=== PATIENT | female | born 1995 | race Caucasian/White ===

== ENCOUNTER 2019-07-16 22:27 | Outpatient (REF) | payer SELFPAY ==
[2019-07-16 22:28] VITALS: BP 121/73; PULSE 68; RESP 18; TEMP 36.8; O2SAT 98; BMI 24.2
--- NOTE | 2019-07-16 22:38 | ED.DCSUM_ITS ---
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 Patient was emptying out a urine sample from a patient that had urinated in a hat. As she was pouring the urine out into the toilet it splashed up and she believes hit her in the left eye. Patient does wear contacts. Patient states this occurred about half an hour ago. Patient did take out her contact and irrigated her eye at the eye station. Patient washed her contact out. Patient is immunized. Patient otherwise has no medical history.] Physical Examination: [HEENT-PERRLA, EOMI. Cranial nerves II through XII grossly intact. TMs clear. Mucous membranes moist. No adenopathy. Cardiovascular-regular rate and rhythm without murmur or ectopy Lungs-clear to auscultation, chest wall stable without crepitus or subcu emphysema Abdomen-normoactive bowel sounds, soft, nontender, no rebound or rigidity, no peritoneal signs. 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 It may contain incorrect words, spelling, and punctuation that were not noted in review of the chart prior to signing ED Disposition - Plan for ED Patient: Referrals: Lorenzo Del Toro DO [Primary Care Provider] -
--- NOTE | 2019-07-16 22:41 | DCINST.ED_ITS ---
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
--- NOTE | 2019-07-16 22:41 | ED.DEP ---
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
[2019-07-17 01:32] LABS: Hepatitis B Surface Antibody Reactive; Hepatitis B Surface Antigen Non-Reactive (Nonreactive); Hepatitis C Antibody Non-Reactive (Nonreactive)
--- NOTE | 2019-07-17 01:42 | ED.RN ---
PT PRELIM HIV REACTIVE REPORTED TO DR. JIMENES. STATES UNDERSTANDING AND VERBALIZES TO CONTINUE PROCESS TO SEND LAB OUT AND FOLLOW UP.
[2019-07-17 01:59] LABS: HIV - WCH Preliminary Reactive (Nonreactive)
== END 2019-07-16 22:52 | disposition home or self-care (01) ==
LOC: ED 22:27
PROVIDERS: PCP Student in an Organized Health Care Education/Training Program; Visit Provider Emergency Medicine
DX: Z77.21 Contact with and (suspected) exposure to potentially hazardous body fluids (principal); Z57.8 Occupational exposure to other risk factors
CPT/HCPCS: 86703; 86706; 86803; 87340

== ENCOUNTER → 2021-01-11 06:09 | Outpatient (CLI) | payer BC, SELFPAY ==
[2021-01-11 07:03] LABS: Absolute Lymphocyte Count 2.34 X10^3/uL (0.83-4.51); Absolute Neutrophil Count 4.1 X10^3/uL (2.0-7.7); Basophil# 0.03 X10^3/uL; Basophil% 0.4 % (0-1); Eosinophil# 0.06 X10^3/uL; Eosinophils% 0.8 % (0-5); Hematocrit 42.2 % (37-47); Hemoglobin 13.7 g/dL (12.0-15.0); Lymphocyte # 2.34 X10^3/ul (0.83-4.51); Lymphocyte % 32.6 % (19-41); Mean Corp Hgb Conc 32.5 g/dL (32-36); Mean Corpuscular Hgb 28.6 pg (27.0-32.0); Mean Corpuscular Volume 88.1 fL (81-99); Mean Platelet Vol. 9.6 fl (6.2-12.0); Monocyte# 0.58 X10^3/uL; Monocyte% 8.1 % (0-10); NRBC Flagged by Analyzer 0 % (0-5); Neutrophil # 4.14 X10^3/uL (2.7-7.7); Neutrophil % 57.8 % (47-70); Platelet Count 305 K/mm3 (150-450); RBC Distribution Width CV 12.4 % (11.6-14.6); RBC Distribution Width SD 40.6 fl (35.1-43.9); Red Blood Count 4.79 M/mm3 (4.2-5.4); White Blood Count 7.2 K/mm3 (4.4-11.0)
[2021-01-11 07:53] LABS: ALB/GLOB Ratio 1.1 RATIO (0.9-2.4); AST(SGOT) 14 U/L (15-37); Alanine Aminotransfer ALT/SGPT 21 U/L (13-56); Albumin, Serum 4.2 g/dL (3.2-5.0); Alkaline Phosphatase 58 U/L (45-117); Anion Gap 9 (5-15); BUN 15 mg/dL (7-18); BUN/Creat Ratio 19.1 RATIO (10-20); Calcium,Total 9.3 mg/dL (8.5-10.1); Chloride 103 mmol/L (98-107); Cholesterol 173 mg/dL (200); Creatinine, Serum 0.78 mg/dL (0.55-1.02); EST Glomerular Filtration Rate 94 mL/min (>60); Est Glom Filt Rate - Afr Amer 114 mL/min (>60); Globulin 3.7 g/dL (2.2-4.2); Glucose 85 mg/dL (74-106); High Density Lipoprotein 76 mg/dL; Potassium 3.5 mmol/L (3.5-5.1); Protein, Total 7.9 g/dL (6.4-8.2); Sodium Level 137 mmol/L (136-145); Thyroid Stim Hormone (TSH) 2.79 uIU/mL (0.358-3.74); Triglycerides 72 mg/dL; Very Low Density Lipoprotein 14 mg/dL (5-40)
[2021-01-11 08:42] LABS: Hemoglobin A1c 5.2 % (3.8-5.6)
[2021-01-11 09:45] LABS: Vitamin D,25 Hydroxy 59.5 ng/mL
== END ==
PROVIDERS: PCP Student in an Organized Health Care Education/Training Program; Referring Provider Student in an Organized Health Care Education/Training Program; Visit Provider Student in an Organized Health Care Education/Training Program
DX: Z00.00 Encounter for general adult medical examination without abnormal findings (principal)
CPT/HCPCS: 36415; 80053; 80061; 82306; 83036; 84443; 85025

== ENCOUNTER 2021-06-22 17:13 | Emergency (ER) | payer OTHER, SELFPAY ==
[2021-06-22 17:14] VITALS: BP 118/82; PULSE 110; RESP 15; TEMP 35.8; O2SAT 98; BMI 24.1
--- NOTE | 2021-06-22 17:28 | EX.ED.DYSGE1 ---
HPI History of Present Illness Chief Complaint: Nausea/Vomiting/Diarrhea Detail of Chief Complaint: Vomiting and diarrhea that started 4 days ago Informant: patient Narrative Narrative: Patient presents to the emergency department complaint not feeling well for the last 4 days. Patient states that she has been having watery stool about every hour. Patient denies any fevers. Patient has not had any sick contacts. She denies eating under cooked foods or suspicious foods. She did have some milk the day before that did not taste quite right she states. Patient describes some mild epigastric pain. Patient also denies dysuria. She denies fever. She denies recent antibiotic usage. Prior similar symptoms: No PFSH PFSH Medical History no medical history Home Medications dicyclomine 20 mg PO TIDAC #20 capsule 06/22/21 [Rx Last Taken Unknown] ondansetron 4 mg PO Q8H PRN PRN #10 tab 06/22/21 [Rx Last Taken Unknown] Allergy/AdvReac Type Severity Reaction Status Date / Time No Known Allergies Allergy Verified 07/16/19 22:30 Social History Smoking Status: Never smoker ROS ROS ED Constitutional Constitutional ED: Reports systems reviewed and no addt'l complaints, except as documented; Denies body ache(s), change in weight or chills Eyes Eyes: Denies acute decrease in peripheral vision, change in vision, double vision or loss of vision ENT ENT ED: Reports none; Denies ear pain, lip swelling, loss taste/smell, neck pain, otalgia or sore throat Cardiovascular Cardiovascular: Reports none; Denies abdominal pain, chest pain with activity, leg edema, lightheadedness, palpitations, rapid heart rate or syncope Respiratory/Chest Respiratory/Chest: Reports none; Denies change in mental status, dry cough, dyspnea, hemoptysis, shortness of breath at rest or shortness of breath with exertion Gastrointestinal Gastrointestinal: Reports none, abdominal pain, diarrhea, nausea and vomiting; Denies change in stool character, hematemesis, hematochezia, melena or rectal bleeding Genitourinary Genitourinary ED: Reports none; Denies abdominal discomfort, anuria, dysuria, genital pain or polyuria Musculoskeletal Musculoskeletal: Reports none; Denies arthralgias, back pain, difficulty walking, extremity pain, muscle weakness or myalgias Integumentary Reports none; Denies abscess or rash Neurologic Neurologic: Reports none; Denies abnormal gait, confusion, focal weakness, frequent falls, headache(s), loss of vision, numbness, paresthesias, radicular pain, vertigo or weakness Psychiatric Psychiatric: Reports systems reviewed and no addt'l complaints, except as documented and none; Denies behavioral changes, confusion, difficulty concentrating, hallucinations, suicidal ideation, tactile hallucinations or visual hallucinations Endocrine Endocrinology: Denies none, cold intolerance, excessive sweating, fatigue or heat intolerance Hematologic/Lymphatic Hematologic/Lymphatic: Reports none; Denies anemia, easy bleeding or easy bruising Allergic/Immunologic Allergic/Immunologic ED: Denies as per HPI, none, lip swelling, mouth swelling, throat swelling, tongue swelling or hives EXAM Physical Exam Const Vital Signs: 06/22/21 17:14 Temperature 96.4 F L Temperature Source Temporal Pulse Rate 110 H Respiratory Rate 15 Blood Pressure 118/82 H Blood Pressure Mean 94 Pulse Ox 98 Oxygen Delivery Method Room Air Positive well nourished and well developed General Appearance ED: well developed and NAD HEENT Reports TM's clear and moist mucous membranes normocephalic and atraumatic; Negative for trauma or tenderness Tympanic Membrane ED: Yes TM's clear Eyes PERRL and EOMs intact bilaterally General Eye ED: Negative for pale conjunctiva or scleral icterus Neck no lymphadenopathy, supple and no JVD General: Negative for tenderness Chest Wall inspection of chest normal and palpation of chest normal Chest: Negative for tenderness Resp normal respiratory effort and clear to auscultation bilaterally Effort and Inspection: Negative for respiratory distress or pain with movement Auscultation: Negative for rhonchi, wheezes or diminished lung sounds Cardio regular rate, regular rhythm, S1 normal heart sound, S2 normal heart sound and no murmurs Peripheral Pulses: pulses 2+ throughout GI normal to inspection, nondistended, normoactive bowel sounds, soft to palpation, non-tender, non-distended and no masses GI Narrative: Patient with some tenderness over the epigastric region. There is no rebound, rigidity, or peritoneal signs. Back/Spine no CVA tenderness and no thoracic nor lumbar tenderness Extremity normal to inspection General Extremety ED: Negative for edema General Extremity: Negative for edema Neuro oriented x3, CN's II-XII intact bilaterally, no sensory deficits noted and gait normal Sensorium / Orientation: awake, alert, oriented to person, oriented to place and oriented to time Motor Exam: strength 5/5 throughout and strength abnormal Psych mental status grossly normal Skin no rashes or lesions noted and no wounds MDM MDM MDM Narrative Medical decision making narrative: IV line established on arrival. Patient was given a liter normal same fluid bolus as well as Zofran and dicyclomine. Patient did feel improved. Lab work-up unremarkable and consistent with a viral gastroenteritis. Patient will be given a prescription for Zofran and Bentyl and advised to follow-up with primary care physician with the next 3 to 5 days. Patient advised to return if persistent vomiting, diarrhea, dehydration, fever, worsening abdominal pain, or condition worsen anyway. Lab Data Attestation: I reviewed the patient's lab results. Labs: Laboratory Results - last 24 hr 06/22/21 06/22/21 06/22/21 17:35 17:35 17:35 WBC 4.0 L RBC 5.28 Hgb 15.1 H Hct 43.8 MCV 83.0 MCH 28.6 MCHC 34.5 RDW Std Deviation 37.3 RDW Coeff of Jennifer 12.2 Plt Count 283 MPV 9.3 Immature Gran % (Auto) 0.200 Neut % (Auto) 71.4 H Lymph % (Auto) 18.2 L [place] % (Auto) 9.2 Eos % (Auto) 0.5 Baso % (Auto) 0.5 Absolute Neuts (auto) 2.9 Absolute Lymphs (auto) 0.73 L Nucleated RBC % 0 Sodium 136 Potassium 3.8 Chloride 109 H Carbon Dioxide 22.0 Anion Gap 5 BUN 14 Creatinine 0.88 Estim Creat Clear Calc 94.21 Est GFR (MDRD) Af Amer 99 Est GFR (MDRD) Non-Af 82 BUN/Creatinine Ratio 15.9 Glucose 96 Calcium 9.4 Total Bilirubin 0.30 AST 15 ALT 20 Alkaline Phosphatase 65 Total Protein 8.1 Albumin 4.2 Globulin 3.9 Albumin/Globulin Ratio 1.1 Lipase 91 Serum , Qual NEGATIVE Urine Color Urine Clarity Urine pH Ur Specific [place] Urine Protein Urine Glucose (UA) Urine Ketones Urine Occult Blood Urine Nitrite Urine Bilirubin Urine Urobilinogen Ur Leukocyte Esterase Urine RBC Urine WBC Ur Squamous Epith Cells Calcium Oxalate Crystal Urine Bacteria Urine Mucus 06/22/21 17:49 WBC RBC Hgb Hct MCV MCH MCHC RDW Std Deviation RDW Coeff of Jennifer Plt Count MPV Immature Gran % (Auto) Neut % (Auto) Lymph % (Auto) [place] % (Auto) Eos % (Auto) Baso % (Auto) Absolute Neuts (auto) Absolute Lymphs (auto) Nucleated RBC % Sodium Potassium Chloride Carbon Dioxide Anion Gap BUN Creatinine Estim Creat Clear Calc Est GFR (MDRD) Af Amer Est GFR (MDRD) Non-Af BUN/Creatinine Ratio Glucose Calcium Total Bilirubin AST ALT Alkaline Phosphatase Total Protein Albumin Globulin Albumin/Globulin Ratio Lipase Serum , Qual Urine Color Cailin Urine Clarity Sl. Cloudy Urine pH 5.0 Ur Specific [place] 1.030 Urine Protein 30 H Urine Glucose (UA) Normal Urine Ketones 50 H Urine Occult Blood 10 H Urine Nitrite Negative Urine Bilirubin 1 H Urine Urobilinogen Normal Ur Leukocyte Esterase Negative Urine RBC 0-5 SEEN Urine WBC 0-5 SEEN Ur Squamous Epith Cells 5-10 SEEN Calcium Oxalate Crystal 1+ Urine Bacteria 2+ Urine Mucus 0 SEEN Discharge Plan Triage Chief Complaint: Nausea/Vomiting/Diarrhea ED Provider: Frida Glass Dx/Rx/DC Orders Clinical Impression: Viral gastroenteritis Instructions: ED Gastroenteritis, Viral (Adult) Prescriptions: New ondansetron [ondansetron] 4 MG tablet 4 mg PO Q8H PRN PRN (Reason: Nausea) Qty: 10 RF: 0 dicyclomine 10 MG capsule 20 mg PO TIDAC Qty: 20 RF: 0 Primary Care Provider: Lorenzo Del Toro Referrals: Lorenzo Del Toro DO [Primary Care Provider] - 3-5 Days Disposition Disposition: Home, Self Care
[2021-06-22] MEDS: Ondansetron 4 MG/2 ML Vial IV (17:44)
[2021-06-22] MEDS: Dicyclomine 20 MG/2 ML Vial IM (17:44)
[2021-06-22] MEDS: 0.9% Normal Saline 1,000 ML 1000 ML IV (17:44)
[2021-06-22 17:53] LABS: Mucous, Urine 0 SEEN /hpf (<or=2+)
[2021-06-22 17:56] LABS: Absolute Lymphocyte Count 0.73 X10^3/uL (0.83-4.51); Absolute Neutrophil Count 2.9 X10^3/uL (2.0-7.7); Basophil# 0.02 X10^3/uL; Basophil% 0.5 % (0-1); Eosinophil# 0.02 X10^3/uL; Eosinophils% 0.5 % (0-5); Hematocrit 43.8 % (37-47); Hemoglobin 15.1 g/dL (12.0-15.0); Lymphocyte # 0.73 X10^3/ul (0.83-4.51); Lymphocyte % 18.2 % (19-41); Mean Corp Hgb Conc 34.5 g/dL (32-36); Mean Corpuscular Hgb 28.6 pg (27.0-32.0); Mean Platelet Vol. 9.3 fl (6.2-12.0); Monocyte# 0.37 X10^3/uL; Monocyte% 9.2 % (0-10); NRBC Flagged by Analyzer 0 % (0-5); Neutrophil # 2.87 X10^3/uL (2.7-7.7); Neutrophil % 71.4 % (47-70); Platelet Count 283 K/mm3 (150-450); RBC Distribution Width CV 12.2 % (11.6-14.6); RBC Distribution Width SD 37.3 fl (35.1-43.9); Red Blood Count 5.28 M/mm3 (4.2-5.4)
[2021-06-22 17:58] LABS: Color, Urine Amber (Yellow); Glucose, Dipstick Normal (Normal); Ketone-Dipstick 50 mg/dl (Negative); Leukocyte Esterase-Dipstick Negative /ul (Negative); Nitrite-Dipstick Negative (Negative); Occult Blood-Urine 10 /ul (Negative); Protein-Dipstick 30 mg/dl (Negative); Urine Clarity Sl. Cloudy (Clear); Urine Urobilinogen Normal (Normal)
[2021-06-22 18:09] LABS: Urine Bilirubin Dipstick 1 mg/dL (Negative)
[2021-06-22 18:10] LABS: Squamous Epithelial Cells - UA 5-10 SEEN /hpf (5-10)
[2021-06-22 18:11] LABS: Bacteria 2+ /hpf (None Seen); Calcium Oxalate Crystals Ur 1+ /hpf (<or=2+); Red Blood Cells-Urine 0-5 SEEN /hpf (0-5); White Blood Cells 0-5 SEEN /hpf (0-5)
[2021-06-22 18:17] LABS: ALB/GLOB Ratio 1.1 RATIO (0.9-2.4); AST(SGOT) 15 U/L (15-37); Alanine Aminotransfer ALT/SGPT 20 U/L (13-56); Albumin, Serum 4.2 g/dL (3.2-5.0); Alkaline Phosphatase 65 U/L (45-117); Anion Gap 5 (5-15); BUN 14 mg/dL (7-18); BUN/Creat Ratio 15.9 RATIO (10-20); Calcium,Total 9.4 mg/dL (8.5-10.1); Chloride 109 mmol/L (98-107); Creatinine, Serum 0.88 mg/dL (0.55-1.02); EST Glomerular Filtration Rate 82 mL/min (>60); Est Glom Filt Rate - Afr Amer 99 mL/min (>60); Estimated Creatinine Clearance 94.21 ml/min; Globulin 3.9 g/dL (2.2-4.2); Glucose 96 mg/dL (74-106); Lipase 91 U/L (73-393); Potassium 3.8 mmol/L (3.5-5.1); Protein, Total 8.1 g/dL (6.4-8.2); Sodium Level 136 mmol/L (136-145)
[2021-06-22 18:25] LABS: Internal QC Validated? YES +Cl - CLEAR BKGD; Pregnancy, Serum, hCG Quali. NEGATIVE Negative
[2021-06-22 18:46] VITALS: BP 130/67; PULSE 80; RESP 16
== END 2021-06-22 18:47 | disposition home or self-care (01) ==
PROVIDERS: Emergency Provider Emergency Medicine; PCP Student in an Organized Health Care Education/Training Program; Visit Provider Emergency Medicine
DX: A08.4 Viral intestinal infection, unspecified (principal)
CPT/HCPCS: 80053; 81001; 83690; 84703; 85025; 96361; 96372; 96374; 99283; J7030; J2405

== ENCOUNTER → 2022-01-11 | Outpatient (CLI) | payer OTHER, SELFPAY ==
[2022-01-11 08:28] LABS: Free T3 2.8 pg/mL (2.18-3.98); T4 Free Direct 1.68 ng/dL (0.76-1.46); Thyroid Stim Hormone (TSH) 2.39 uIU/mL (0.358-3.74)
[2022-01-12 12:33] LABS: Thyroid Peroxidase AB 11 IU/mL (0-34)
== END | disposition home or self-care (01) ==
LOC: LAB 06:26
PROVIDERS: PCP Student in an Organized Health Care Education/Training Program; Referring Provider Student in an Organized Health Care Education/Training Program; Visit Provider Student in an Organized Health Care Education/Training Program
DX: E01.0 Iodine-deficiency related diffuse (endemic) goiter (principal)
CPT/HCPCS: 36415; 84439; 84443; 84481; 86376

== ENCOUNTER → 2024-02-11 | Outpatient (CLI) | payer OTHER, SELFPAY ==
[2024-02-11 14:40] LABS: Hematocrit 39.7 % (37-47); Hemoglobin 13.4 g/dL (12.0-15.0); Mean Corp Hgb Conc 33.8 g/dL (32-36); Mean Corpuscular Hgb 28.4 pg (27.0-32.0); Mean Corpuscular Volume 84.1 fL (81-99); Mean Platelet Vol. 9.6 fl (6.2-12.0); Platelet Count 290 K/mm3 (150-450); RBC Distribution Width CV 12.9 % (11.6-14.6); RBC Distribution Width SD 39.5 fl (35.1-43.9); Red Blood Count 4.72 M/mm3 (4.2-5.4); White Blood Count 6.3 K/mm3 (4.4-11.0)
[2024-02-11 15:10] LABS: Free T3 2.3 pg/mL (2.18-3.98); T4 Free Direct 2.29 ng/dL (0.76-1.46)
[2024-02-11 15:19] LABS: Hemoglobin A1c 5.3 % (3.8-5.6)
[2024-02-11 19:12] LABS: HIV - WCH Preliminary Reactive (Nonreactive); Hepatitis B Surface Antigen Non-Reactive (Nonreactive); Hepatitis C Antibody Non-Reactive (Nonreactive); Rubella IgG Reactive (Nonreactive); Syphilis Antibodies Non-reactive; Vitamin D,25 Hydroxy 38.5 ng/mL
== END | disposition home or self-care (01) ==
PROVIDERS: PCP Student in an Organized Health Care Education/Training Program; Referring Provider Student in an Organized Health Care Education/Training Program; Visit Provider Student in an Organized Health Care Education/Training Program
DX: Z34.91 Encounter for supervision of normal pregnancy, unspecified, first trimester (principal); Z3A.00 Weeks of gestation of pregnancy not specified
CPT/HCPCS: 36415; 82306; 83036; 84439; 84443; 84481; 85027; 86703; 86762; 86780; 86803; 86850; 86900; 86901; 87340

== ENCOUNTER 2024-08-20 11:10 | Inpatient (IN) | payer OTHER, SELFPAY ==
[2024-08-20] VITALS (56 sets, daily range): BP systolic 88–133; BP diastolic 46–89; PULSE 69–196; RESP 14–18; TEMP 36.1–37.4; O2SAT 91–100; BMI 29.1
--- OUTSIDE RECORDS SUMMARY | 2024-08-20 07:28 | XMS RPT_ITS | CCD ---
Author Organization [facility] Care Team Providers Care [employer] T[employer] Worker Name Role Phone JEANCARLOS GOLDSTEIN GENE Unavailable Unavailable JEANCARLOS GOLDSTEIN GENE Unavailable Unavailable TristonAbelJeancarlos G Unavailable Unavailable HUNTER FLOREZ Unavailable Unavailable Jeancarlos Goldstein G Unavailable Unavailable LORENZO DEL TORO Unavailable Unavailable Dr. Lorenzo Del Toro Primary Care Provider Dr. Lorenzo Del Toro Referring Provider Dr. Stephon Vela Attending Provider Lorenzo Del Toro DO Primary Care Provider Lorenzo Del Toro DO Primary Care Provider Lorenzo Dle Toro DO Primary Care Provider Kwong BILLING ANALYST.Kaitlynn MARTINEZ Unavailable Fanny BILLING ANALYST.Jocelyne MARTINEZ Unavailable Lorenzo Del Toro Referring Unavailable Lorenzo Del Toro Attending Unavailable Lorenzo Del Toro Primary Care Unavailable Kwong BILLING ANALYST.Kaitlynn MARTINEZ Unavailable LORENZO DEL TORO Primary Care Unavailable LORENZO DEL TORO Attending Unavailable LORENZO DEL TORO Primary Care Unavailable APRIL DA SILVA Attending Unavail able LORENZO DEL TORO Primary Care Unavailable BEATA DAHL Attending Unavailable LORENZO DEL TORO Primary Care Unavailable BEATA DAHL Attending Unavailable LORENZO DEL TORO Primary Care Unavailable BEATA DAHL Attending Unavailable LORENZO DEL TORO Primary Care Unavailable MALIA ROMERO Attending Unavailable LORENZO DEL TORO Primary Care Unavailable TAYLOR KING Attending Unavailable LORENZO DEL TORO Primary Care Unavailable LORENZO DEL TORO Primary Care Unavailable MALIA ROMERO Attending Unavailable LORENZO DEL TORO Primary Care Unavailable APRIL DA SILVA Attending Unavail able LORENZO DEL TORO Primary Care Unavailable MARY SHIN Attending Unavailable LORENZO DEL TORO Primary Care Unavailable APRIL DA SILVA Attending Unavail able LORENZO DEL TORO Primary Care Unavailable MARY SHIN Attending Unavailable LORENZO DEL TORO Primary Care Unavailable BEATA DAHL Attending Unavailable LORENZO DEL TORO Primary Care Unavailable KEVIN BRADFORD Attending Unavailable BEATA DAHL Referring Unavailable LORENZO DEL TORO Primary Care Unavailable BEATA DAHL Referring Unavailable LORENZO DEL TORO Primary Care Unavailable BEATA DAHL Attending Unavailable LORENZO DEL TORO Primary Care Unavailable Medications Current Medications Medication Drug Class(es) Dates Sig (Normalized) Sig (Original) aspirin 81 mg delayed release oral tablet (20 sources) Platelet Aggregation Inhibitor, Nonsteroidal Anti-inflammatory Drug Start: 01-07-2024 End: 04-03-2024 take 1 tablet by mouth once daily aspirin, enteric coated (ECOTRIN LOW STRENGTH) 81 mg EC tablet Indications: Supervision of other normal , antepartum (HCC) , with uncertain dates in first trimester (HCC) Take 1 tablet by mouth once daily. 90 tablet 3 04/03/2024 Active Calcium Carbonate (11 sources) calcium carbonat e (TUMS 500 ORAL) Active cholecalciferol 0.025 mg oral tablet (20 sources) Vitamin D Start: 07-02-2017 take 1 tablet by mouth once daily cholecalciferol (VITAMIN D3) 1,000 unit tab tablet Take 1 tablet by mouth once daily. 90 tablet 1 07/02/2017 Active Comment on above: Take 1 tablet by erick th once daily. dicyclomine hydrochloride 10 mg oral capsule (1 source) Anticholinergic Start: 06-22-2021 take 20 mg by mouth three times daily before mealtime Dicyclomine Active 20 MG PO THREE TIMES DAILY BEFORE MEALS June 22, 2021 6:31pm docusate sodium 100 mg oral tablet (11 sources) Start: 03-21-2024 Docusate Sodium 100 mg tab 03/21/2024 Active famotidine 20 mg oral tablet (4 sources) Histamine-2 Receptor Antagonist Start: 06-11-2024 take 1 tablet by mouth twice daily famotidine (PEPCID) 20 mg tablet Take 20 mg by mouth two times a day. 06/11/2024 Active ondansetron 4 mg oral tablet (4 sources) Serotonin-3 Receptor Antagonist Start: 03-13-2024 End: 04-12-2024 take 1 tablet by mouth every eight hours as needed ondansetron (ZOFRAN) 4 mg tablet Take 1 tablet by mouth every 8 hours as needed for nausea/vomiting. 40 tablet 1 03/13/2024 04/12/2024 Active Start: 06-22-2021 take 4 mg by mouth e very eight hours as needed Ondansetron Active 4 MG PO EVERY 8 HOURS NEEDED June 22, 2021 6:31pm 25/iron fum/folic/d villar (-1 ORAL) (20 sources) take 1 tablet by erick th once daily 25/iron fum/folic/dha (-1 ORAL) Take 1 tablet by mouth once daily. Active take 1 tablet by mouth once mike y 25/iron fum/folic/dha (-1 ORAL) Take 1 tablet by mouth once daily. 0 Active Comment on above: Take 1 tablet by erick th once daily. Completed/Discontinued Medications Medication Drug Class(es) Dates Sig (Normalized) Sig (Original) MULTIVITAMIN ORAL (2 sources) End: 12-31-2022 MULTIVITAMIN ORAL Take by mouth. 0 12/31/2022 Discontinued (Course of therapy completed) MULTIVITAMIN ORA L Take by mouth. 0 Active Comment on above: Take by mouth. vitamin b6 100 mg oral tablet (7 sources) End: 07-06-2024 pyridoxine, vitamin B6, (VITAMIN B-6) 100 mg tablet 07/06/2024 Discontinued (Course of therapy completed) Problems Active Problems Problem Classification Problem Date Documented Da te Episodic/Chronic Intestinal infection (1 source) Viral gastroenteritis; Translations: [Viral intestinal infection, unspecified] Episodic Other complications of (1 source) Vomiting of , unspecified; Translations: [Unspecified vomiting of , unspecified as to episode of care or not applicable] 03-13-2024 Episodic Other complications of (3 sources) RhD negative; Translations: [Other specified related conditions, unspecified trimester] 05-27-2024 Episodic Other complications of (1 source) Other specified related conditions, unspecified trimester; Translations: [Rh negative state in antepartum period (HCC)] Onset: 07-28-2024 Episodic Other and delivery including normal (20 sources) with uncertain dates; Translations: [Encounter for supervision of normal , unspecified, first trimester] Onset: 01-07-2024 01-07-2024 Episodic Other screening for suspected conditions (not mental disorders or infectious disease) (7 sources) Patient encounter status; Translations: [Encounter for other specified screening] Onset: 04-03-2024 02-14-2024 Episodic Residual codes; unclassified (1 source) Gestation period, 9 weeks; Translations: [9 weeks gestation of ] 01-21-2024 Episodic Residual codes; unclassified (3 sources) Gestation period, 13 weeks; Translations: [13 weeks gestation of ] 02-14-2024 Episodic Residual codes; unclassified (1 source) Gestation period, 16 weeks; Translations: [16 weeks gestation of ] 03-10-2024 Episodic Residual codes; unclassified (2 sources) Gestation period, 20 weeks; Translations: [20 weeks gestation of ] 04-03-2024 Episodic Residual codes; unclassified (1 source) Gestation period, 24 weeks; Translations: [24 weeks gestation of ] 05-01-2024 Episodic Residual codes; unclassified (1 source) Gestation period, 27 weeks; Translations: [27 weeks gestation of ] 05-27-2024 Episodic Residual codes; unclassified (1 source) Gestation period, 29 weeks; Translations: [29 weeks gestation of ] 06-09-2024 Episodic Residual codes; unclassified (1 source) Gestation period, 31 weeks; Translations: [31 weeks gestation of ] 06-22-2024 Episodic Residual codes; unclassified (1 source) Gestation period, 33 weeks; Translations: [33 weeks gestation of ] 07-06-2024 Episodic Residual codes; unclassified (1 source) Gestation period, 35 weeks; Translations: [35 weeks gestation of ] 07-20-2024 Episodic Residual codes; unclassified (1 source) Gestation period, 36 weeks; Translations: [36 weeks gestation of ] 07-28-2024 Episodic Residual codes; unclassified (1 source) Gestation period, 38 weeks; Translations: [38 weeks gestation of ] 08-11-2024 Episodic Residual codes; unclassified (1 source) 39 weeks gestation of ; Translations: [39 weeks gestation of (HCC)] Onset: 08-19-2024 Episodic Residual codes; unclassified (1 source) 38 weeks gestation of ; Translations: [38 weeks gestation of (HCC)] Onset: 08-11-2024 Episodic Residual codes; unclassified (1 source) 37 weeks gestation of ; Translations: [37 weeks gestation of (HCC)] Onset: 08-04-2024 Episodic Residual codes; unclassified (1 source) 36 weeks gestation of ; Translations: [36 weeks gestation of ([facility])] Onset: 07-28-2024 Episodic Residual codes; unclassified (1 source) Unspecified blood type, Rh negative; Translations: [Rh negative state in antepartum period ([facility])] Onset: 07-28-2024 Episodic Residual codes; unclassified (1 source) 35 weeks gestation of ; Translations: [35 weeks gestation of ([facility])] Onset: 07-20-2024 Episodic Residual codes; unclassified (1 source) 33 weeks gestation of ; Translations: [33 weeks gestation of ([facility])] Onset: 07-06-2024 Episodic Residual codes; unclassified (1 source) 24 weeks gestation of ; Translations: [24 weeks gestation of ] Onset: 05-27-2024 Episodic Thyroid disorders (1 source) Goiter; 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 Unclassified (2 sources) Unknown / UNK(Unknown) Onset: 10-29-2017 Unclassified (20 sources) [facility] Education - COMMON Onset: 01-07-2024 01-07-2024 Unclassified (20 sources) Education - [place] Onset: 01-07-2024 01-07-2024 Past or Other Problems Problem Classification Problem Date Documented Da te Episodic/Chronic Abdominal pain (20 sources) Right upper quadrant pain; Translations: [Right upper quadrant pain] Onset: 06-27-2015 Resolved: 04-03-2024 06-27-2015 Episodic Nutritional deficiencies (20 sources) Vitamin D deficiency; Translations: [Vitamin D deficiency, unspecified] Onset: 12-16-2017 Resolved: 04-03-2024 12-16-2017 Chronic Other connective tissue disease (20 sources) Disorder of Achilles tendon; Translations: [Achilles tendinitis, unspecified leg] Onset: 06-16-2008 Resolved: 04-03-2024 06-16-2008 Episodic Residual codes; unclassified (16 sources) Finding of HIV status; Translations: [Other specified health status] Onset: 02-17-2024 02-17-2024 Episodic Residual codes; unclassified (1 source) 9 weeks gestation of ; Translations: [9 weeks gestation of ] Onset: 01-21-2024 Episodic Unclassified (1 source) employee health Onset: 10-29-2017 Results Test Name Value Interpretation Reference Range Facil ity URINE OB DIP B/Oon 5 Glucose Ql (U) Negative Neg mg/dL [facility] [place] Protein.monoclonal (U) [Mass/Vol] Negative Neg mg/dL [facility] ROUTINE, GROUP B ST REPTOCOCCUS BY PCRon 07-28-2024 ROUTINE, GROUP B STREPTOCOCCUS BY PCR Not detected Normal [facility] Comment on above: Performed By: #### G BPCR ####[facility] LABCLIA [id number] [place] [address] [place] URINE OB DIP B/Oon 5 Glucose Ql (U) Negative Neg mg/dL [facility] Interpretation and review of laboratory results Normal [facility] Protein.monoclonal (U) [Mass/Vol] Negative Neg mg/dL [facility] CBC W Auto Differential pane l (Bld)on 05-27-2024 Basophils (Bld) [#/Vol] 0.03 10*3/uL Normal <0.11 [facility] Comment on above: Order Comment: Becca saenz Type: BLOOD SPECIMENOrdering Facility: [facility] Address: [address] [place] [address] Performed By: #### 5 7021-8 ####[facility] [id number] [place] [address] [place] Basophils/100 WBC (Bld) 0.3 % Normal [facility] Comment on above: Order Comment: Speci men Type: BLOOD SPECIMENOrdering Facility: [facility] Address: [address] [place] [address] Performed By: #### 5 7021-8 ####[facility] LUI [id number] [place] [address] [place] Differential cell count method Nom (Bld) Auto Normal [facility] Comment on above: Order Comment: Speci men Type: BLOOD SPECIMENOrdering Facility: [facility] Address: [address] [place] [address] Performed By: #### 5 7021-8 ####[facility]NCJUVENCIO [id number] [place] [address] [place] Eosinophils (Bld) [#/Vol] 0.19 10*3/uL Normal <0.46 [facility] Comment on above: Order Comment: Speci men Type: BLOOD SPECIMENOrdering Facility: [facility] Address: [address] [place] [address] Performed By: #### 5 7021-8 ####[facility]ITALNCJOSELINEA [id number] [place] [address] [place] Eosinophils/100 WBC (Bld) 2.0 % Normal [facility] Comment on above: Order Comment: Speci men Type: BLOOD SPECIMENOrdering Facility: [facility] Address: [address] [place] [address] Performed By: #### 5 7021-8 ####[facility]ITALNCLIA [id number] [place] [address] [place] Erythrocyte distribution width (RBC) [Ratio] 13.0 % Normal 11.5-15.0 [facility] Comment on above: Order Comment: Speci men Type: BLOOD SPECIMENOrdering Facility: [facility] Address: [address] [place] [address] Performed By: #### 5 7021-8 ####[facility]ITALMENDYLIA [id number] [place] [address] [place] Hematocrit (Bld) [Volume fraction] 34.9 % Low 36.0-46.0 [facility] Comment on above: Order Comment: Speci men Type: BLOOD SPECIMENOrdering Facility: [facility] Address: [address] [place] [address] Performed By: #### 5 7021-8 ####[facility]ITALOZZIE [id number] [place] [address] [place] Hemoglobin (Bld) [Mass/Vol] 11.8 g/dL Normal 11.5-15.5 [facility] Comment on above: Order Comment: Speci men Type: BLOOD SPECIMENOrdering Facility: [facility] Address: [address] [place] [address] Performed By: #### 5 7021-8 ####[facility] [id number] [place] [address] [place] Immature granulocytes (Bld) [#/Vol] 0.05 10*3/uL Normal <0.10 [facility] Comment on above: Order Comment: Speci men Type: BLOOD SPECIMENOrdering Facility: [facility] Address: [address] [place] [address] Performed By: #### 5 7021-8 ####[facility]ITAL[facility] [id number] [place] [address] [place] Immature granulocytes/100 WBC (Bld) 0.5 % Normal [facility] Comment on above: Order Comment: Speci men Type: BLOOD SPECIMENOrdering Facility: [facility] Address: [address] [place] [address] Performed By: #### 5 7021-8 ####[facility]ITALNCLIA [id number] [place] [address] [place] Lymphocytes (Bld) [#/Vol] 1.26 10*3/uL Normal 1.00-4.00 [facility] Comment on above: Order Comment: Speci men Type: BLOOD SPECIMENOrdering Facility: [facility] Address: [address] [place] [address] Performed By: #### 5 7021-8 ####[facility] [id number] [place] [address] [place] Lymphocytes/100 WBC (Bld) 13.4 % Normal [facility] Comment on above: Order Comment: Speci men Type: BLOOD SPECIMENOrdering Facility: [facility] Address: [address] [place] [address] Performed By: #### 5 7021-8 ####[facility] [id number] [place] [address] [place] MCH (RBC) [Entitic mass] 29.4 pg Normal 26.0-34.0 [facility] Comment on above: Order Comment: Speci men Type: BLOOD SPECIMENOrdering Facility: [facility] Address: [address] [place] [address] Performed By: #### 5 7021-8 ####[facility] [id number] [place] [address] [place] MCHC (RBC) [Mass/Vol] 33.8 g/dL Normal 30.5-36.0 [facility] Comment on above: Order Comment: Speci men Type: BLOOD SPECIMENOrdering Facility: [facility] Address: [address] [place] [address] Performed By: #### 5 7021-8 ####[facility] [id number] [place] [address] [place] MCV (RBC) [Entitic vol] 86.8 fL Normal 80.0-100.0 [facility] Comment on above: Order Comment: Speci men Type: BLOOD SPECIMENOrdering Facility: [facility] Address: [address] [place] [address] Performed By: #### 5 7021-8 ####[facility] RANDALLIA [id number] [place] [address] [place] Monocytes (Bld) [#/Vol] 0.60 10*3/uL Normal <0.87 [facility] Comment on above: Order Comment: Speci men Type: BLOOD SPECIMENOrdering Facility: [facility] Address: [address] [place] [address] Performed By: #### 5 7021-8 ####[facility]OSPITALWMENDYLIA [id number] [place] [address] [place] Monocytes/100 WBC (Bld) 6.4 % Normal [facility] Comment on above: Order Comment: Speci men Type: BLOOD SPECIMENOrdering Facility: [facility] Address: [address] [place] [address] Performed By: #### 5 7021-8 ####[facility]ITALMENDYLIA [id number] [place] [address] [place] Neutrophils (Bld) [#/Vol] 7.24 10*3/uL Normal 1.45-7.50 [facility] Comment on above: Order Comment: Speci men Type: BLOOD SPECIMENOrdering Facility: [facility] Address: [address] [place] [address] Performed By: #### 5 7021-8 ####[facility] HOSPITALWNCLIA [id number] [place] [address] [place] Neutrophils/100 WBC (Bld) 77.4 % Normal [facility] Comment on above: Order Comment: Speci men Type: BLOOD SPECIMENOrdering Facility: [facility] Address: [address] [place] [address] Performed By: #### 5 7021-8 ####[facility] HOSPITALLIA [id number] [place] [address] [place] Nucleated RBC (Bld) [#/Vol] 10*3/uL Normal <0.01 [facility] Comment on above: Order Comment: Speci men Type: BLOOD SPECIMENOrdering Facility: [facility] Address: [address] [place] [address] Performed By: #### 5 7021-8 ####[facility] [id number] [place] [address] [place] Nucleated RBC/100 WBC (Bld) [Ratio] 0.0 /100 WBC Normal [facility] Comment on above: Order Comment: Speci men Type: BLOOD SPECIMENOrdering Facility: [facility] Address: [address] [place] [address] Performed By: #### 5 7021-8 ####[facility] [id number] [place] [address] [place] Platelet mean volume (Bld) [Entitic vol] 9.1 fL Normal 9.0-12.7 [facility] Comment on above: Order Comment: Speci men Type: BLOOD SPECIMENOrdering Facility: [facility] Address: [address] [place] [address] Performed By: #### 5 7021-8 ####[facility] [id number] [place] [address] [place] Platelets (Bld) [#/Vol] 313 10*3/uL Normal 150-400 [facility] Comment on above: Order Comment: Speci men Type: BLOOD SPECIMENOrdering Facility: [facility] Address: [address] [place] [address] Performed By: #### 5 7021-8 ####[facility] HOSPITALLI [id number] [place] [address] [place] RBC (Bld) [#/Vol] 4.02 10*6/uL Normal 3.90-5.20 [place] Comment on above: Order Comment: Speci men Type: BLOOD SPECIMENOrdering Facility: [facility] Address: [address] [place] [address] Performed By: #### 5 7021-8 ####[facility]ITALNCSANPET[facility] [id number] [place] [address] [place] WBC (Bld) [#/Vol] 9.37 10*3/uL Normal 3.70-11.00 [place] Comment on above: Order Comment: Speci men Type: BLOOD SPECIMENOrdering Facility: [facility] Address: [address] [place] [address] Performed By: #### 5 7021-8 ####[facility] [id number] [place] [address] [place] GESTATIONAL GLUCOSE SCREEN, 1-HOUR, 50 GRAM, NON-FASTINGon 05-27-2024 Glucose [Mass/Vol] 119 mg/dL Normal 74-134 [facility] Comment on above: Order Comment: Speci men Type: BLOOD SPECIMENOrdering Facility: [facility] Address: [address] [place] [address] Result Comment: [facility] Congress of Obstetricians and Gynecologists (Andersen/Yajaira) guidelines state a gestational diabetes mellitus positive screen is made, in women not previously diagnosed with overt diabetes, when the 1 hr plasma glucose level is equal to or above 140 mg/dL. [facility] [place] Marketing Automation Specialist and [facility] [place] recommends a 135 mg/dL cutoff. Performed By: #### G LTGST ####[facility] [id number] [place] [address] [place] Reagin and Treponema pallidu m IgG and IgM [Interp]on 05-27-2024 T. pallidum IgG+IgM IA Ql (S) Non-Reactive Normal Nonreactive [facility] Comment on above: Order Comment: Speci men Type: BLOOD SPECIMENOrdering Facility: [facility] Address: [address] [place] [address] Performed By: #### 7 3752-8 ####[facility] LABCLIA [id number] [place] [address] [place] Reagin+T pallidum IgG+IgM Se rPl-Impon 05-27-2024 Reagin and Treponema pallidum IgG and IgM [Interp] Cannot exclude recent Treponemal infection if specimen collected within 7-10 days after appearance of suspect lesions or 2-3 weeks after an exposure. Clinical correlation is required. Normal [facility] Comment on above: Order Comment: Speci men Type: BLOOD SPECIMENOrdering Facility: [facility] Address: [address] [place] [address] Performed By: #### 7 3752-8 ####[facility] LABCLIA [id number] [place] [address] [place] TYPE + SCREEN PRENATALon ABO A Normal [facility] Comment on above: Order Comment: Speci men Type: BLOOD SPECIMEN Ordering Facility: [facility] Address: [address] [place] [address] Performed By: #### T SPN #### [facility] CLIA [id number] [address] [place] [address] [place] Rh Nom (Bld) Negative Normal [facility] Comment on above: Order Comment: Speci men Type: BLOOD SPECIMEN Ordering Facility: [facility] Address: [address] [place] [address] Performed By: #### T SPN #### [facility] CLIA [id number] [address] [place] [address] [place] TYPE AND SCREEN EXPIRATION 05/30/2024 23:59 Normal [facility] Comment on above: Order Comment: Speci men Type: BLOOD SPECIMEN [facility]ing Facility: [facility] Address: [address] [place] [address] Performed By: #### T KYARAN #### [facility] [id number] [address] [place], [place] [address] [facility] Examination level ultrasound on 04-03-2024 Indication Standard anatomic survey Impression REMOTE READ The patient is referred for a standard anatomic survey. - Single, live, intrauterine . - biometry is consistent with the established gestational age. - No malformations were visualized on a complete standard anatomic survey. - The amniotic fluid volume is normal amount. - The placenta is anterior, fundal. - The Transabdominal cervical length measures 36.4 mm with no evidence of funneling or other dynamic changes. - Not all structural malformations can be detected by ultrasound examination. Recommendations Additional follow-up as clinically indicated. Maternal Assessment Height 170 cm Height (ft) 5 ft Height (in) 7 in Physical Exam Initial weight (lb) 147 lb Initial BMI 23.02 kg/m Maternal assessment other: 1 Para 0 Method Transabdominal ultrasound examination. View: Suboptimal view: limited by position Torres . Number of fetuses: 1 Dating LMP on: 11/15/2023 GA by LMP 20 w + 0 d KILEY by LMP: 08/21/2024 GA by prior assessment 20 w + 0 d KILEY by prior assessment: 08/21/2024 Ultrasound examination on: 04/03/2024 GA by U/S based upon: AC, BPD, Femur, HC GA by U/S 20 w + 5 d KILEY by U/S: 08/16/2024 Assigned: based on stated KILEY, selected on 04/03/2024 Assigned GA 20 w + 0 d Assigned KILEY: 08/21/2024 General Evaluation Cardiac activity present. FHR 141 bpm. movements: present. Presentation: breech Placenta: Placental site: anterior, fundal Umbilical cord: Cord vessels: 3 vessel cord Amniotic fluid: Amount of AF: normal amount. MVP 5.4 cm Growth Overview Exam date GA BPD (mm) HC (mm) AC (mm) FL (mm) HL (mm) EFW (g) 04/03/2024 20w 0d 51.5 96% 190.5 86% 153.6 63% 30.4 42% 31.1 67% 339 57% Biometry Standard BPD 51.5 mm 21w 4d 96% Hadlock OFD 67.4 mm 21w 1d 99% Nicolaides HC 190.5 mm 21w 2d 86% Jenna Cerebellum tr 21.5 mm 20w 2d 84% Hill Nuchal fold 4.7 mm AC 153.6 mm 20w 4d 63% Hadlock Femur 30.4 mm 19w 4d 42% Jenna Humerus 31.1 mm 20w 2d 67% Jenna EFW 339 g 20w 1d 57% Hadlock EFW (lb) 0 lb EFW (oz) 12 oz EFW by: Hadlock (HC-AC-FL) Extended Chief Knowledge Officer 7.3 mm CM 2.6 mm 1% Nicolaides Extremities / Bony Struc FL / HC 0.16 <1% Hadlock Other Structures FHR 141 bpm Anatomy Cranium: normal Lateral ventricles: normal Choroid plexus: normal Midline falx: normal Cavum septi pellucidi: normal Cerebellum: normal Cisterna magna: normal Head / Neck Vermis: Normal but not required for a standard anatomy exam Neck: Normal but not required for a standard anatomy exam Nuchal fold: Normal but not required for a standard anatomy exam Lips: normal Profile: Normal but not required for a standard anatomy exam Nose: Normal but not required for a standard anatomy exam Face Maxilla: Normal but not required for a standard anatomy exam Mandible: Normal but not required for a standard anatomy exam Orbits: Normal but not required for a standard anatomy exam Lens: Normal but not required for a standard anatomy exam 4-chamber view: normal RVOT view: normal LVOT view: normal 3-vessel view: normal 6-fhcduc-kcibpum view: normal Heart / Thorax Situs: situs solitus (normal) Aortic arch view: Normal but not required for a standard anatomy exam SVC: Normal but not required for a standard anatomy exam IVC: Normal but not required for a standard anatomy exam Cardiac axis: normal Rt lung: Normal but not required for a standard anatomy exam Lt lung: Normal but not required for a standard anatomy exam Diaphragm: Normal but not required for a standard anatomy exam Cord insertion: normal Stomach: normal Kidneys: normal Bladder: normal Genitals: normal Abdomen Abdom. wall: normal Cervical spine: normal Thoracic spine: normal Lumbar spine: normal Sacral spine: normal Arms: normal Legs: normal Rt upper arm: normal Rt forearm: normal Rt hand: normal Rt fingers: normal Lt upper arm: normal Lt forearm: normal Lt hand: normal Lt fingers: normal Rt upper leg: normal Rt lower leg: normal Rt foot: normal Lt upper leg: normal Lt lower leg: normal Lt foot: normal Gender: Unspecified Wants to know sex: no Maternal Structures Uterus / Cervix Uterus: Visualized Cervix: Visualized Approach: Transabdominal Cervical length 36.4 mm Other: Patient declined transvaginal ultrasound for cervical length. Ovaries / Tubes / Adnexa Rt ovary: Not visualized Lt ovary: Visualized Performed By: Lisa Vallecillo RDMS, RVT Read By: Jenifer Pickard M.D. MATERNAL MEDICINE [facility] Radiology Study observation (narrative) [facility] 03-13-2024 CNPN Telephone (OBGYWM) LYNETTE BARRIENTOS ([id number]) 1995 F Date Time Provider Department 03/13/24 BEATA DAHL During your visit today, we recorded the following information about you: Beata Dahl MD 03/13/2024 11:38 AM Signed Nausea associated with .Requesting Zofran Allergies As of Date: 03/13/2024 (No Known Allergies) Date Reviewed: 03/10/2024 Reviewed by: Ramona Musa MA - Fully Assessed Primary Visit Diagnosis:Nausea and vomiting in [O21.9] Order(s):ondansetron (ZOFRAN) 4 mg tabletTake 1 tablet by mouth every 8 hours as needed for nausea/vomiting.Disp: 40 tabletRfl: 1 Prescriptions as of 03/13/2024 - ondansetron (ZOFRAN) 4 mg tablet Take 1 tablet by mouth every 8 hours as needed for nausea/vomiting. - aspirin, enteric coated (ECOTRIN LOW STRENGTH) 81 mg EC tablet Take 1 tablet by mouth once daily. - 25/iron fum/folic/dha (-1 ORAL) Take 1 tablet by mouth once daily. - cholecalciferol (VITAMIN D3) 1,000 unit tab tablet Take 1 tablet by mouth once daily. 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 Encounter Status:Closed by BEATA DAHL on 03/13/24 [facility] LAB TEST Normal [facility] Comment on above: Order Comment: LAV W [id number] HEMOGLOBIN CASCADE WB/RF Result Comment: TEST RESULTS LIMITS Hgb Fractionation [place] Hgb Fractionation by CE: Hgb F 0.0 % 0.0-2.0 Hgb A 97.0 % 96.4-98.8 Hgb A2 3.0 % 1.8-3.2 Hgb S 0.0 % 0.0 Interpretation: Normal hemoglobin present; no hemoglobin variant or beta thalassemia identified. Note: Alpha thalassemia may not be detected by the Hgb Fractionation [place] panel. If alpha thalassemia is suspected, [facility] offers Alpha-Thalassemia DNA Analysis (#[id number]). TESTING PERFORMED AT [facility]. ORIGINAL REPORT ON FILE IN LAB CONTAINS ADDITIONAL TEST SITE INFORMATION. Performed By: #### L 506.0400, L801.1543, L501.88982, L501.9985, L3890.6005, L509.4005, L801.1541, L509.8000, L3890.6300, L501.9520, L100.0500, BTS, L506.1000, L3890.6100 #### [facility] [address] [place], [place], [address] [facility] 02-14-2024 [facility] Telephone (OBGYWM) LYNETTE BARRIENTOS ([id number]) 1995 F Date Time Provider Department 02/14/24 MALIA ROMERO During your visit today, we recorded the following information about you: Adelina Freeman RN 02/14/2024 8:42 AM Signed Please file NT u/s order for today's appt. Adelina Freeman RN Allergies As of Date: 02/14/2024 (No Known Allergies) Date Reviewed: 01/21/2024 Reviewed by: Grecia Gaspar LPN - Fully Assessed Reason for Visit: Orders [681] Primary Visit Diagnosis:Supervision of other normal , antepartum [Z34.80] Other Visit Diagnosis:13 weeks gestation of [Z3A.13] Order(s):NUCHAL TRANSLUCENCY WHI [[id number]] Order #: [id number]: 1 FUTURE Prescriptions as of 02/14/2024 - aspirin, enteric coated (ECOTRIN LOW STRENGTH) 81 mg EC tablet Take 1 tablet by mouth once daily. - 25/iron fum/folic/dha (-1 ORAL) Take 1 tablet by mouth once daily. - cholecalciferol (VITAMIN D3) 1,000 unit tab tablet Take 1 tablet by mouth once daily. Meds Comments as of 01/14/2023: No other supplements Problem List As Of Date 02/14/2024 Noted Resolved ACHILLES TENDINITIS [M76.60] 06/16/2008 RUQ pain [R10.11] 06/27/2015 Epigastric pain [R10.13] 06/27/2015 Vitamin D deficiency [E55.9] 12/16/2017 Well adult exam [Z00.00] 12/16/2017 01/07/2024 Encounter for supervision of normal first pregn*01/07/2024 Encounter Status:Closed by BEATA DAHL on 02/14/24 Normal [facility] nuchal translucency me asured by Nahomy 02-14-2024 Indication First trimester anatomic survey Impression 29 yo at 13w0d presenting for 1st trimester anatomy scan. Deferred aneuploidy screening. - Single, live, intrauterine . - Mabscott rump length measurement is consistent with the established gestational age. - No malformations visualized on a complete first trimester anatomic assessment. - The nuchal translucency measurement is 1.7 mm. - Not all structural malformations can be detected by ultrasound examination. Recommendations - An anatomic survey at 18-20 weeks given no identified risk factors. - Additional follow up as clinically indicated. Maternal Assessment Height 170 cm Height (ft) 5 ft Height (in) 7 in Physical Exam Initial weight (lb) 147 lb Initial BMI 23.02 kg/m Maternal assessment other: 1 Para Method Transabdominal ultrasound examination Torres . Number of fetuses: 1 Dating LMP on: 11/15/2023 GA by LMP 13 w + 0 d KILEY by LMP: 08/21/2024 GA by prior assessment 13 w + 0 d KILEY by prior assessment: 08/21/2024 Ultrasound examination on: 02/14/2024 GA by U/S based upon: CRL GA by U/S 13 w + 4 d KILEY by U/S: 08/17/2024 Assigned: based on stated KILEY, selected on 02/14/2024 Assigned GA 13 w + 0 d Assigned KILEY: 08/21/2024 General Evaluation Cardiac activity present Placenta: anterior Cord vessels: 3 vessel cord Amniotic fluid: normal amount Biometry Standard FHR 147 bpm CRL 74.4 mm 13w 4d 81% Hadlock NT 1.70 mm First Trimester Anatomy Calvarium: normal Falx cerebri: normal Choroid plexus: normal Profile: normal Nasal bone: normal Retronasal triangle: normal Maxilla: normal Mandible: normal Nuchal translucency: Unremarkable Situs: normal Cardiac position: normal Cardiac axis: normal 4-chamber view: normal 4-chamber view with color: normal 5-fwvpep-olcfvtr view: normal Abdominal cord insertion: normal Stomach: normal Kidneys: normal Bladder: normal Color doppler of perivesical umbilical arteries: normal Vertebral alignment: normal Arms: normal Hands: normal Legs: normal Feet: normal Maternal Structures Uterus / Cervix Uterus: Visualized Uterus length 117 mm Uterus width 99 mm Uterus height 94 mm Uterus Vol 571.5 cm Ovaries / Tubes / Adnexa Rt ovary: Not visualized Lt ovary: Visualized Lt ovary D1 37 mm Lt ovary D2 23 mm Lt ovary D3 14 mm Lt ovary Vol 6.1 cm Performed By: Lisa Vallecillo RDMS, RVT Read By: Xiomara Jackman MD. MATERNAL MEDICINE [facility] Radiology Study observation (narrative) [facility] Miscellaneous Lab Procedure 2on 02-14-2024 [facility] LAB TEST 2 Normal [facility] Comment on above: Order Comment: [id number] P24 AG/AB REFLEX Result Comment: TEST RESULTS LIMITS HIV Ab/p24 Ag with Reflex HIV Ab/p24 Ag Screen Non Reactive Non Reactive HIV-1/HIV-2 antibodies and HIV-1 p24 antigen were NOT detected. There is no laboratory evidence of HIV infection. HIV Negative TESTING PERFORMED AT [facility]. ORIGINAL REPORT ON FILE IN LAB CONTAINS ADDITIONAL TEST SITE INFORMATION. Performed By: #### L 506.0400, L801.1543, L501.52230, L501.9985, L3890.6005, L509.4005, L801.1541, L509.8000, L3890.6300, L501.9520, L100.0500, BTS, L506.1000, L3890.6100 #### [facility] [address] [place], [place], [id number] (873) CBC-Complete Blood Cnt No Di ffon 02-11-2024 Erythrocyte distribution width (RBC) [Ratio] 12.9 % Normal 11.6-14.6 [facility] Comment on above: Performed By: #### L 506.0400, L801.1543, L501.27586, L501.9985, L3890.6005, L509.4005, L801.1541, L509.8000, L3890.6300, L501.9520, L100.0500, BTS, L506.1000, L3890.6100 #### [facility] [address] [place], [address] Hematocrit (Bld) [Volume fraction] 39.7 % Normal 37-47 [facility] Comment on above: Performed By: #### L 506.0400, L801.1543, L501.74469, L501.9985, L3890.6005, L509.4005, L801.1541, L509.8000, L3890.6300, L501.9520, L100.0500, BTS, L506.1000, L3890.6100 #### [facility] [address] [place], [place], [id number] (962) Hemoglobin (Bld) [Mass/Vol] 13.4 g/dL Normal 12.0-15.0 [facility] Comment on above: Performed By: #### L 506.0400, L801.1543, L501.96575, L501.9985, L3890.6005, L509.4005, L801.1541, L509.8000, L3890.6300, L501.9520, L100.0500, BTS, L506.1000, L3890.6100 #### [facility] [address] [facility] [place], [address] MCH (RBC) [Entitic mass] 28.4 pg Normal 27.0-32.0 [facility] Comment on above: Performed By: #### L 506.0400, L801.1543, L501.18837, L501.9985, L3890.6005, L509.4005, L801.1541, L509.8000, L3890.6300, L501.9520, L100.0500, BTS, L506.1000, L3890.6100 #### [facility] [address] [facility] [place], [address] MCHC (RBC) [Mass/Vol] 33.8 g/dL Normal 32-36 [facility] Comment on above: Performed By: #### L 506.0400, L801.1543, L501.61246, L501.9985, L3890.6005, L509.4005, L801.1541, L509.8000, L3890.6300, L501.9520, L100.0500, BTS, L506.1000, L3890.6100 #### [facility] [address] [facility], [address] MCV (RBC) [Entitic vol] 84.1 fL Normal 81-99 [facility] Comment on above: Performed By: #### L 506.0400, L801.1543, L501.32412, L501.9985, L3890.6005, L509.4005, L801.1541, L509.8000, L3890.6300, L501.9520, L100.0500, BTS, L506.1000, L3890.6100 #### [facility] [address] [place], [address] Platelet mean volume (Bld) [Entitic vol] 9.6 fL Normal 6.2-12.0 [facility] Comment on above: Performed By: #### L 506.0400, L801.1543, L501.82164, L501.9985, L3890.6005, L509.4005, L801.1541, L509.8000, L3890.6300, L501.9520, L100.0500, BTS, L506.1000, L3890.6100 #### [facility] [address] [place], [address] Platelets (Bld) [#/Vol] 290 10*3/uL Normal 150-450 [facility] Comment on above: Performed By: #### L 506.0400, L801.1543, L501.48984, L501.9985, L3890.6005, L509.4005, L801.1541, L509.8000, L3890.6300, L501.9520, L100.0500, BTS, L506.1000, L3890.6100 #### [facility] [address] [place], [address] RBC (Bld) [#/Vol] 4.72 10*6/uL Normal 4.2-5.4 [facility] Comment on above: Performed By: #### L 506.0400, L801.1543, L501.04464, L501.9985, L3890.6005, L509.4005, L801.1541, L509.8000, L3890.6300, L501.9520, L100.0500, BTS, L506.1000, L3890.6100 #### [facility] [address] [place], [address] RDW SD 39.5 fl Normal 35.1-43.9 [facility] Comment on above: Performed By: #### L 506.0400, L801.1543, L501.31564, L501.9985, L3890.6005, L509.4005, L801.1541, L509.8000, L3890.6300, L501.9520, L100.0500, BTS, L506.1000, L3890.6100 #### [facility] [address] [place], [place], [address] WBC (Bld) [#/Vol] 6.3 10*3/uL Normal 4.4-11.0 [facility] Comment on above: Performed By: #### L 506.0400, L801.1543, L501.15063, L501.9985, L3890.6005, L509.4005, L801.1541, L509.8000, L3890.6300, L501.9520, L100.0500, BTS, L506.1000, L3890.6100 #### [facility] [address] [place], [place], [id number] [facility] Telephone (INTMWS) LYNETTE BARRIENTOS ([id number]) 1995 F Date Time Provider Department 02/11/24 JESSA MACKENZIE INTMWS During your visit today, we recorded the following information about you: Jessa Mackenzie MD 02/11/2024 7:12 PM Signed Paged to [facility] about critical value. Preliminary HIV + and will be getting conformation Forwarding to PCP to address Lorenzo Del Toro DO 02/12/2024 6:43 AM Signed Please obtain these lab results and forward to OBGYN DO [place] Tay Sue E, LPN 02/12/2024 8:55 AM Signed Results scanned to patient chart. Will forward message to cloth brushing and sueding supervisor provider, per PCP request. ASH Shaw Jessica, APRN.CNM 02/12/2024 9:06 AM Signed Can you please get confirmation screen from lab or see when will be expected. Thank you, BALDO Castillo Jennifer, RN 02/12/2024 9:48 AM Signed Spoke with [facility] lab. This will take several days with the holiday. It should be sent out to [facility] today. PETEY Alvarado Jennifer, RN 02/17/2024 2:18 PM Signed View External Labs - Chemistry [ID [id number]] Malia Romero APRN.CNM 02/17/2024 3:45 PM Signed HIV negative. Please update record. BALDO Castillo Tara, RN 02/17/2024 3:56 PM Signed Copy of episode sent to [facility][NOTE 3] including external lab results attached below. 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 - 25/iron fum/folic/dha (-1 ORAL) Take 1 tablet by mouth once daily. - cholecalciferol (VITAMIN D3) 1,000 unit tab tablet Take 1 tablet by mouth once daily. Meds Comments as of 01/14/2023: No other supplements Problem List As Of Date 02/11/2024 Noted Resolved ACHILLES TENDINITIS [M76.60] 06/16/2008 RUQ pain [R10.11] 06/27/2015 Epigastric pain [R10.13] 06/27/2015 Vitamin D deficiency [E55.9] 12/16/2017 Well adult exam [Z00.00] 12/16/2017 01/07/2024 Encounter for supervision of normal first pregn*01/07/2024 Encounter Status:Closed by YANDEL SANTIAGO on 02/17/24 [facility] 02-11-2024 Free T3 [Mass/Vol] 2.3 pg/mL Normal 2.18-3.98 [facility] Comment on above: Performed By: #### L 506.0400, L801.1543, L501.19363, L501.9985, L3890.6005, L509.4005, L801.1541, L509.8000, L3890.6300, L501.9520, L100.0500, BTS, L506.1000, L3890.6100 #### [facility] [address] [place], [place], [id number] HIV - WCHon 02-11-2024 HIV Preliminary Reactive Abnormal Nonreactive [facility] Comment on above: Result Comment: Crit ical Result(s) Called at: 18:58:45 02/11/2024 by: Shefali Bull to Dr Mackenzie. Results read back by same. SEND OUT PRESUMPTIVE REACTIVE SPECIMENS TO [facility] TEST NUMBER [id number] FOR CONFIRMATION. Performed By: #### L 506.0400, L801.1543, L501.49553, L501.9985, L3890.6005, L509.4005, L801.1541, L509.8000, L3890.6300, L501.9520, L100.0500, BTS, L506.1000, L3890.6100 #### [facility] [address] [place], [place], [id number] Hemoglobin A1con 02-11-2024 HbA1c (Bld) [Mass fraction] 5.3 % Normal 3.8-5.6 [facility] Comment on above: Result Comment: Norm al < 5.7 % Prediabetic 5.7 - 6.4 % Diabetic >or= 6.5 % Please note range changes. Performed By: #### L 506.0400, L801.1543, L501.79040, L501.9985, L3890.6005, L509.4005, L801.1541, L509.8000, L3890.6300, L501.9520, L100.0500, BTS, L506.1000, L3890.6100 #### [facility] [address] [place], [place], [id number] Hepatitis B Surface Antigeno n 02-11-2024 HEP B Surf Ag Non-Reactive Normal Nonreactive [facility] Comment on above: Performed By: #### L 506.0400, L801.1543, L501.03316, L501.9985, L3890.6005, L509.4005, L801.1541, L509.8000, L3890.6300, L501.9520, L100.0500, BTS, L506.1000, L3890.6100 #### [facility] [address] [facility], [address] Hepatitis C Antibodyon 02-10 Hepatitis C AB Non-Reactive Normal Nonreactive [facility] Comment on above: Result Comment: Non Reactive: < 0.8 Equivocal: >/= 0.8 to < 1.0 Reactive: >/= 1.0 The CDC requires that a reactive/equivocal HCV antibody result be sent out for confirmation. HCV Quant by PCR testing. Performed By: #### L 506.0400, L801.1543, L501.42909, L501.9985, L3890.6005, L509.4005, L801.1541, L509.8000, L3890.6300, L501.9520, L100.0500, BTS, L506.1000, L3890.6100 #### [facility] [address] [place], [address] L509.8000on 02-11-2024 Syphilis Abs Non-Reactive Normal [facility] Comment on above: Performed By: #### L 506.0400, L801.1543, L501.78769, L501.9985, L3890.6005, L509.4005, L801.1541, L509.8000, L3890.6300, L501.9520, L100.0500, BTS, L506.1000, L3890.6100 #### [facility] [address] [place], [address] Rubella IgGon 02-11-2024 Rubella IgG Reactive Normal Nonreactive [facility] Comment on above: Result Comment: Anti body Results Interpretation of Immune Status Non Reactive Presumed Non-Immune Equivocal Equivocal Reactive Presumed Immune Performed By: #### L 506.0400, L801.1543, L501.52130, L501.9985, L3890.6005, L509.4005, L801.1541, L509.8000, L3890.6300, L501.9520, L100.0500, BTS, L506.1000, L3890.6100 #### [facility] [address] [place], [address] T4 Free Directon 02-11-2024 T4 FREE DIRECT 2.29 ng/dL High 0.76-1.46 [facility] Comment on above: Performed By: #### L 506.0400, L801.1543, L501.73549, L501.9985, L3890.6005, L509.4005, L801.1541, L509.8000, L3890.6300, L501.9520, L100.0500, BTS, L506.1000, L3890.6100 #### [facility] [address] [place], [address] Thyroid Stim Hormone (TSH)on 02-11-2024 TSH 2.290 uIU/mL Normal 0.358-3.740 [facility] Comment on above: Performed By: #### L 506.0400, L801.1543, L501.24014, L501.9985, L3890.6005, L509.4005, L801.1541, L509.8000, L3890.6300, L501.9520, L100.0500, BTS, L506.1000, L3890.6100 #### [facility] [address] [place], [place], [id number] Type AND Screenon 02-11-2024 ABO and Rh group Nom (Bld) Blood group A Rh(D) negative Normal [facility] Comment on above: Order Comment: PN Performed By: #### L 506.0400, L801.1543, L501.69441, L501.9985, L3890.6005, L509.4005, L801.1541, L509.8000, L3890.6300, L501.9520, L100.0500, BTS, L506.1000, L3890.6100 #### [facility] [address] [place], [place], [id number] Vitamin D,25 Hydroxyon 02-10 Vitamin D 25-OH 38.5 ng/mL Normal [facility] Comment on above: Result Comment: Jeanne min D 25(OH) Status Range Deficiency <20 ng/mL (50nmol/L) Insufficiency 20 - 30 ng/mL (50 - 75 nmol/L) Sufficiency 30 - 100 ng/mL (75 - 250 nmol/L) Toxicity >100 ng/mL (>250 nmol/L) Performed By: #### L 506.0400, L801.1543, L501.19156, L501.9985, L3890.6005, L509.4005, L801.1541, L509.8000, L3890.6300, L501.9520, L100.0500, BTS, L506.1000, L3890.6100 #### [facility] [address] [place], [address] OVon 01-21-2024 [facility] Office Visit (FAMPWS ) LYNETTE BARRIENTOS ([id number]) 1995 F Date Time Provider Department 01/21/24 1:00 PM [facility] During your visit today, we recorded the following information about you: Temperature Pulse Respiration Blood pressure 97.4 degrees 88/minute 12/minute 110/70 Weight Height 66 kg 1.69 m Lorenzo Del Toro DO 01/21/2024 1:58 PM Signed CC: Lynette Barrientos is a 29 year old female who presents to the office for physical HPI: She is overall doing well She was engaged and in the last year. She is 9 weeks 4 days at this time with her first child. She is very excited to be a mother and denies any new concerns. She is taking vitamins. No recent issues. PAST MEDICAL HISTORY Diagnosis Date PMH - PAST MEDICAL HISTORY OF 10/20/2001 normal color vision 10/2001 PAST SURGICAL HISTORY Procedure Laterality Date EXTRACTION, ERUPTED TOOTH OR EXPOSED ROOT (ELEVATION AND/OR FORCEPS REMOVAL) 2013 PAST SURGICAL HISTORY OF wisdom teeth Social History: Social History Tobacco Use Smoking status: Never Smokeless tobacco: Never Vaping Use Vaping status: Never Used Substance Use Topics Alcohol use: Yes Comment: socially/rare Drug use: No FAMILY HISTORY Problem Relation Age of Onset Hypertension Father other (Other) Father retinopathy Hyperlipidemia Father Asthma Sister No Known Problems Brother Cancer Maternal Grandfather hodgkins and prostate other (Pulmonary Fibrosis) Paternal Grandmother Diabetes Paternal Grandfather Heart Paternal Grandfather Asthma Maternal Uncle Current Outpatient prescriptions: aspirin, enteric coated (ECOTRIN LOW STRENGTH) 81 mg EC tablet Take 1 tablet by mouth once daily. 25/iron fum/folic/dha (-1 ORAL) Take 1 tablet by mouth once daily. cholecalciferol (VITAMIN D3) 1,000 unit tab tablet Take 1 tablet by mouth once daily. Allergies: ALLERGIES No Known Allergies ROS: See HIP PE: 01/21/24 1309 BP: 110/70 Pulse: 88 Resp: 12 Temp: 36.3 ?C (97.4 ?F) TempSrc: Temporal Weight: 66 kg (145 lb 8.1 oz) Height: 169 cm (5' 6.54) Gen: AANDO, NAD, non-toxic appearing, Pleasant, cooperative HEENT: NT/AC, PERRLA, EOMs intact b/l, nares clear and patent b/l, pharynx without erythema, exudate or lesions. MMM, Uvula midline. EACs without erythema or debris. TMs pearly floyd with intact landmarks b/l. Neck: supple, No cervical LAD, no thyromegaly, no carotid bruits CV: RRR, normal S1 and S2, no murmurs, no gallops, no rubs, Pulses 2+ and symmetric in UE and LE b/l Lungs: normal respiratory effort, CTA b/l, no wheezing or rhonchi or rales Abd: soft, NT, ND, +BS, no hepatosplenomegaly MS: FROM all 4 extremities Neuro: CN II-XII intact b/l, strength 5/5 b/l UE and LE, DTRs 2/4 UE and LE, sensation intact. Skin: warm, dry, intact, No rashes or lesions on exposed skin. No edema, normal pulses ASSESSMENT/PLAN: 1. Well adult exam - ICD9: V70.0, ICD10: Z00.00 (primary diagnosis) - Counseled on healthy diet and regular exercise - VITAMIN D 25 HYDROXY - THYROID STIMULATING HORMONE - T4 FREE/FREE THYROXINE - T3, FREE 2. 9 weeks gestation of - ICD9: V22.2, ICD10: Z3A.09 Continue follow up with OBGYN Lorenzo Del Toro DO To ER if develops chest pain, shortness of breath, or severe worsening of symptoms. Discussed risks, benefits, alternatives, and potential side effects of medications. Patient expressed understanding and agreed with the plan. Lorenzo Del Toro DO [address] [place] [address] Allergies As of Date: 01/21/2024 (No Known Allergies) Date Reviewed: 01/21/2024 Reviewed by: Grecia Gaspar LPN - Fully Assessed Reason for Visit: Yearly Exam [187] Primary Visit Diagnosis:Well adult exam [Z00.00] Other Visit Diagnosis:9 weeks gestation of [Z3A.09] Order(s):VITAMIN D 25 HYDROXY [SQVITD] Order #: [id number] FUTURE THYROID STIMULATING HORMONE [SQTSH] Order #: [id number] FUTURE T4 FREE/FREE THYROXINE [SQFT4] Order #: [id number] FUTURE T3, FREE [SQFREET3] Order #: [id number] FUTURE Prescriptions as of 01/21/2024 - aspirin, enteric coated (ECOTRIN LOW STRENGTH) 81 mg EC tablet Take 1 tablet by mouth once daily. - 25/iron fum/folic/dha (-1 ORAL) Take 1 tablet by mouth once daily. - cholecalciferol (VITAMIN D3) 1,000 unit tab tablet Take 1 tablet by mouth once daily. Meds Comments as of 01/14/2023: No other supplements Problem List As Of Date 01/21/2024 Noted Resolved ACHILLES TENDINITIS [M76.60] 06/16/2008 RUQ pain [R10.11] 06/27/2015 Epigastric pain [R10.13] 06/27/2015 Vitamin D deficiency [E55.9] 12/16/2017 Well adult exam [Z00.00] 12/16/2017 01/07/2024 Encounter for supervision of normal first pregn*01/07/2024 Encounte (more content not included)... Normal [facility] Bacteria Ur Culton Bacteria identified Cx Nom (U) ORGANISM ID: 1 <10,000 CFU/ml Mixed microbiota No further workup Normal [facility] Comment on above: Performed By: #### 6 30-4 ####[facility] LABCLIA [id number] [place] [address] [place] C. trachomatis+N. gonorrhoea e DNA SRINIVAS+probe Ql (Unsp spec)on 01-07-2024 C. trachomatis rRNA SRINIVAS+probe Ql (Unsp spec) Negative Normal Negative for Chlamydia trachomatis by amplificaton [facility] Comment on above: Order Comment: Speci men Type: SWABOrdering Facility: [facility] Address: [address] [place] [address] Performed By: #### 3 6902-5 ####[facility] LABCLIA [id number] [address] [place] N. 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 Confirmation of intrauterine Impression Single intrauterine gestational sac, cardiac activity is visualized, FHR 161 bpm CRL is appropriate for clinical dates, corresponding to KILEY 08/21/24 Recommendations Follow up for NT scan if desired Method Transabdominal and transvaginal ultrasound examination Torres . Number of embryos: 1 Dating LMP on: 11/15/2023 GA by LMP 7 w + 4 d KILEY by LMP: 08/21/2024 Ultrasound examination on: 01/07/2024 GA by U/S based upon: CRL GA by U/S 7 w + 4 d KILEY by U/S: 08/21/2024 Assigned: based on the LMP, selected on 01/07/2024 Assigned GA 7 w + 4 d Assigned KILEY: 08/21/2024 Biometry Standard FHR 161 bpm CRL 13.4 mm 7w 4d 93% [facility]lock Assessment Gestational sac: visualized Location: intrauterine Yolk sac: visualized Embryo: visualized CRL 13.4 mm 7w 4d 93% [place] Cardiac activity: present FHR 161 bpm General Evaluation Cardiac activity present. FHR 161 bpm Performed By: Malia Romero CNM Read By: Malia Romero CNM MATERNAL MEDICINE [facility] Radiology Study observation (narrative) [facility] Absolute lymphocyte counton 06-22-2021 Lymphocytes Auto (Unsp spec) [#/Vol] 0.73 10*3/uL 0.83-4.51 [facility] Work Phone: Basophil percentageon 2021 Basophil percentage 0-5 SEEN /hpf [facility] Work Phone: Basophils/100 WBC (Bld) 0.5 % 0-1 [facility] Work Phone: Bilirubin [Mass/Vol] 0.30 mg/dL 0.20-1.00 [facility] Work Phone: Comment on above: For patients on eltr ombopag therapy, use of Dimension [place] TBIL is not recommended. Chloride [Moles/Vol] 109 mmol/L 98-107 [facility] Work Phone: Eosinophils/100 WBC (Bld) 0.5 % 0-5 [facility] Work Phone: Glucose [Mass/Vol] 96 mg/dL 74-106 [facility] Work Phone: Neutrophils (Bld) [#/Vol] 2.9 10*3/uL 2.0-7.7 [facility] Work Phone: Neutrophils/100 WBC (Bld) 71.4 % 47-70 [facility] Work Phone: Potassium [Moles/Vol] 3.8 mmol/L 3.5-5.1 [facility] Work Phone: Protein [Mass/Vol] 8.1 g/dL 6.4-8.2 [facility] Work Phone: Sodium [Moles/Vol] 136 mmol/L 136-145 [facility] Work Phone: WBC (Bld) [#/Vol] 4.0 10*3/uL 4.4-11.0 [facility] Work Phone: Beta hCG serum qualon 2021 Beta HCG ( test) Ql Negative [facility] Work Phone: Bilirubin Test strip Ql (U)o n 06-22-2021 Bilirubin Ql (U) 1 mg/dL Negative [facility] Work Phone: [phone] Comment on above: COLOR OF URINE MAY A FFECT DIPSTICK RESULTS. Blood erythrocytes count (nu mber/volume)on 06-22-2021 RBC (Bld) [#/Vol] 5.28 10*6/uL 4.2-5.4 [facility] Work Phone: Blood hemoglobin measurement (mass/volume)on 06-22-2021 Hemoglobin (Bld) [Mass/Vol] 15.1 g/dL 12.0-15.0 [facility] Work Phone: Blood lymphocytes/100 leukoc yteson 06-22-2021 Lymphocytes/100 WBC (Bld) 18.2 % 19-41 [facility] Work Phone: Blood monocytes/100 leukocyt eson 06-22-2021 Monocytes/100 WBC (Bld) 9.2 % 0-10 [facility] Work Phone: Blood platelet mean volumeon 06-22-2021 Platelet mean volume (Bld) [Entitic vol] 9.3 fL 6.2-12.0 [facility] Work Phone: [phone] Calcium oxalate crystals det ection in urine sediment by light microscopyon 06-22-2021 Calcium oxalate crystals LM Ql (Urine sed) 1+ /hpf [facility] Work Phone: [phone] Determination of erythrocyte mean corpuscular volume (MCV)on 06-22-2021 MCV (RBC) [Entitic vol] 83.0 fL 81-99 [facility] Work Phone: [phone] Hematocrit Auto (Bld) [Volum e fraction]on 06-22-2021 Hematocrit (Bld) [Volume fraction] 43.8 % 37-47 [facility] Work Phone: [phone] Ketones Test strip Ql (U)on 06-22-2021 Ketones Ql (U) 50 mg/dl Negative [facility] Work Phone: Laboratory - Chemistry and C hemistry - challengeon 06-22-2021 ALP [Catalytic activity/Vol] 65 U/L 45-117 [facility] Work Phone: [phone] ALT [Catalytic activity/Vol] 20 U/L 13-56 [facility] Work Phone: [phone] CO2 [Moles/Vol] 22.0 mmol/L 21.0-32.0 [facility] Work Phone: [phone] Globulin (S) [Mass/Vol] 3.9 g/dL 2.2-4.2 [facility] Work Phone: [phone] Lipase [Catalytic activity/Vol] 91 U/L 73-393 [facility] Work Phone: [phone] Urea nitrogen/Creatinine [Mass ratio] 15.9 mg/mg 10-20 [facility] Work Phone: [phone] Laboratory - Hematology and Cell countson 06-22-2021 Erythrocyte distribution width (RBC) [Entitic vol] 37.3 fL 35.1-43.9 [facility] Work Phone: [phone] Erythrocyte distribution width (RBC) [Ratio] 12.2 % 11.6-14.6 [facility] Work Phone: [phone] Immature granulocytes/100 WBC (Bld) 0.200 % 0.0-0.9 [facility] Work Phone: [phone] Comment on above: IG% - Immature Granu locytes (promyelocytes, myelocytes and metamyelocytes) > 1% indicates that a LEFT SHIFT is Present. MCH (RBC) [Entitic mass] 28.6 pg 27.0-32.0 [facility] Work Phone: [phone] Nucleated RBC/100 WBC (Bld) [Ratio] 0 % 0-5 [facility] Work Phone: [phone] MCHC Auto (RBC) [Mass/Vol]on 06-22-2021 MCHC (RBC) [Mass/Vol] 34.5 g/dL 32-36 [facility] Work Phone: [phone] Mucus LM Ql (Urine sed)on Mucus Ql (Urine sed) 0 SEEN /hpf [facility] Work Phone: Nitrite Test strip Ql (U)on 06-22-2021 Nitrite Ql (U) Negative Negative [facility] Work Phone: No Panel Informationon 06-22 Estimated Creatinine Clearance Calc 94.21 ml/min [facility] Work Phone: Estimated GFR (MDRD) Amer 99 mL/min >60 [facility] Work Phone: Comment on above: GFR Calc Estimated GFR (MDRD) Non-Af Amer 82 mL/min >60 [facility] Work Phone: Comment on above: Non- GFR Calc Platelets bldon 06-22-2021 Platelets (Bld) [#/Vol] 283 10*3/uL 150-450 [facility] Work Phone: [phone] Protein Test strip Ql (U)on 06-22-2021 Protein Ql (U) 30 mg/dl Negative [facility] Work Phone: [phone] Serum or plasma albumin leta urement (mass/volume)on 06-22-2021 Albumin [Mass/Vol] 4.2 g/dL 3.2-5.0 [facility] Work Phone: [phone] Serum or plasma albumin/glob ulin mass ratioon 06-22-2021 Albumin/Globulin [Mass ratio] 1.1 {ratio} 0.9-2.4 [facility] Work Phone: [phone] Serum or plasma calcium leta urement (mass/volume)on 06-22-2021 Calcium [Mass/Vol] 9.4 mg/dL 8.5-10.1 [facility] Work Phone: [phone] Serum or plasma creatinine m easurement (mass/volume)on 06-22-2021 Creatinine [Mass/Vol] 0.88 mg/dL 0.55-1.02 [facility] Work Phone: Comment on above: The validity of the calculated GFR & GFRAA in patients over 70 years has not been determined. Clinical correlation is essential. Serum or plasma urea nitroge n measurement (mass/volume)on 06-22-2021 Urea nitrogen [Mass/Vol] 14 mg/dL 7-18 [facility] Work Phone: Squamous epithelial cells de tection in urine sediment by light microscopyon 06-22-2021 Epithelial cells.squamous LM Ql (Urine sed) 5-10 SEEN /hpf [facility] Work Phone: Thin prep Papanicolaou smear with manual screeningon 06-22-2021 Thin prep Papanicolaou smear with manual screening 15 U/L 15-37 [facility] Work Phone: Thin prep Papanicolaou smear with manual screening 5 5-15 [facility] Work Phone: Urine blood detectionon 04-0 RBC Ql (U) 10 /ul Negative [facility] Work Phone: RBC Ql (U) 0-5 SEEN /hpf [facility] Work Phone: Urine clarityon 06-22-2021 Clarity (U) Sl. Cloudy Clear [facility] Work Phone: Urine color determinationon 06-22-2021 Color (U) Cailin Yellow [facility] Work Phone: Urine glucose detectionon Glucose Ql (U) Normal mg/dl Normal [facility] Work Phone: Urine leukocyte esterase det ection by dipstickon 06-22-2021 Leukocyte esterase Test strip Ql (U) Negative Negative [facility] Work Phone: Urine pHon 06-22-2021 pH (U) 5.0 [pH] [facility] Work Phone: Urine sediment bacteria coun t by microscopy (number/high power field)on 06-22-2021 Bacteria LM.HPF (Urine sed) [#/Area] 2 /[HPF] None Seen [facility] Work Phone: Urine specific gravity measu rementon 06-22-2021 Specific gravity (U) [Rel density] 1.030 [facility] Work Phone: Urobilinogen Auto test strip Ql (U)on 06-22-2021 Urobilinogen Ql (U) Normal mg/dl Normal [facility] Work Phone: Laboratory - Microbiology an d Antimicrobial susceptibilityon 03-14-2021 SARS-CoV-2 (COVID-19) RNA SRINIVAS+probe Ql (Unsp spec) Not detected [facility] Work Phone: Vital Signs Date Time Vital Sign Value Performing Clinician Facility 08-11-2024 08:04-0400 Body mass index (BMI) [Ratio] 28.91 kg/m2 April Yates MD Work Phone: [facility] 08-11-2024 08:04-0400 Body weight 82.56 kg April Yates MD Work Phone: [facility] 08-11-2024 08:04-0400 Diastolic blood pressure 62 mm[Hg] April Yates MD Work Phone: [facility] 08-11-2024 08:04-0400 Systolic blood pressure 110 mm[Hg] April Yates MD Work Phone: [facility] 07-28-2024 15:57-0400 Body mass index (BMI) [Ratio] 27 kg/m2 Beata Dahl MD Work Phone: [facility] 07-28-2024 15:57-0400 Body weight 77.11 kg Beata Dahl MD Work Phone: [facility] 07-28-2024 15:57-0400 Diastolic blood pressure 62 mm[Hg] Beata Dahl MD Work Phone: [facility] 07-28-2024 15:57-0400 Systolic blood pressure 120 mm[Hg] Beata Dahl MD Work Phone: [facility] 07-20-2024 14:36-0400 Body mass index (BMI) [Ratio] 27.32 kg/m2 Malia Romero APRN.CNM Work Phone: [facility] 07-20-2024 14:36-0400 Body weight 78.02 kg Malia Romero BILLING ANALYST.CNM Work Phone: [facility] 07-20-2024 14:36-0400 Diastolic blood pressure 60 mm[Hg] Malia Romero BILLING ANALYST.CNM Work Phone: [facility] 07-20-2024 14:36-0400 Systolic blood pressure 108 mm[Hg] Malia Romero BILLING ANALYST.CNM Work Phone: [facility] 07-06-2024 16:24-0400 Body mass index (BMI) [Ratio] 26.52 kg/m2 Taylor Plotts BILLING ANALYST.CNM Work Phone: [facility] 07-06-2024 16:24-0400 Body weight 75.75 kg Taylor Chiuts BILLING ANALYST.CNM Work Phone: [facility] 07-06-2024 16:24-0400 Diastolic blood pressure 68 mm[Hg] Taylor Plotts BILLING ANALYST.CNM Work Phone: [facility] 07-06-2024 16:24-0400 Systolic blood pressure 114 mm[Hg] Taylor Plotts BILLING ANALYST.CNM Work Phone: [facility] 06-22-2024 15:50-0400 Body mass index (BMI) [Ratio] 26.55 kg/m2 Mary Shin MD Work Phone: [facility] 06-22-2024 15:50-0400 Body weight 75.84 kg Mary Shin MD Work Phone: [facility] 06-22-2024 15:50-0400 Diastolic blood pressure 60 mm[Hg] Mary Shin MD Work Phone: [facility] 06-22-2024 15:50-0400 Systolic blood pressure 108 mm[Hg] Mary Shin MD Work Phone: [facility] 06-09-2024 11:05-0400 Body mass index (BMI) [Ratio] 25.73 kg/m2 Beata Dahl MD Work Phone: [facility] 06-09-2024 11:05-0400 Body weight 73.48 kg Beata Dahl MD Work Phone: [facility] 06-09-2024 11:05-0400 Diastolic blood pressure 60 mm[Hg] Beata Dahl MD Work Phone: [facility] 06-09-2024 11:05-0400 Systolic blood pressure 100 mm[Hg] Beata Dahl MD Work Phone: [facility] 05-27-2024 10:48-0400 Body mass index (BMI) [Ratio] 25.57 kg/m2 Malia Romero BILLING ANALYST.CNM Work Phone: [facility] 05-27-2024 10:48-0400 Body weight 73.03 kg Malia Romero BILLING ANALYST.CNM Work Phone: [facility] 05-27-2024 10:48-0400 Diastolic blood pressure 62 mm[Hg] Malia Romero BILLING ANALYST.CNM Work Phone: [facility] 05-27-2024 10:48-0400 Systolic blood pressure 114 mm[Hg] Malia Romero BILLING ANALYST.CNM Work Phone: [facility] 05-01-2024 15:49-0500 Body mass index (BMI) [Ratio] 25.03 kg/m2 Beata Dahl MD Work Phone: [facility] 05-01-2024 15:49-0500 Body weight 71.49 kg Beata Dahl MD Work Phone: [facility] 05-01-2024 15:49-0500 Diastolic blood pressure 60 mm[Hg] Beata Dahl MD Work Phone: [facility] 05-01-2024 15:49-0500 Systolic blood pressure 120 mm[Hg] Beata Dahl MD Work Phone: [facility] 04-03-2024 09:13-0500 Body mass index (BMI) [Ratio] 24.65 kg/m2 Kevin Bradford MD Work Phone: [facility] 04-03-2024 09:13-0500 Body weight 70.4 kg Kevin Bradford MD Work Phone: [facility] 04-03-2024 09:13-0500 Diastolic blood pressure 70 mm[Hg] Kevin Bradford MD Work Phone: [facility] 04-03-2024 09:13-0500 Systolic blood pressure 116 mm[Hg] Kevin Bradford MD Work Phone: [facility] 03-10-2024 10:50-0500 Body mass index (BMI) [Ratio] 23.66 kg/m2 Mary Shin MD Work Phone: [facility] 03-10-2024 10:50-0500 Body weight 67.59 kg Mary Shin MD Work Phone: [facility] 03-10-2024 10:50-0500 Diastolic blood pressure 64 mm[Hg] Mary Shin MD Work Phone: [facility] 03-10-2024 10:50-0500 Systolic blood pressure 108 mm[Hg] Mary Shin MD Work Phone: [facility] 02-14-2024 09:10-0500 Body mass index (BMI) [Ratio] 23.51 kg/m2 Beata Dahl MD Work Phone: [facility] 02-14-2024 09:10-0500 Body weight 67.13 kg Beata Dahl MD Work Phone: [facility] 02-14-2024 09:10-0500 Diastolic blood pressure 60 mm[Hg] Beata Dahl MD Work Phone: [facility] 02-14-2024 09:10-0500 Systolic blood pressure 114 mm[Hg] Beata Dahl MD Work Phone: [facility] 01-21-2024 13:09-0500 Body height 169 cm Lorenzo Del Toro DO Work Phone: [facility] 01-21-2024 13:09-0500 Body mass index (BMI) [Ratio] 23.11 kg/m2 Lorenzo Del Toro DO Work Phone: [facility] 01-21-2024 13:09-0500 Body temperature 97.39 [degF] Lorenzo Del Toro DO Work Phone: [facility] 01-21-2024 13:09-0500 Body weight 66 kg Lorenzo Del Toro DO Work Phone: [facility] 01-21-2024 13:09-0500 Diastolic blood pressure 70 mm[Hg] Lorenzo Del Toro DO Work Phone: [facility] 01-21-2024 13:09-0500 Heart rate 88 /min Lorenzo Del Toro DO Work Phone: [facility] 01-21-2024 13:09-0500 Respiratory rate 12 /min Lorenzo Del Toro DO Work Phone: [facility] 01-21-2024 13:09-0500 Systolic blood pressure 110 mm[Hg] Lorenzo Del Toro DO Work Phone: [facility] 01-07-2024 08:37-0400 Body height 168.9 cm Malia Romero APRN.CNM Work Phone: [facility] 01-07-2024 08:37-0400 Body mass index (BMI) [Ratio] 23.47 kg/m2 Malia Romero APRN.CNM Work Phone: [facility] 01-07-2024 08:37-0400 Body weight 66.95 kg Malia Romero APRN.CNM Work Phone: [facility] 01-07-2024 08:37-0400 Diastolic blood pressure 60 mm[Hg] Malia Romero APRN.CNM Work Phone: [facility] 01-07-2024 08:37-0400 Systolic blood pressure 120 mm[Hg] Malia Romero APRN.CNM Work Phone: [facility] 01-14-2023 08:43-0400 Body height 168 cm Lorenzo Del Toro DO Work Phone: [facility] 01-14-2023 08:43-0400 Body temperature 97 [degF] Lorenzo Del Toro DO Work Phone: [facility] 01-14-2023 08:43-0400 Body weight 67.59 kg Lorenzo Del Toro DO Work Phone: [facility] 01-14-2023 08:43-0400 Diastolic blood pressure 68 mm[Hg] Lorenzo Del Toro DO Work Phone: [facility] 01-14-2023 08:43-0400 Heart rate 80 /min Lorenzo Del Toro DO Work Phone: [facility] 01-14-2023 08:43-0400 Respiratory rate 12 /min Lorenzo Del Toro DO Work Phone: [facility] 01-14-2023 08:43-0400 Systolic blood pressure 112 mm[Hg] Lorenzo Del Toro DO Work Phone: [facility] 12-31-2022 08:22-0400 Body height 169.5 cm Taylor Plotts BILLING ANALYST.CNM Work Phone: [facility] 12-31-2022 08:22-0400 Body weight 67.13 kg Taylor Plotts BILLING ANALYST.CNM Work Phone: [facility] 12-31-2022 08:22-0400 Diastolic blood pressure 74 mm[Hg] Taylor Plotts BILLING ANALYST.CNM Work Phone: [facility] 12-31-2022 08:22-0400 Systolic blood pressure 104 mm[Hg] Taylor Plotts BILLING ANALYST.CNM Work Phone: [facility] 01-09-2022 14:25-0400 Body height 169.5 cm Lorenzo Del Toro DO Work Phone: [facility] 01-09-2022 14:25-0400 Body temperature 96.4 [degF] Lorenzo Del Toro DO Work Phone: [facility] 01-09-2022 14:25-0400 Body weight 68.49 kg Lorenzo Del Toro DO Work Phone: [facility] 01-09-2022 14:25-0400 Diastolic blood pressure 60 mm[Hg] Lorenzo Del Toro DO Work Phone: [facility] 01-09-2022 14:25-0400 Heart rate 80 /min Lorenzo Valleon DO Work Phone: [facility] 01-09-2022 14:25-0400 Respiratory rate 16 /min Lorenzo Del Toro DO Work Phone: [facility] 01-09-2022 14:25-0400 Systolic blood pressure 90 mm[Hg] Lorenzo Del Toro DO Work Phone: [facility] 06-22-2021 18:46-0400 Diastolic blood pressure 67 mm[Hg] Dr. Lorenzo Del Toro Work Phone: [facility] Work Phone: 06-22-2021 18:46-0400 Heart rate 80 /min Dr. Lorenzo Del Toro Work Phone: [facility] [facility] Work Phone: 06-22-2021 18:46-0400 Respiratory rate 16 /min Dr. oLrenzo Del Toro Work Phone: [facility] Work Phone: 06-22-2021 18:46-0400 Systolic blood pressure 130 mm[Hg] Dr. Lorenzo Del Toro Work Phone: [facility] Work Phone: 06-22-2021 17:14-0400 Body height 170.[address] Lorenzo Del Toro Work Phone: [facility] Work Phone: 06-22-2021 17:14-0400 Body mass index (BMI) [Ratio] 24.1 kg/m2 Dr. Lorenzo Del Toro Work Phone: [facility] Work Phone: 06-22-2021 17:14-0400 Body temperature 96.4 [degF] Dr. Lorenzo Del Toro Work Phone: [facility] Work Phone: 06-22-2021 [id number] Body weight 69.[address] Lorenzo Del Toro Work Phone: [facility] Work Phone: 06-22-2021 17:14040 SaO2% (BldA) [Mass fraction] 98 % Dr. Lorenzo Del Toro Work Phone: [facility] Work Phone: Encounters Encounter Date Encounter Type Care Provider Facility Start: 08-19-2024 End: 08-19-2024 ambulatory APRIL YATES Facility:[facility] Start: 08-11-2024 End: 08-11-2024 Patient encounter procedure April Yates MD Work Phone: OB/Gynecology Comment on above: Encounter for superv ision of normal first in third trimester (HCC) (Primary Dx); 38 weeks gestation of ([facility]) Start: 08-11-2024 End: 08-11-2024 ambulatory APRIL YATES Facility:[facility] Start: 08-04-2024 End: 08-04-2024 ambulatory APRIL YATES Facility:[facility] Start: 07-28-2024 End: 07-28-2024 Patient encounter procedure Beata Dahl MD Work Phone: OB/Gynecology Comment on above: 36 weeks gestation o f (HCC) (Primary Dx); Encounter for supervision of normal first in third trimester ([facility]); Rh negative state in antepartum period ([facility]) Start: 07-28-2024 End: 07-28-2024 ambulatory BEATA DAHL Facility:[facility] Start: 07-20-2024 End: 07-20-2024 Patient encounter procedure Malia Romero APRN.CNM Work Phone: OB/Gynecology Comment on above: 35 weeks gestation o f (HCC) (Primary Dx); Encounter for supervision of normal first in third trimester (HCC) Start: 07-20-2024 End: 07-20-2024 ambulatory BEATA DAHL Facility:[facility] Start: 07-06-2024 End: 07-06-2024 Patient encounter procedure Taylor King APRN.CNM Work Phone: OB/Gynecology Comment on above: Encounter for superv ision of normal first in third trimester (HCC) (Primary Dx); 33 weeks gestation of (HCC) Start: 07-06-2024 End: 07-06-2024 ambulatory TAYLOR KING Facility:[facility] Start: 06-22-2024 End: 06-22-2024 ambulatory MARY SHIN Facility:[facility] Start: 06-22-2024 End: 06-22-2024 Patient encounter procedure Mary Shin MD Work Phone: OB/Gynecology Comment on above: Encounter for superv ision of normal first in second trimester (HCC) (Primary Dx); 31 weeks gestation of (HCC) Start: 06-09-2024 End: 06-09-2024 ambulatory BEATA DAHL Facility:[facility] Start: 06-09-2024 End: 06-09-2024 Patient encounter procedure Beata Dahl MD Work Phone: OB/Gynecology Comment on above: Encounter for superv ision of normal first in second trimester (Primary Dx); Rh negative state in antepartum period; 29 weeks gestation of Start: 06-01-2024 End: 08-01-2024 Follow-up encounter Aydee Luna MD Work Phone: OB/Gynecology Start: 05-27-2024 End: 05-27-2024 Patient encounter procedure Malia Romero APRN.CNM Work Phone: OB/Gynecology Comment on above: Encounter for superv ision of normal first in second trimester (Primary Dx); 27 weeks gestation of ; Rh negative state in antepartum period Start: 05-27-2024 End: 05-27-2024 ambulatory LORENZO DEL TORO Facility:[facility] Start: 05-01-2024 End: 05-01-2024 ambulatory BEATA DAHL Facility:[facility] Start: 05-01-2024 End: 05-01-2024 Patient encounter procedure Beata Dahl MD Work Phone: OB/Gynecology Comment on above: 24 weeks gestation o f (Primary Dx); Screening for diabetes mellitus; Supervision of other normal , antepartum Start: 04-03-2024 End: 04-03-2024 ambulatory KEVIN SANCHEZ Facility:[facility] Start: 04-03-2024 End: 04-03-2024 Patient encounter procedure [employer] [facility] Speech Therapist [facility] Comment on above: Encounter for anatomic survey (Primary Dx); 20 weeks gestation of 20 weeks gestation o f (Primary Dx); Supervision of other normal , antepartum; with uncertain dates in first trimester Start: 03-13-2024 End: 03-13-2024 Telephone encounter Beata Dahl MD Work Phone: OB/Gynecology Start: 03-10-2024 End: 03-12-2024 ambulatory Mary Shin MD Work Phone: OB/Gynecology Comment on above: Anatomy scan Start: 03-10-2024 End: 03-10-2024 Patient encounter procedure Mary Shin MD Work Phone: OB/Gynecology Comment on above: 16 weeks gestation o f (Primary Dx); Supervision of other normal , antepartum Start: 02-14-2024 End: 02-14-2024 Telephone encounter Malia Romero APRN.CNM Work Phone: OB/Gynecology Comment on above: Orders Start: 02-14-2024 End: 02-14-2024 ambulatory BEATA DAHL Facility:[facility] Start: 02-14-2024 End: 02-14-2024 Patient encounter procedure Beata Dahl MD Work Phone: OB/Gynecology Comment on above: 13 weeks gestation o f (Primary Dx); Encounter for supervision of normal first in second trimester; Encounter for anatomic survey screening for malformation using ultrasonics (Primary Dx); 13 weeks gestation of ; Nuchal translucency of fetus on ultrasound Start: 02-11-2024 End: 02-17-2024 Telephone encounter Jessa Mackenzie MD Work Phone: [facility] [place] Comment on above: Results Start: 02-11-2024 End: 02-11-2024 ambulatory Lorenzo Del Toro Facility:[facility] Start: 01-21-2024 End: 01-21-2024 Patient encounter procedure Lorenzo Del Toro DO Work Phone: Family [facility] [place] Comment on above: Well adult exam (Sowmya chas Dx); 9 weeks gestation of Start: 01-21-2024 End: 01-21-2024 Patient encounter status Lorenzo Del Toro DO Work Phone: [facility] Work Phone: Start: 01-21-2024 End: 01-21-2024 ambulatory LORENZO Nelson DEL TORO Facility:[facility] Start: 01-21-2024 Encounter for genera l adult medical examination without abnormal findings LORENZO Nelson DEL TORO [facility] Start: 01-07-2024 End: 01-07-2024 ambulatory MALIA ROMERO Facility:[facility] Start: 01-07-2024 End: 01-07-2024 Patient encounter procedure Malia [place] APRN.CNM Work Phone: OB/Gynecology Comment on above: with uncer tain dates in first trimester (Primary Dx); Supervision of other normal , antepartum; Encounter for supervision of normal first in first trimester Start: 01-14-2023 End: 01-14-2023 Patient encounter procedure Lorenzo Del Toro DO Work Phone: [facility] [place] Comment on above: Well adult exam (Sowmya chas Dx) Start: 01-14-2023 End: 01-14-2023 Patient encounter status Lorenzo Del Toro DO Work Phone: [facility] Work Phone: Start: 12-31-2022 End: 12-31-2022 Patient encounter procedure Taylor King BILLING ANALYST.CNM Work Phone: OB/Gynecology Comment on above: Encounter for gyneco logical examination (general) (routine) without abnormal findings (Primary Dx) Start: 12-31-2022 End: 12-31-2022 Patient encounter status Taylor King BILLING ANALYST.CNM Work Phone: [facility] Work Phone: Start: 01-09-2022 End: 01-09-2022 Patient encounter procedure Lorenzo Del Toro DO Work Phone: [facility] Comment on above: Well adult exam (Sowmya chas Dx); Thyromegaly Start: 01-09-2022 End: 01-09-2022 Patient encounter status Lorenzo Del Toro DO Work Phone: [facility] Start: 06-22-2021 End: 06-22-2021 Emergency department patient [facility] Dr. [facility] Start: 03-14-2021 End: 03-14-[address] [facility] Start: 12-25-2017 End: 12-26-2017 Patient encounter JEANCARLOS WALDRON TRISTON [facility] Start: 12-16-2017 End: 01-07-2024 Patient encounter status Lorenzo Del Toro DO Work Phone: [facility] Work Phone: Start: 10-29-2017 End: 10-30-2017 Patient encounter JEANCARLOS GOLDSTEIN [facility] Procedures Date Procedure Procedure Detail Performing Clinician Start: 08-11-2024 Urnls dip stick/tabl et rgnt non-auto w/o micrscp April Yates MD Work Phone: Start: 07-28-2024 Urnls dip stick/tabl et rgnt non-auto w/o micrscp Beata Dahl MD Work Phone: Start: 05-27-2024 Antibody screen LORENZO DEL TORO Comment on above: Order Comment: Speci men Type: BLOOD SPECIMEN Ordering Facility: [facility] Address: [address] [place], [place] [id number] Performed By: #### T SPN #### [facility] CLIA [id number] [address] [place], [place] [address] [address] [place] Start: 04-03-2024 Us preg uterus after 1st trimest 1/ gestation Beata Dahl MD Work Phone: Start: 02-14-2024 Us nuchal translucency 1st gestation Beata Dahl MD Work Phone: Start: 01-07-2024 Us uterus l imited fetuses Malia Romero BILLING ANALYST.CNM Work Phone: Plan of Treatment Date Care Activity Detail Author Start: 08-18-2033 Urine microalbumin profile DTaP,Tdap,Td Vaccine (9 - Td or Tdap) [facility] Start: 08-09-2026 Urine microalbumin profile [facility] Start: 01-20-2025 Covid-19 Vaccine () Covid-19 Vaccine () [facility] Comment on above: Postponed from 11/16 (Declined at this time) Start: 12-29-2024 PAP TESTING PAP TESTING [facility] Start: 12-29-2024 Screening for malign ant neoplasm of cervix Cervical Cancer Screening [facility] Start: 08-19-2024 End: 08-19-2024 Patient encounter procedure 08/19/2024 8:10 AM EDT Routine Office Visit OB/Gynecology [address] [place] [id number] April Da Silva MD [address] [place] [id number] Ob OB/Gynecology Comment on above: Ob Start: 08-11-2024 End: 08-11-2024 Patient encounter procedure 08/11/2024 10:20 AM EDT Routine Office Visit OB/Gynecology [address] [place] [phone] Kevin Bradford MD [address] [place] [address] OB OB/Gynecology Comment on above: OB Start: 08-04-2024 End: 08-04-2024 Patient encounter procedure 08/04/2024 9:10 AM EDT Routine Office Visit OB/Gynecology [address] [place] [address] April Da Silva MD [address] [place] [address] Ob OB/Gynecology Comment on above: Ob Start: 07-28-2024 End: 07-28-2024 Patient encounter procedure 07/28/2024 4:00 PM EDT Routine Office Visit OB/Gynecology [address] [place] [address] Beata Dahl MD [address] [place] [address] (Fax) OB Routine OB/Gynecology Comment on above: OB Routine Start: 07-20-2024 End: 07-20-2024 Patient encounter procedure 07/20/2024 2:30 PM EDT Routine Office Visit OB/Gynecology [address] [place] [address] Beata Dahl MD [address] [place] [address] (Fax) OB Routine OB/Gynecology Comment on above: OB Routine Start: 07-06-2024 End: 07-06-2024 Patient encounter procedure 07/06/2024 4:30 PM EDT Routine Office Visit OB/Gynecology [address] [place] [address] Taylor King APRN.[facility] [address] [place] [address] OB Routine OB/Gynecology Comment on above: OB Routine Start: 06-22-2024 End: 06-22-2024 Patient encounter procedure 06/22/2024 3:50 PM EDT Routine Office Visit OB/Gynecology [address] [place] [address] Mary Shin MD [address] [place] [address] OB Routine OB/Gynecology Comment on above: OB Routine Start: 06-09-2024 End: 06-09-2024 Patient encounter procedure 06/09/2024 11:10 AM EDT Routine Office Visit OB/Gynecology [address] [place] [address] Beata Dahl MD [address] [place] [address] OB Routine OB/Gynecology Comment on above: OB Routine Start: 05-29-2024 End: 08-28-2024 ANEMIA REFLEX PANEL ANEMIA REFLEX PANEL Lab Routine 24 weeks gestation of Expected: 05/29/2024 (Approximate), Expires: 08/28/2024 [facility] Comment on above: Expected: 05/29/2024 (Approximate), Expires: 08/28/2024 Start: 05-29-2024 End: 05-01-2025 GESTATIONAL GLUCOSE SCREEN, 1-HOUR, 50 GRAM, NON-FASTING GESTATIONAL GLUCOSE SCREEN, 1-HOUR, 50 GRAM, NON-FASTING Lab Routine Screening for diabetes mellitus Expected: 05/29/2024 (Approximate), Expires: 05/01/2025 [facility] Work Phone: Comment on above: Expected: 05/29/2024 (Approximate), Expires: 05/01/2025 Start: 05-29-2024 End: 05-01-2025 SYPHILIS TREPONEMAL W/REFLEX SYPHILIS TREPONEMAL W/REFLEX Lab Routine 24 weeks gestation of Expected: 05/29/2024 (Approximate), Expires: 05/01/2025 [facility] Comment on above: Expected: 05/29/2024 (Approximate), Expires: 05/01/2025 Start: 05-29-2024 End: 08-28-2024 TYPE + SCREEN TYPE + SCREEN Blood Bank Routine Supervision of other normal , antepartum Expected: 05/29/2024 (Approximate), Expires: 08/28/2024 [facility] Comment on above: Expected: 05/29/2024 (Approximate), Expires: 08/28/2024 Start: 05-27-2024 End: 05-27-2024 Patient encounter procedure 05/27/2024 10:30 AM EDT Routine Office Visit OB/Gynecology [address] [place] [address] Malia [place] APRN.CN [address] [place] [address] OB OB/Gynecology Comment on above: OB Start: 05-27-2024 End: 05-27-2024 ambulatory 05/27/2024 10:15 AM EDT Results Only [place] [facility] [address] [place] [address] LAB [facility] Comment on above: LAB Start: 05-01-2024 End: 05-01-2024 Patient encounter procedure 05/01/2024 3:40 PM EST Routine Office Visit OB/Gynecology [address] [address] Beata Dahl MD [address] [place] [address] OB OB/Gynecology Comment on above: OB Start: 04-03-2024 End: 04-03-2024 Patient encounter procedure 04/03/2024 2:40 PM EST Routine Office Visit OB/Gynecology [address] [place] [address] Kevin Bradford MD [address] [place] [address] OB Routine OB/Gynecology Comment on above: OB Routine Start: 04-03-2024 End: 04-03-2024 Patient encounter procedure 04/03/2024 1:30 PM EST Routine Office Visit OB/Gynecology [address] [place] [address] Remote, Home Health Speech Therapist [facility] [employer] [facility] [address] [place] [address] Anatomy Scan OB/Gynecology Comment on above: Anatomy Scan Start: 03-10-2024 End: 03-10-2024 Patient encounter procedure 03/10/2024 10:50 AM EST Routine Office Visit OB/Gynecology [address] [place] [address] Mary Shin MD [address] [place] [address] OB OB/Gynecology Comment on above: OB Start: 02-14-2024 End: 02-13-2025 NUCHAL TRANSLUCENCY WHI NUCHAL TRANSLUCENCY WHI Anc Imaging Routine Supervision of other normal , antepartum 13 weeks gestation of Expected: 02/14/2024, Expires: 02/13/2025 [facility] Work Phone: Comment on above: Expected: 02/14/2024 , Expires: 02/13/2025 Start: 02-14-2024 End: 02-13-2025 OBSTETRIC ULTRASOUND WHI OBSTETRIC ULTRASOUND WHI Anc Imaging Routine Encounter for anatomic survey Expected: 02/14/2024, Expires: 02/13/2025 [facility] Work Phone: Comment on above: Expected: 02/14/2024 , Expires: 02/13/2025 Start: 02-14-2024 End: 02-14-2024 Patient encounter procedure Maternal Medicine Comment on above: Nuchal US OB routine Start: 01-21-2024 End: 04-21-2024 25-hydroxyvitamin D3 [Mass/volume] in Serum or Plasma VITAMIN D 25 HYDROXY Lab Routine Well adult exam Expected: 01/21/2024, Expires: 04/21/2024 [facility] Work Phone: Comment on above: Expected: 01/21/2024 , Expires: 04/21/2024 Start: 01-21-2024 End: 04-21-2024 Thyrotropin [Units/volume] in Serum or Plasma THYROID STIMULATING HORMONE Lab Routine Well adult exam Expected: 01/21/2024, Expires: 04/21/2024 [facility] Comment on above: Expected: 01/21/2024 , Expires: 04/21/2024 Start: 01-21-2024 End: 04-21-2024 Thyroxine (T4) free [Mass/volume] in Serum or Plasma T4 FREE/FREE THYROXINE Lab Routine Well adult exam Expected: 01/21/2024, Expires: 04/21/2024 [facility] Comment on above: Expected: 01/21/2024 , Expires: 04/21/2024 Start: 01-21-2024 End: 04-21-2024 Triiodothyronine (T3) Free [Mass/volume] in Serum or Plasma T3, FREE Lab Routine Well adult exam Expected: 01/21/2024, Expires: 04/21/2024 [facility] Comment on above: Expected: 01/21/2024 , Expires: 04/21/2024 Start: 01-21-2024 End: 01-21-2024 Patient encounter procedure 01/21/2024 1:00 PM EST Office Visit [facility] [place] [address] [place] [address] Lorenzo Del Toro DO [address] [place] [address] Annual physical [facility] [place] Comment on above: Annual physical Start: 01-15-2024 Covid-19 Vaccine ( season) Covid-19 Vaccine () [facility] Comment on above: Postponed from 11/16 (Declined at this time) Start: 01-07-2024 End: 04-07-2024 CBC panel - Blood by Automated count COMPLETE BLOOD COUNT Lab Routine with uncertain dates in first trimester Supervision of other normal , antepartum Expected: 01/07/2024, Expires: 04/07/2024 [facility] Work Phone: Comment on above: Expected: 01/07/2024 , Expires: 04/07/2024 Start: 01-07-2024 End: 04-07-2024 Hemoglobin A1c in Blood HEMOGLOBIN A1C Lab Routine with uncertain dates in first trimester Supervision of other normal , antepartum Expected: 01/07/2024, Expires: 04/07/2024 [facility] Comment on above: Expected: 01/07/2024 , Expires: 04/07/2024 Start: 01-07-2024 End: 04-07-2024 HEMOGLOBIN EVALUATION CASCADE HEMOGLOBIN EVALUATION CASCADE Lab Routine with uncertain dates in first trimester Supervision of other normal , antepartum Expected: 01/07/2024, Expires: 04/07/2024 [facility] Comment on above: Expected: 01/07/2024 , Expires: 04/07/2024 Start: 01-07-2024 End: 04-07-2024 Hepatitis B virus surface Ag [Presence] in Serum HEPATITIS B SURFACE ANTIGEN Lab Routine with uncertain dates in first trimester Supervision of other normal , antepartum Expected: 01/07/2024, Expires: 04/07/2024 [facility] Comment on above: Expected: 01/07/2024 , Expires: 04/07/2024 Start: 01-07-2024 End: 04-07-2024 Hepatitis C virus Ab [Presence] in Serum HEPATITIS C ANTIBODY IA WITH CONFIRMATION Lab Routine with uncertain dates in first trimester Supervision of other normal , antepartum Expected: 01/07/2024, Expires: 04/07/2024 [facility] Comment on above: Expected: 01/07/2024 , Expires: 04/07/2024 Start: 01-07-2024 End: 04-07-2024 HIV 1+2 Ab [Presence] in Serum or Plasma by Immunoassay HIV 1/2 COMBO WITH REFLEX TO DIFFERENTIATION Lab Routine with uncertain dates in first trimester Supervision of other normal , antepartum Expected: 01/07/2024, Expires: 04/07/2024 [facility] Comment on above: Expected: 01/07/2024 , Expires: 04/07/2024 Start: 01-07-2024 End: 04-07-2024 RUBELLA IGG ANTIBODY RUBELLA IGG ANTIBODY Lab Routine with uncertain dates in first trimester Supervision of other normal , antepartum Expected: 01/07/2024, Expires: 04/07/2024 [facility] Comment on above: Expected: 01/07/2024 , Expires: 04/07/2024 Start: 01-07-2024 End: 04-07-2024 SYPHILIS TREPONEMAL W/REFLEX SYPHILIS TREPONEMAL W/REFLEX Lab Routine with uncertain dates in first trimester Supervision of other normal , antepartum Expected: 01/07/2024, Expires: 04/07/2024 [facility] Comment on above: Expected: 01/07/2024 , Expires: 04/07/2024 Start: 01-07-2024 End: 04-07-2024 TYPE + SCREEN TYPE + SCREEN Blood Bank Routine with uncertain dates in first trimester Supervision of other normal , antepartum Expected: 01/07/2024, Expires: 04/07/2024 [facility] Comment on above: Expected: 01/07/2024 , Expires: 04/07/2024 Start: 11-17-2023 Covid-19 Vaccine () Covid-19 Vaccine () [facility] Start: 12-31-2022 End: 03-02-2023 Hepatitis B virus surface Ag [Presence] in Serum [facility] Work Phone: Comment on above: Expected: 12/31/2022 , Expires: 03/02/2023 Start: 12-31-2022 End: 03-02-2023 Hepatitis C virus Ab [Presence] in Serum [facility] Work Phone: Comment on above: Expected: 12/31/2022 , Expires: 03/02/2023 Start: 12-31-2022 End: 03-02-2023 HIV 1+2 Ab [Presence] in Serum or Plasma by Immunoassay [facility] Work Phone: Comment on above: Expected: 12/31/2022 , Expires: 03/02/2023 Start: 12-31-2022 End: 03-02-2023 SYPHILIS TOTAL W/REFLEX [facility] Work Phone: Comment on above: Expected: 12/31/2022 , Expires: 03/02/2023 Start: 11-16-2022 Covid-19 Vaccine () Covid-19 Vaccine () [facility] Start: 03-18-2022 Depression Assessment Depression Ass essment [facility] Start: 01-09-2022 End: 03-11-2022 THYROID PEROXIDASE ANTIBODY BLOOD THYROID PEROXIDASE ANTIBODY BLOOD Lab Routine Thyromegaly Expected: 01/09/2022, Expires: 03/11/2022 [facility] Work Phone: Comment on above: Expected: 01/09/2022 , Expires: 03/11/2022 Start: 01-09-2022 End: 03-11-2022 Thyrotropin [Units/volume] in Serum or Plasma TSH BLD Lab Routine Thyromegaly Expected: 01/09/2022, Expires: 03/11/2022 [facility] Work Phone: Comment on above: Expected: 01/09/2022 , Expires: 03/11/2022 Start: 01-09-2022 End: 03-11-2022 Thyroxine (T4) free [Mass/volume] in Serum or Plasma T4 FREE/FREE THYROX Lab Routine Thyromegaly Expected: 01/09/2022, Expires: 03/11/2022 [facility] Work Phone: Comment on above: Expected: 01/09/2022 , Expires: 03/11/2022 Start: 01-09-2022 End: 03-11-2022 Triiodothyronine (T3) Free [Mass/volume] in Serum or Plasma T3 FREE BLD Lab Routine Thyromegaly Expected: 01/09/2022, Expires: 03/11/2022 [facility] Work Phone: Comment on above: Expected: 01/09/2022 , Expires: 03/11/2022 Start: 09-01-2021 COVID-19 VACCINE (4 - Booster for Moderna series) COVID-19 VACCINE (4 - Booster for Moderna series) [facility] Start: 2013 Anxiety Screening Anxiety Screening [facility] Start: 2013 Depression Screening Depression Scre ening [facility] Start: 2013 HEPATITIS C SCREENING HEPATITIS C ROXANNE VENKATA [facility] Start: 2013 HIV SCREENING HIV SCREENING [facility] Bacteria identified in Urine by Culture URINE CULTURE Microbiology Routine with uncertain dates in first trimester Supervision of other normal , antepartum 01/07/2024 9:46 AM EDT [facility] Chlamydia trachomatis+Neisseria gonorrhoeae DNA [Presence] in Unspecified specimen by SRINIVAS with probe detection GONORRHEA/CHLAMYDIA NAAT Lab Routine with uncertain dates in first trimester Supervision of other normal , antepartum 01/07/2024 9:46 AM EDT [facility] Patient Education ED Gastroenter itis, Viral (Adult) [facility] Work Phone: Patient referral [facility] Work Phone: ROUTINE, GR OUP B STREPTOCOCCUS BY PCR ROUTINE, GROUP B STREPTOCOCCUS BY PCR Microbiology Routine 36 weeks gestation of (HCC) Encounter for supervision of normal first in third trimester ([facility]) 07/28/2024 4:19 PM EDT [facility] Work Phone: URINE OB DIP B/O URINE OB DIP B/ O Lab Routine 35 weeks gestation of ([facility]) Encounter for supervision of normal first in third trimester ([facility]) Ordered: 07/20/2024 [facility] Work Phone: Comment on above: Ordered: 07/20/2024 [facility] Immunizations Immunization Date Immunization Notes Care Provider Lucia pérez 05-27-2024 RHO(D) immune globul in- IV or IM Malia Romero APRN.CNM Work Phone: [facility] 12-13-2020 influenza, seasonal, injectable Dr. Lorenzo Del Toro Work Phone: [facility] Work Phone: 12-13-2020 influenza, seasonal, injectable, preservative free Lorenzo Del Toro DO Work Phone: [facility] 05-03-2020 Covid (Moderna) Dr. Lorenzo gibson Work Phone: [facility] Work Phone: 04-05-2020 Covid (Moderna) Dr. Lorenzo gibson Work Phone: [facility] Work Phone: 12-15-2019 influenza, seasonal, injectable Dr. Lorenzo Del Toro Work Phone: [facility] Work Phone: 12-17-2017 influenza virus vaccine, unspecified formulation Lorenzo Del Toro DO Work Phone: [facility] 11-17-2016 influenza, injectabl e, quadrivalent, contains preservative Lorenzo Del Toro DO Work Phone: [facility] 08-09-2016 tetanus toxoid, redu delmy diphtheria toxoid, and acellular pertussis vaccine, adsorbed Lorenzo Del Toro DO Work Phone: [facility] 2016 influenza, injectabl e, quadrivalent, contains preservative Lorenzo Del Toro DO Work Phone: [facility] Work Phone: 07-26-2015 tuberculin skin test ; purified protein derivative solution, intradermal Malia Romero APRN.CNM Work Phone: [facility] 12-25-2014 influenza, injectabl e, quadrivalent, contains preservative Lorenzo Del Toro DO Work Phone: [facility] Work Phone: 12-25-2013 influenza, injectabl e, quadrivalent, preservative free Lorenzo Del Toro DO Work Phone: [facility] 01-07-2013 influenza virus vaccine, live, attenuated, for intranasal use Lorenzo Del Toro DO Work Phone: [facility] Work Phone: 01-07-2013 Meningococcal, MCV4, unspecified conjugate formulation(groups A, C, Y and W-135) Lorenzo Del Toro DO Work Phone: [facility] Work Phone: 03-14-2012 influenza virus vaccine, live, attenuated, for intranasal use Lorenzo Del Toro DO Work Phone: [facility] Work Phone: 01-10-2010 influenza virus vaccine, live, attenuated, for intranasal use Lorenzo Del Toro DO Work Phone: [facility] Work Phone: 12-29-2008 influenza virus vaccine, live, attenuated, for intranasal use Lorenzo Del Toro DO Work Phone: [facility] Work Phone: 01-14-2008 human papilloma viru s vaccine, quadrivalent Lorenzo Del Toro DO Work Phone: [facility] Work Phone: 01-14-2008 influenza virus vaccine, live, attenuated, for intranasal use Lorenzo Del Toro DO Work Phone: [facility] Work Phone: 03-15-2007 human papilloma viru s vaccine, quadrivalent Lorenzo Del Toro DO Work Phone: [facility] Work Phone: 02-10-2007 influenza virus vaccine, unspecified formulation Lorenzo Del Toro DO Work Phone: [facility] Work Phone: 02-10-2007 tetanus toxoid, redu delmy diphtheria toxoid, and acellular pertussis vaccine, adsorbed Lorenzo Del Toro DO Work Phone: [facility] Work Phone: 01-28-2007 human papilloma viru s vaccine, quadrivalent Lorenzo Del Toro DO Work Phone: [facility] 01-11-2006 influenza virus vaccine, live, attenuated, for intranasal use Lorenzo Del Toro DO Work Phone: [facility] Work Phone: 01-11-2006 Meningococcal, MCV4, unspecified conjugate formulation(groups A, C, Y and W-135) Lorenzo Del Toro DO Work Phone: [facility] Work Phone: 04-19-2000 diphtheria, tetanus toxoids and acellular pertussis vaccine Lorenzo Del Toro DO Work Phone: [facility] Work Phone: 04-19-2000 measles, mumps and rubella virus vaccine Lorenzo Del Toro DO Work Phone: [facility] Work Phone: 04-19-2000 poliovirus vaccine, inactivated Lorenzo Del Toro DO Work Phone: [facility] Work Phone: 07-13-1996 haemophilus influenz ae type b vaccine, HbOC conjugate Lorenzo Del Toro DO Work Phone: [facility] Work Phone: 05-15-1996 diphtheria, tetanus toxoids and acellular pertussis vaccine Lorenzo Del Toro DO Work Phone: [facility] Work Phone: 01-14-1996 measles, mumps and rubella virus vaccine Lorenzo Del Toro DO Work Phone: [facility] Work Phone: 1995 diphtheria, tetanus toxoids and pertussis vaccine Lorenzo Del Toro DO Work Phone: [facility] Work Phone: 1995 haemophilus influenz ae type b vaccine, HbOC conjugate Lorenzo Del Toro DO Work Phone: [facility] Work Phone: 1995 hepatitis B vaccine, pediatric or pediatric/adolescent dosage Lorenzo Del Toro DO Work Phone: [facility] Work Phone: 1995 trivalent poliovirus vaccine, live, oral Lorenzo Del Toro DO Work Phone: [facility] Work Phone: 1995 diphtheria, tetanus toxoids and pertussis vaccine Lorenzo Del Toro DO Work Phone: [facility] Work Phone: 1995 haemophilus influenz ae type b vaccine, HbOC conjugate Lorenzo Del Toro DO Work Phone: [facility] Work Phone: 1995 trivalent poliovirus vaccine, live, oral Lorenzo Del Toro DO Work Phone: [facility] Work Phone: 1995 diphtheria, tetanus toxoids and pertussis vaccine Lorenzo Del Toro DO Work Phone: [facility] Work Phone: 1995 haemophilus influenz ae type b vaccine, HbOC conjugate Lorenzo Del Toro DO Work Phone: [facility] Work Phone: 1995 hepatitis B vaccine, pediatric or pediatric/adolescent dosage Lorenzo Del Toro DO Work Phone: [facility] Work Phone: 1995 trivalent poliovirus vaccine, live, oral Lorenzo Del Toro DO Work Phone: [facility] Work Phone: 1995 hepatitis B vaccine, pediatric or pediatric/adolescent dosage Lorenzo Edl Toro DO Work Phone: [facility] Work Phone: Payers Date Payer Category Payer Self-pay [id number] 2022 Private Health Insurance [id number] 2022 Unknown [id number] 2021 Unknown MMO MMO TPA [id number] 2021-Present [address] [place] [address] PPO [id number] Unknown [facility] [id number] Unknown [facility] [id number] Unknown [id number] Social History Date Type Detail Facility [facility] Work Phone: Start: 06-22-2021 Tobacco smoking status NHIS Unknown if ever smoked [facility] Work Phone: Start: 1995 Sex Assigned At Female [facility] Start: 12-29-2021 Tobacco smoking status NHIS Never smoked tobacco [facility] Start: 12-29-2021 Tobacco use and exposure Smokeless tobacco non-user [facility] Start: 01-09-2022 End: 07-28-2024 Alcohol intake Current drinker of alcohol (finding) [facility] Start: 01-09-2022 History SDOH Alcohol Frequency 2 [facility] Start: 01-09-2022 History SDOH Alcohol Std Drinks 1 [facility] Start: 01-09-2022 History SDOH Social Connections Phone 5 [facility] Start: 01-09-2022 History SDOH Social Connections Rastafari 3 [facility] Start: 01-09-2022 History SDOH Social Connections Living 7 [facility] Start: 01-09-2022 History SDOH Physical Activity DPW 0 [facility] Start: 12-19-2020 Education 17 [facility] Start: 12-19-2020 Alcohol Comment socially/rare [facility] Start: 12-30-2021 End: 01-09-2022 Exposure to SARS-CoV-2 (event) Not sure [facility] Work Phone: Start: 01-08-2022 End: 01-07-2024 History of Social function [facility] Start: 01-08-2022 End: 01-07-2024 Social connection and isolation panel [facility] Do you belong to any clubs or organizations such as advent groups, unions, fraternal or athletic groups, or school groups? No [facility] Are you now , , , , never or living with a partner? Never [facility] How often to you hav e a drink containing alcohol? Monthly or less [facility] How many standard dr inks containing alcohol do you have on a typical day? 1 or 2 [facility] How often do you hav e 6 or more drinks on 1 occasion? Less than monthly [facility] How hard is it for y ou to pay for the very basics like food, housing, medical care, and heating Not hard at all [facility] Do you feel stress - tense, restless, nervous, or anxious, or unable to sleep at night because your mind is troubled all the time - these days [OSQ] Only a little [facility] (I/We) worried wheth er (my/our) food would run out before (I/we) got money to buy more. Never true [facility] Start: 01-28-2019 Gender identity Identifies as female gender (finding) [facility] Start: 01-28-2019 Sexual orientation Heterosexual (finding) [facility] How often do you hav e 6 or more drinks on 1 occasion? Never [facility] Start: 11-29-2023 [facility] Do you belong to any clubs or organizations such as advent groups, [employer], [employer] or athletic groups, or school groups? Yes [facility] Are you now , , , , never or living with a partner? [facility] Do you feel stress - tense, restless, nervous, or anxious, or unable to sleep at night because your mind is troubled all the time - these days [OSQ] Not at all [facility] Goals Date Patient Goal Desired Activity /State Personal health goal Clinical Notes 01-09-2022 to 08-11-2024 Quick Notes - April Da Silva MD - 08/11/2024 8:14 AM EDTPrenatal Quick Notes - April D aSilva MD - 08/11/2024 8:14 AM EDTPatient InstructionsPatient Instructions Note Date & Type Note Facility 08-11-2024 Progress note Formatting of t his note might be different from the original. DM-Pt doing well. Denies vaginal Bleeding, Leaking fluid, or regular Contractions. Pt reports good movement Physical Exam: Gen: female in no apparent distress Abd: soft, Gravid. Non tender to palpation. See flow sheet Participation of a fellow, resident, medical student, or advanced practice provider student in performing the sensitive examination was discussed with the patient or authorized manufacturers representative. The patient or authorized manufacturers representative has agreed to proceed with the sensitive examination. @ 38.4 weeks Assessment & Plan Encounter for supervision of normal first in third trimester (HCC) Orders: URINE OB DIP B/O 38 weeks gestation of (HCC) Kick counts and labor reviewed RTO weekly Orders: URINE OB DIP B/O April Romo MD [facility] Work Phone: 08-11-2024 Miscellaneous Notes DM-Pt doing well. Denies vaginal Bleeding, Leaking fluid, or regular Contractions. Pt reports good movement Physical Exam: Gen: female in no apparent distress Abd: soft, Gravid. Non tender to palpation. See flow sheet Participation of a fellow, resident, medical student, or advanced practice provider student in performing the sensitive examination was discussed with the patient or authorized manufacturers representative. The patient or authorized manufacturers representative has agreed to proceed with the sensitive examination. @ 38.4 weeks Assessment & Plan Encounter for supervision of normal first in third trimester (HCC) Orders: URINE OB DIP B/O 38 weeks gestation of ([facility]) Kick counts and labor reviewed RTO weekly Orders: URINE OB DIP B/O April Romo MD documented in this encounter [facility] 08-11-2024 Instructions Anusha Domínguez MA - 08/11/2024 7:59 AM EDT SEQUENTIAL SCREENINGS The [facility] offers sequential screenings for women who are interested in screenings for chromosomal abnormalities and certain defects during a . The sequential screen combines ultrasound and blood tests to determine the risk of chromosomal abnormalities, including Down's Syndrome (Trisomy 21) and Trisomy 18, as well as open neural tube defects including spina bifida. Ultrasound examination is performed between 11 weeks and 13 weeks gestational age. Blood tests are drawn after the ultrasound and again later in the between 15 and 21 weeks gestational age. Please let your physician know if you are interested in this testing. It will require an appointment with our nail technician. This is not an ultrasound performed by a physician in our office during a routine visit. SIGNS AND SYMPTOMS OF LABOR 1. Contractions every 10 minutes or more often 2. Clear, pink, or brownish fluid (water) leaking from vagina 3. Feeling that baby is pushing down, pressure 4. Low, dull backache 5. Cramps that feel like a period 6. Cramps with or without diarrhea If you notice any of the above symptoms, contact our office at [phone] and ask to speak with a nurse. After hours, you can call doctors registry at [phone] OR call [facility] at [phone] and ask to have the doctor environmental property assessor paged. If you consider this an emergency, dial 5--7 or go to your nearest emergency department. NEED HELP? Are you dealing with a violent or abusive relationship? Are you a victim of rape or sexual assult? Call [facility] ([place]) 24 hour Crisis Hotline: 239.912.1329 or 531-842-7434. MANUAL Your Guide to a Healthy manual is now on-line. Visit [email or web address] ncyGuide to download your free copy documented in this encounter [facility] 08-11-2024 Note HNO ID: [id number] Author: KIM RUIZ, ? Service: ? Author Type: Patient Time Study Observer Type: Progress Notes Filed: 08/11/2024 07:56 Note Text: POPULATION HEALTH NAVIGATION OUTREACH Action/FYI Responded via my chart added agriculture mechanic Reason for Outreach Medicaid OB/Peds Care Gaps due: N/A Patient Contacted: Spoke to patient/parent/or legal guardian Patient identified by name and : Yes Medicaid OB/Peds actions taken: /[employer] Toe Inserter added Navigation Signature: Kim Ruiz Population Health Navigator August 11, 2024 7:56 AM [facility] 08-07-2024 Note HNO ID: [id number] Author: KIM RUIZ, ? Service: ? Author Type: Patient Time Study Observer Type: Progress Notes Filed: 08/07/2024 08:42 Note Text: POPULATION HEALTH NAVIGATION OUTREACH Action/FYI Left message to add agriculture mechanic to OB provider field, verify/est pcp My chart sent Reason for Outreach Medicaid OB/Peds Care Gaps due: N/A Patient Contacted: Unable or unnecessary to reach patient: Unable to reach patient Left message MyChart message sent Navigation Signature: Kim Ruiz Population Health Navigator August 07, 2024 8:41 AM [facility] 08-07-2024 Note Patient Outreach (NE TNAV) LYNETTE BARRIENTOS ([id number]) 1995 F Date Time Provider Department 08/07/24 KIM RUIZ During your visit today, we recorded the following information about you: Kim Ruiz 08/07/2024 8:42 AM Signed POPULATION HEALTH NAVIGATION OUTREACH Action/FYI Left message to add agriculture mechanic to OB provider field, verify/est pcp My chart sent Reason for Outreach Medicaid OB/Peds Care Gaps due: N/A Patient Contacted: Unable or unnecessary to reach patient: Unable to reach patient Left message [employer]iWoundhart message sent Navigation Signature: Kim Ruiz Population Health Navigator August 07, 2024 8:41 AM Kim Ruiz 08/11/2024 7:56 AM Signed POPULATION HEALTH NAVIGATION OUTREACH Action/FYI Responded via my chart added agriculture mechanic Reason for Outreach Medicaid OB/Peds Care Gaps due: N/A Patient Contacted: Spoke to patient/parent/or legal guardian Patient identified by name and : Yes Medicaid OB/Peds actions taken: [place]/Steel Box Toe Inserter added Navigation Signature: Kim Ruiz Population Health Navigator August 11, 2024 7:56 AM Allergies As of Date: 08/07/2024 (No Known Allergies) Date Reviewed: 08/04/2024 Reviewed by: Anusha Domínguez MA - Fully Assessed Reason for Visit: Population Health Navigation Outreach [3910] Cmt: Ob peds Prescriptions as of 08/11/2024 - famotidine (PEPCID) 20 mg tablet Take 20 mg by mouth two times a day. - calcium carbonate (TUMS 500 ORAL) - Docusate Sodium 100 mg tab - aspirin, enteric coated (ECOTRIN LOW STRENGTH) 81 mg EC tablet Take 1 tablet by mouth once daily. - 25/iron fum/folic/dha (-1 ORAL) Take 1 tablet by mouth once daily. - cholecalciferol (VITAMIN D3) 1,000 unit tab tablet Take 1 tablet by mouth once daily. 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 S: Lynette Barrientos is a 29 year old female who presents at 08/21/2024, by Last Menstrual Period for a routine visit. Denies headache, visual changes, chest pain, shortness of breath, vaginal bleeding, leakage of fluid, or dysuria. Feeling well, no complaints. Good movement, No contractions O: See flow sheet Gen: No apparent distress Abd: Gravid, nontender GBS collected today VTX on US ASSESSMENT/PLAN: 1. 36 weeks gestation of (HCC) - ICD9: V22.2, ICD10: Z3A.36 (primary diagnosis) - URINE OB DIP B/O - ROUTINE, GROUP B STREPTOCOCCUS BY PCR 2. Encounter for supervision of normal first in third trimester (HCC) - ICD9: V22.0, ICD10: Z34.03 - URINE OB DIP B/O - ROUTINE, GROUP B STREPTOCOCCUS BY PCR 3. Rh negative state in antepartum period ([facility]) - ICD9: 646.83, ICD10: O26.899, Z67.91 - URINE OB DIP B/O Beata Dahl MD [facility] 07-28-2024 Miscellaneous Notes S: Lynette Barrientos is a 29 year old female who presents at 08/21/2024, by Last Menstrual Period for a routine visit. Denies headache, visual changes, chest pain, shortness of breath, vaginal bleeding, leakage of fluid, or dysuria. Feeling well, no complaints. Good movement, No contractions O: See flow sheet Gen: No apparent distress Abd: Gravid, nontender GBS collected today VTX on US ASSESSMENT/PLAN: 1. 36 weeks gestation of ([facility]) - ICD9: V22.2, ICD10: Z3A.36 (primary diagnosis) - URINE OB DIP B/O - ROUTINE, GROUP B STREPTOCOCCUS BY PCR 2. Encounter for supervision of normal first in third trimester ([facility]) - ICD9: V22.0, ICD10: Z34.03 - URINE OB DIP B/O - ROUTINE, GROUP B STREPTOCOCCUS BY PCR 3. Rh negative state in antepartum period ([facility]) - ICD9: 646.83, ICD10: O26.899, Z67.91 - URINE OB DIP B/O Beata Dahl MD documented in this encounter [facility] 07-28-2024 Instructions Avelina Sauceda MA - 07/28/2024 3:52 PM EDT SEQUENTIAL SCREENINGS The [facility] offers sequential screenings for women who are interested in screenings for chromosomal abnormalities and certain defects during a . The sequential screen combines ultrasound and blood tests to determine the risk of chromosomal abnormalities, including Down's Syndrome (Trisomy 21) and Trisomy 18, as well as open neural tube defects including spina bifida. Ultrasound examination is performed between 11 weeks and 13 weeks gestational age. Blood tests are drawn after the ultrasound and again later in the between 15 and 21 weeks gestational age. Please let your physician know if you are interested in this testing. It will require an appointment with our nail technician. This is not an ultrasound performed by a physician in our office during a routine visit. SIGNS AND SYMPTOMS OF LABOR 1. Contractions every 10 minutes or more often 2. Clear, pink, or brownish fluid (water) leaking from vagina 3. Feeling that baby is pushing down, pressure 4. Low, dull backache 5. Cramps that feel like a period 6. Cramps with or without diarrhea If you notice any of the above symptoms, contact our office at [phone] and ask to speak with a nurse. After hours, you can call doctors registry at [phone] OR call [facility] at [phone] and ask to have the doctor environmental property assessor paged. If you consider this an emergency, dial 9-1-3 or go to your nearest emergency department. NEED HELP? Are you dealing with a violent or abusive relationship? Are you a victim of rape or sexual assult? Call [facility] ([place]) 24 hour Crisis Hotline: 834.610.8825 or 414-209-8110. MANUAL Your Guide to a Healthy manual is now on-line. Visit [email or web address] ncyGuide to download your free copy documented in this encounter [facility] 07-21-2024 Progress note Formatting of t his note might be different from the original. AIDA-S: Lynette Barrientos is a 29 year old female who presents at 08/21/2024, by Last Menstrual Period for a routine visit. Denies headache, visual changes, chest pain, shortness of breath, vaginal bleeding, leakage of fluid, or dysuria. Feeling well, no complaints. O: See flow sheet Gen: No apparent distress Abd: Gravid, nontender ASSESSMENT/PLAN: 1. 35 weeks gestation of -Continue PNV -GBS next visit -Reviewed ways to promote spontaneous labor and perineal massage 2. Encounter for supervision of normal first in third trimester PTL precautions reviewed and when to call RTO in one week Malia Romero APRN.CNM [facility] 07-21-2024 Miscellaneous Notes AIDA-S: Lynette Barrientos is a 29 year old female who presents at 08/21/2024, by Last Menstrual Period for a routine visit. Denies headache, visual changes, chest pain, shortness of breath, vaginal bleeding, leakage of fluid, or dysuria. Feeling well, no complaints. O: See flow sheet Gen: No apparent distress Abd: Gravid, nontender ASSESSMENT/PLAN: 1. 35 weeks gestation of -Continue PNV -GBS next visit -Reviewed ways to promote spontaneous labor and perineal massage 2. Encounter for supervision of normal first in third trimester PTL precautions reviewed and when to call RTO in one week Malia Romero APRN.CNM documented in this encounter [facility] 07-20-2024 Instructions Malia Romero APRN.CNM - 07/20/2024 2:36 PM EDT Images from the original note were not included. What is my perineum? Your perineum is the area between your vaginal opening and your rectum. This area stretches when you give , and sometimes the perineum or vagina will tear as your baby is being born. If your health care provider cuts an episiotomy during your , it is this area that is cut. You may need stitches after your baby is born if you have a tear or have an episiotomy. How often do perineal tears occur? About 4 to 8 out of every 10 women who give vaginally will have some tear in their perineum. About two?thirds of these women will need some stitches. Is an episiotomy necessary? An episiotomy is not necessary for most women. Although they were common before the 1990s, they are rarely done today. However, sometimes your health care provider may recommend an episiotomy just as your baby is being born. For example, an episiotomy can help if your baby needs to be born very quickly. You can ask your health care provider to talk with you about episiotomy during a visit. Can my health care provider do anything to help me avoid a tear? There are many ways that your health care provider can help to reduce your chance of tearing. For example, your provider may: Apply a warm compress to the perineum just before the baby comes out Recommend specific positions for you to be in as you push Provide gentle downward pressure on the baby's head as your baby is coming out Ask that you push your baby out between contractions Avoid the use of forceps or a vacuum to help your baby be born Can I do anything before the to help me avoid a tear? Preventing a perineal tear that occurs during has been the subject of many research studies. Several studies have found that perineal massage during the last weeks of can reduce tearing at for women giving for the first time. This massage--using 2 fingers to stretch your perineal tissues--is performed by you, in your home, once or twice a week, for the last 4 to 6 weeks of your . The next page of this handout tells how to do this massage. For every 15 women who do perineal massage, one woman will avoid an episiotomy and perineal tearing that needs stitches. While you massage, you can practice relaxing the muscles in your perineum. This can help you prepare for the stretching, burning feeling you may have when your baby's head is born. Relaxing this area during can help prevent tearing. Does perineal massage in help all women? Massage seems to work better for some women than others. Women having their first baby, women who are 30 years or older, and women who have had episiotomies before have fewer tears and less severe tears when perineal massage is done during the last weeks of . Can my partner help? Yes! Many women find that it is easier to have their partners do this massage. See the instructions for perineal massage on the next page for more information. Are there any risks to perineal massage during ? Not that we know of. It is free. It doesn't hurt. It is easy to do. And most women don't mind doing it. However, you should not stretch the perineum until it hurts or massage too often, which can hurt the skin in that area. Do not do perineal massage more than once or twice a week. Women who do it more often do not have a lower risk of perineal tearing. Check with your health care provider before beginning perineal massage. And, if you believe your amniotic fluid (bag of harley) is leaking, check with your health care provider before putting anything in your vagina. Instructions for Perineal Massage During Wash your hands well, and make sure your fingernails are short. Relax in a private place where you can rest with your legs open and your knees bent. Some women like to lean on pillows for back support. Lubricate your thumbs and the perineal tissues. Use a lubricant such as vitamin E oil, coconut oil, almond oil, or any vegetable oil used for cooking--like olive oil. You may also try a water?soluble jelly, such as K?Y jelly, or your body's natural vaginal lubricant. Do not use baby oil, mineral oil, or petroleum jelly (Vaseline). Place your thumbs about 1 to 1.5 inches inside your vagina (see Figure 1). Press down (toward the anus) and to the sides until you feel a slight burning, stretching sensation. Hold that stretched position for 1 or 2 minutes. With your thumbs, slowly massage the lower half of the vagina using a U?shaped movement for 2 to 3 minutes at most. Concentrate on relaxing your muscles. This is a good time to practice slow, deep breathing techniques. Partners: If your partner is doing the perineal massage, follow the same basic instructions above. However, your partner should use his or her index fingers to do the massage (instead of thumbs). The same side?to?side, U?shaped, downward pressure method should be used. Good communication is important--be sure to tell your partner if you have too much pain or burning! Figure 1 1 Perineal Massage Flesch?Ridgely Grade Level: 7.2 Approved March 2015. This handout replaces Perineal Massage in published in Volume 50, Issue 1, Mar/Apr 2004 Preparing for labor: Eat dates to promote spontaneous labor! Has an oxytocin-like effect on the body, leading to increased sensitivity of the uterus. Stimulates uterine contractions. Reduces hemorrhage the way oxytocin does. Date fruit contains saturated and unsaturated fatty acids such as oleic, linoleic, and linolenic acids, which are involved in saving and supplying energy and construction of prostaglandins. In addition, serotonin, tannin, and calcium in date fruit contribute to the contraction of smooth muscles of the uterus. Date fruit also has a laxative effect, which stimulates uterine contractions. Six dates per day is the magic number--provided that you re eating smaller deglet noor dates. Deglet noor dates are about 1 inch long. Medjool dates can be up to 2 inches long. If you re eating medjool dates, you only need about 3 dates to reach the 75 grams recommended in the studies. Not sure which type of date you have in your refrigerator? It s probably a deglet noor. How to Eat Dates During Dates are a healthy and delicious snack, so how can you add them to your diet? Add dates during in this awesome oatmeal recipe. Add dates to replace sugar in your favorite recipe or to néstor your homemade almond milk. Use dates and nuts to make an easy pie crust in the dry food products mixer. Add soaked dates to homemade nut butter for a sweet treat. Add dates to néstor homemade salad dressing. Add dates during easily with these yummy (paleo friendly) bars made from dates. What Is Red Raspberry [place] Tea? Red raspberry leaf tea comes from the leaves of the red raspberry plant. This herbal tea has been used for centuries to support respiratory, digestive and uterine health, particularly during and childbearing years. While usually known as a female herb, red raspberry leaf tea can also help support the prostate and various stomach ailments in children. How It Can Help and Red raspberry leaf tea can help to make labor faster and reduce complications and interventions during . One study found that women who consumed RRL tea regularly are less likely to go overdue or give prematurely. These women may also be less likely to receive an artificial rupture of their membranes or require a section, forceps, or vacuum than the women in the control group. Red raspberry leaf has many other benefits to , , and too. How Much Red Raspberry [place] Tea to Drink? With your doctor or senior process engineer s approval, start with 1 cup of red raspberry leaf tea per day starting in the second trimester. Watch for any uterine cramping or other reactions. If you don t experience any, you can talk to your healthcare provider about increasing to 2 cups per day. Again, watch for any uterine cramping. If you notice any, cut back on your dosage for two weeks and try again. Keep in mind, some moms have irritable uteruses and can only drink red raspberry leaf tea once they reach their due date because of uterine cramping. Is Red Raspberry [place] Tea the Same as Raspberry [place] Tea? How About Plain Old Raspberry Tea? Sometimes. You really need to look at the ingredients to be sure. Note that there is no difference between red raspberry leaf and raspberry leaf. [employer] or [employer] Raspberry [place] Tea are two good brands. The red raspberry leaf teas that we recommend are 100% red raspberry leaf. Other teas labeled as raspberry are often a blend of rosehips, hibiscus, raspberry leaves, and raspberry flavor. So they may not be as effective. The teas to avoid are raspberry-flavored herbal teas, which may have ingredients like hibiscus, austin hips, apples, elderberries, natural and artificial raspberry flavors. Teas like this don t contain raspberry leaf at all and thus won t offer any of the potential benefits of RRLT outlined in this article. The [employer] www.[employer] I named this 'circuit' after my friend Prerna Ray, who shared and discussed it with me when I was working with a client whose labor seemed to be stalled out and no longer progressing... This circuit is useful to help get the baby lined up, ideally, in the Left Occiput Anterior (TIA) Position, both before labor begins and when some corrections need to be done during labor. Prenatally, this position set can help to rotate a baby. As a natural method of induction, this can help get things going if baby just needed a gentle nudge of position to set things off. To the best of my knowledge, this group of positions will not hurt a baby that is already lined up correctly. - Kathy Issa Before you Begin..... This circuit takes at least 90 minutes to complete so clear your schedule and make mental preparations so you can relax in your environment. The second step requires a lot of pillows so gather them up before beginning Before starting, you should empty your bladder! Have a nice drink nearby, and make sure it has a straw! If you are having contractions, this circuit should bedone through contractions, try not to change positions between steps Step One: Open-knee Chest Stay in this position for 30 minutes, start in cat/cow, then drop your chest as low as you can to the bed or the floor and your bottom as high as you can. Knees should be fairly wide apart, and the angle between the torso/thighs should be wider than 90 degrees. Wiggle around, prop with lots of pillows and use this time to get totally relaxed. This position allows the baby to scoot out of the pelvis a bit and gives them room to rotate, shift their head position, etc. If the person finds it helpful,careful positioning with a rebozo under the belly, with gentle tension from a support person behindcan help maintain this position for the full 30minutes. Step Two: Exaggerated Left Side Lying Roll to your left side, bringing your top leg as high as possible and keeping your bottom leg straight. Roll forward as much as possible,again using a lot of pillows. Sink into the bed and relax some more. If you fall asleep, that's totally okay and you can stay there! If not, stay here for at least another half an hour. Try and get your top right leg up towards your head and get as rolled over onto your belly as much as possible. If you repeat the circuit during labor, try alternating left and right sides. We know the photo the left is actually right side... just flip the image in your head. Step Three: Moving and Lunges Lunge, walk stairs facing sideways, 2 at a time, (have a plumber assistant downstairs of you!), take a walk outside with one foot on the curb and the other on the street, sit on a ball and hula- anything that's upright and putting your pelvis in open, asymmetrical positions. Spend at least 30 minutes doing this one as well to give your baby a chance to move down. If you are lunging or stair or curb walking, you should lunge/walk/go up stairs in the direction that feels better to you. The cam with the lunge is that the toes of the higher leg and mom's belly button should be at right angles. Do not lunge over your knee, that closes the pelvis. Prerna Ray: Circuit Creator - www.[employer] Wirelesundbirthcollective.Welltheon Kathy Issa CD, BDT (GEOFFREY), LCCE, FACCE: Supporting Content - www.kathyTexas Sustainable Energy Research InstituteemilMagna [employer] Sophie Lam: Photography - www.[email or web address] Yadi Ferrera CD/CDT (LAURENT): Print and Emblem Drawer In - www.[employer] Circuit Masterminds The Seamless Circuit www.CultureIQ SIGNS AND SYMPTOMS OF LABOR 1. Contractions every 10 minutes or more often 2. Clear, pink, or brownish fluid (water) leaking from vagina 3. Feeling that baby is pushing down, pressure 4. Low, dull backache 5. Cramps that feel like a period 6. Cramps with or without diarrhea If you notice any of the above symptoms, contact our office at [phone] and ask to speak with a nurse. After hours, you can call doctors registry at [phone] OR call [facility] at [phone] and ask to have the doctor environmental property assessor paged. If you consider this an emergency, dial 9-1-1 or go to your nearest emergency department. NEED HELP? Are you dealing with a violent or abusive relationship? Are you a victim of rape or sexual assult? Call [facility] ([place]) 24 hour Crisis Hotline: 420.768.1770 or 232-458-3582. MANUAL Your Guide to a Healthy manual is now on-line. Visit [email or web address] ncyGuide to download your free copy documented in this encounter [facility] 07-06-2024 Progress note Formatting of t his note might be different from the original. S: Lynette Barrientos is a 29 year old female who presents at 33 weeks for a routine visit. Positive movements. Denies headache, visual changes, chest pain, shortness of breath, vaginal bleeding, leakage of fluid, or dysuria. Feeling well, no complaints. O: See flow sheet Gen: No apparent distress Abd: Gravid, nontender S=D ASSESSMENT/PLAN: 1. Encounter for supervision of normal first in third trimester 2. 33 weeks gestation of - Continue vitamin/ ASA - PTL precautions and kick counts reviewed - RTO 2 weeks Taylor King APRN.CNM [facility] Work Phone: 07-06-2024 Miscellaneous Notes S: Lynette Barrientos is a 29 year old female who presents at 33 weeks for a routine visit. Positive movements. Denies headache, visual changes, chest pain, shortness of breath, vaginal bleeding, leakage of fluid, or dysuria. Feeling well, no complaints. O: See flow sheet Gen: No apparent distress Abd: Gravid, nontender S=D ASSESSMENT/PLAN: 1. Encounter for supervision of normal first in third trimester 2. 33 weeks gestation of - Continue vitamin/ ASA - PTL precautions and kick counts reviewed - RTO 2 weeks Taylor King APRN.CNM documented in this encounter [facility] 07-06-2024 Ke Fang MA - 07/06/2024 4:26 PM EDT SEQUENTIAL SCREENINGS The [facility] offers sequential screenings for women who are interested in screenings for chromosomal abnormalities and certain defects during a . The sequential screen combines ultrasound and blood tests to determine the risk of chromosomal abnormalities, including Down's Syndrome (Trisomy 21) and Trisomy 18, as well as open neural tube defects including spina bifida. Ultrasound examination is performed between 11 weeks and 13 weeks gestational age. Blood tests are drawn after the ultrasound and again later in the between 15 and 21 weeks gestational age. Please let your physician know if you are interested in this testing. It will require an appointment with our nail technician. This is not an ultrasound performed by a physician in our office during a routine visit. SIGNS AND SYMPTOMS OF LABOR 1. Contractions every 10 minutes or more often 2. Clear, pink, or brownish fluid (water) leaking from vagina 3. Feeling that baby is pushing down, pressure 4. Low, dull backache 5. Cramps that feel like a period 6. Cramps with or without diarrhea If you notice any of the above symptoms, contact our office at [phone] and ask to speak with a nurse. After hours, you can call doctors registry at [phone] OR call [facility] at [phone] and ask to have the doctor environmental property assessor paged. If you consider this an emergency, dial 9-1-6 or go to your nearest emergency department. NEED HELP? Are you dealing with a violent or abusive relationship? Are you a victim of rape or sexual assult? Call [facility] ([place]) 24 hour Crisis Hotline: 878.264.8027 or 608-385-1562. MANUAL Your Guide to a Healthy manual is now on-line. Visit [email or web address] ncyGuide to download your free copy documented in this encounter [facility] 06-22-2024 Progress note Formatting of t his note might be different from the original. SW- No pain, vb, lof. Good FM PE: Gen- NAD, well appearing Abd- Soft, gravid, NT, S=D See flowsheet A/p 31 wk gestation - Reviewed upcoming expectations - RTO 2 wks Mary Shin DO [facility] 06-22-2024 Miscellaneous Notes SW- No pain, vb, lof. Good FM PE: Gen- NAD, well appearing Abd- Soft, gravid, NT, S=D See flowsheet A/p 31 wk gestation - Reviewed upcoming expectations - RTO 2 wks Mary Shin DO documented in this encounter [facility] 06-22-2024 Instructions Lencho, RamonaMARGARET - 06/22/2024 3:48 PM EDT SEQUENTIAL SCREENINGS The [facility] offers sequential screenings for women who are interested in screenings for chromosomal abnormalities and certain defects during a . The sequential screen combines ultrasound and blood tests to determine the risk of chromosomal abnormalities, including Down's Syndrome (Trisomy 21) and Trisomy 18, as well as open neural tube defects including spina bifida. Ultrasound examination is performed between 11 weeks and 13 weeks gestational age. Blood tests are drawn after the ultrasound and again later in the between 15 and 21 weeks gestational age. Please let your physician know if you are interested in this testing. It will require an appointment with our nail technician. This is not an ultrasound performed by a physician in our office during a routine visit. SIGNS AND SYMPTOMS OF LABOR 1. Contractions every 10 minutes or more often 2. Clear, pink, or brownish fluid (water) leaking from vagina 3. Feeling that baby is pushing down, pressure 4. Low, dull backache 5. Cramps that feel like a period 6. Cramps with or without diarrhea If you notice any of the above symptoms, contact our office at [phone] and ask to speak with a nurse. After hours, you can call doctors registry at [phone] OR call [facility] at [phone] and ask to have the doctor environmental property assessor paged. If you consider this an emergency, dial 11-16- or go to your nearest emergency department. NEED HELP? Are you dealing with a violent or abusive relationship? Are you a victim of rape or sexual assult? Call [facility] ([place]) 24 hour Crisis Hotline: 382.904.7285 or 793-169-1094. MANUAL Your Guide to a Healthy manual is now on-line. Visit [email or web address] ncyGuide to download your free copy documented in this encounter [facility] 06-09-2024 Progress note Formatting of t his note might be different from the original. S: Lynette Barrientos is a 29 year old female who presents at 08/21/2024, by Last Menstrual Period for a routine visit. Denies headache, visual changes, chest pain, shortness of breath, vaginal bleeding, leakage of fluid, or dysuria. Feeling well, no complaints. Good movement, No contractions O: See flow sheet Gen: No apparent distress Abd: Gravid, nontender S/p rhogam Normal GCT ASSESSMENT/PLAN: 1. Encounter for supervision of normal first in second trimester - ICD9: V22.0, ICD10: Z34.02 (primary diagnosis) 2. Rh negative state in antepartum period - ICD9: 646.83, ICD10: O26.899, Z67.91 Completed rhogam 3. 29 weeks gestation of - ICD9: V22.2, ICD10: Z3A.29 Beata Dahl MD [facility] 06-09-2024 Miscellaneous Notes S: Lynette Barrientos is a 29 year old female who presents at 08/21/2024, by Last Menstrual Period for a routine visit. Denies headache, visual changes, chest pain, shortness of breath, vaginal bleeding, leakage of fluid, or dysuria. Feeling well, no complaints. Good movement, No contractions O: See flow sheet Gen: No apparent distress Abd: Gravid, nontender S/p rhogam Normal GCT ASSESSMENT/PLAN: 1. Encounter for supervision of normal first in second trimester - ICD9: V22.0, ICD10: Z34.02 (primary diagnosis) 2. Rh negative state in antepartum period - ICD9: 646.83, ICD10: O26.899, Z67.91 Completed rhogam 3. 29 weeks gestation of - ICD9: V22.2, ICD10: Z3A.29 Beata Dahl MD documented in this encounter [facility] 06-09-2024 Instructions Avelina Sauceda MA - 06/09/2024 11:05 AM EDT SEQUENTIAL SCREENINGS The [facility] offers sequential screenings for women who are interested in screenings for chromosomal abnormalities and certain defects during a . The sequential screen combines ultrasound and blood tests to determine the risk of chromosomal abnormalities, including Down's Syndrome (Trisomy 21) and Trisomy 18, as well as open neural tube defects including spina bifida. Ultrasound examination is performed between 11 weeks and 13 weeks gestational age. Blood tests are drawn after the ultrasound and again later in the between 15 and 21 weeks gestational age. Please let your physician know if you are interested in this testing. It will require an appointment with our nail technician. This is not an ultrasound performed by a physician in our office during a routine visit. SIGNS AND SYMPTOMS OF LABOR 1. Contractions every 10 minutes or more often 2. Clear, pink, or brownish fluid (water) leaking from vagina 3. Feeling that baby is pushing down, pressure 4. Low, dull backache 5. Cramps that feel like a period 6. Cramps with or without diarrhea If you notice any of the above symptoms, contact our office at [phone] and ask to speak with a nurse. After hours, you can call doctors registry at [phone] OR call [facility] at [phone] and ask to have the doctor environmental property assessor paged. If you consider this an emergency, dial 9-1-4 or go to your nearest emergency department. NEED HELP? Are you dealing with a violent or abusive relationship? Are you a victim of rape or sexual assult? Call [facility] ([facility] 24 hour Crisis Hotline: 998.952.9581 or 234-627-0729. MANUAL Your Guide to a Healthy manual is now on-line. Visit [email or web address] ncyGuide to download your free copy documented in this encounter [facility] 05-27-2024 Note HNO ID: [id number] Author: BEATA BAGLEY RN Service: ? Author Type: Registered Nurse Type: Progress Notes Filed: 05/27/2024 11:34 Note Text: Lynette Barrientos 29 year old is here for her injection of Rhophylac. Lynette Vergaraach is A Negative Rhophylac was given without incident. See immunizations for details of immunizations administered today. Provider Malia Romero CNM was present in office at time of injection Lynette Barrientos was given her Rhophylac pocket card. Beata Bagley RN [facility] 05-27-2024 History of Present illness Narrative Lynette Barrientos 29 year old is here for her injection of Rhophylac. Lynette Vergaraach is A Negative Rhophylac was given without incident. See immunizations for details of immunizations administered today. Provider Malia Romero CNM was present in office at time of injection Lynette Barrientos was given her Rhophylac pocket card. Beata Bagley RN documented in this encounter [facility] 05-27-2024 Progress note Formatting of t his note might be different from the original. AIDA-S: Lynette Barrientos is a 29 year old female who presents at 27w5d with KILEY:08/21/2024, by Last Menstrual Period for a routine visit. Denies headache, visual changes, chest pain, shortness of breath, vaginal bleeding, leakage of fluid, or dysuria. Feeling well, no complaints. O: See flow sheet Gen: No apparent distress Abd: Gravid, nontender ASSESSMENT/PLAN: 1. Encounter for supervision of normal first in second trimester - 1 hour GCT, CBC, and RPR today - Rh negative- A negative - TDAP today - LARC form reviewed and signed. Patient declines - Depression screen negative - Opioid screen negative - plan form discussed and given to patient. Patient desires unmedicated 2. 27 weeks gestation of PTL precautions reviewed and when to call RTO in 2 weeks Malia Romero APRN.CNM [facility] [place] 05-27-2024 Miscellaneous Notes AIDA-S: Lynette Barrientos is a 29 year old female who presents at 27w5d with KILEY:08/21/2024, by Last Menstrual Period for a routine visit. Denies headache, visual changes, chest pain, shortness of breath, vaginal bleeding, leakage of fluid, or dysuria. Feeling well, no complaints. O: See flow sheet Gen: No apparent distress Abd: Gravid, nontender ASSESSMENT/PLAN: 1. Encounter for supervision of normal first in second trimester - 1 hour GCT, CBC, and RPR today - Rh negative- A negative - TDAP today - LARC form reviewed and signed. Patient declines - Depression screen negative - Opioid screen negative - plan form discussed and given to patient. Patient desires unmedicated 2. 27 weeks gestation of PTL precautions reviewed and when to call RTO in 2 weeks Malia Romero APRN.CNM documented in this encounter [facility] 05-27-2024 Ke Fang MA - 05/27/2024 10:36 AM EDT SEQUENTIAL SCREENINGS The [facility] offers sequential screenings for women who are interested in screenings for chromosomal abnormalities and certain defects during a . The sequential screen combines ultrasound and blood tests to determine the risk of chromosomal abnormalities, including Down's Syndrome (Trisomy 21) and Trisomy 18, as well as open neural tube defects including spina bifida. Ultrasound examination is performed between 11 weeks and 13 weeks gestational age. Blood tests are drawn after the ultrasound and again later in the between 15 and 21 weeks gestational age. Please let your physician know if you are interested in this testing. It will require an appointment with our nail technician. This is not an ultrasound performed by a physician in our office during a routine visit. SIGNS AND SYMPTOMS OF LABOR 1. Contractions every 10 minutes or more often 2. Clear, pink, or brownish fluid (water) leaking from vagina 3. Feeling that baby is pushing down, pressure 4. Low, dull backache 5. Cramps that feel like a period 6. Cramps with or without diarrhea If you notice any of the above symptoms, contact our office at [phone] and ask to speak with a nurse. After hours, you can call doctors registry at [phone] OR call [facility] at [phone] and ask to have the doctor environmental property assessor paged. If you consider this an emergency, dial 9--6 or go to your nearest emergency department. NEED HELP? Are you dealing with a violent or abusive relationship? Are you a victim of rape or sexual assult? Call [facility] ([place]) 24 hour Crisis Hotline: 776.622.3240 or 303-197-8260. MANUAL Your Guide to a Healthy manual is now on-line. Visit [email or web address] to download your free copy documented in this encounter [facility] 05-01-2024 Progress note Formatting of t his note might be different from the original. S: Lynette Barrientos is a 29 year old female who presents at 08/21/2024, by Last Menstrual Period for a routine visit. Denies headache, visual changes, chest pain, shortness of breath, vaginal bleeding, leakage of fluid, or dysuria. Feeling well, no complaints. Good movement, No contractions O: See flow sheet Gen: No apparent distress Abd: Gravid, nontender GCT and Rhogam next visit ASSESSMENT/PLAN: 1. 24 weeks gestation of - ICD9: V22.2, ICD10: Z3A.24 (primary diagnosis) - SYPHILIS TREPONEMAL W/REFLEX - ANEMIA REFLEX PANEL 2. Screening for diabetes mellitus - ICD9: V77.1, ICD10: Z13.1 - GESTATIONAL GLUCOSE SCREEN, 1-HOUR, 50 GRAM, NON-FASTING 3. Supervision of other normal , antepartum - ICD9: V22.1, ICD10: Z34.80 - TYPE + SCREEN Beata Dahl MD [facility] 05-01-2024 Miscellaneous Notes S: Lynette Barrientos is a 29 year old female who presents at 08/21/2024, by Last Menstrual Period for a routine visit. Denies headache, visual changes, chest pain, shortness of breath, vaginal bleeding, leakage of fluid, or dysuria. Feeling well, no complaints. Good movement, No contractions O: See flow sheet Gen: No apparent distress Abd: Gravid, nontender GCT and Rhogam next visit ASSESSMENT/PLAN: 1. 24 weeks gestation of - ICD9: V22.2, ICD10: Z3A.24 (primary diagnosis) - SYPHILIS TREPONEMAL W/REFLEX - ANEMIA REFLEX PANEL 2. Screening for diabetes mellitus - ICD9: V77.1, ICD10: Z13.1 - GESTATIONAL GLUCOSE SCREEN, 1-HOUR, 50 GRAM, NON-FASTING 3. Supervision of other normal , antepartum - ICD9: V22.1, ICD10: Z34.80 - TYPE + SCREEN Beata Dahl MD documented in this encounter [facility] 05-01-2024 Instructions Ramona Musa MA - 05/01/2024 3:47 PM EST SEQUENTIAL SCREENINGS The [facility] offers sequential screenings for women who are interested in screenings for chromosomal abnormalities and certain defects during a . The sequential screen combines ultrasound and blood tests to determine the risk of chromosomal abnormalities, including Down's Syndrome (Trisomy 21) and Trisomy 18, as well as open neural tube defects including spina bifida. Ultrasound examination is performed between 11 weeks and 13 weeks gestational age. Blood tests are drawn after the ultrasound and again later in the between 15 and 21 weeks gestational age. Please let your physician know if you are interested in this testing. It will require an appointment with our nail technician. This is not an ultrasound performed by a physician in our office during a routine visit. SIGNS AND SYMPTOMS OF LABOR 1. Contractions every 10 minutes or more often 2. Clear, pink, or brownish fluid (water) leaking from vagina 3. Feeling that baby is pushing down, pressure 4. Low, dull backache 5. Cramps that feel like a period 6. Cramps with or without diarrhea If you notice any of the above symptoms, contact our office at [phone] and ask to speak with a nurse. After hours, you can call doctors registry at [phone] OR call [facility] at [phone] and ask to have the doctor environmental property assessor paged. If you consider this an emergency, dial 9--5 or go to your nearest emergency department. NEED HELP? Are you dealing with a violent or abusive relationship? Are you a victim of rape or sexual assult? Call [facility] ([place]) 24 hour Crisis Hotline: 862.621.1703 or 678-083-0711. MANUAL Your Guide to a Healthy manual is now on-line. Visit [email or web address] to download your free copy documented in this encounter [facility] 04-03-2024 Progress note Formatting of t his note might be different from the original. KJ - VB No. LOF No. CTXS No. Movement: present. Other c/o: No. Medication list reviewed. Physical Exam See Flow Sheet Gen: no accute distress, well appearing A/P 20w0d Estimated Date of Delivery: 08/21/24 Anatomy US today Kevin Bradford MD [facility] 04-03-2024 Miscellaneous Notes KJ - VB No. LOF No. CTXS No. Movement: present. Other c/o: No. Medication list reviewed. Physical Exam See Flow Sheet Gen: no accute distress, well appearing A/P 20w0d Estimated Date of Delivery: 08/21/24 Anatomy US today Kevin Bradford MD documented in this encounter [facility] 04-03-2024 Instructions Ramona Musa MA - 04/03/2024 8:32 AM EST SEQUENTIAL SCREENINGS The [facility] offers sequential screenings for women who are interested in screenings for chromosomal abnormalities and certain defects during a . The sequential screen combines ultrasound and blood tests to determine the risk of chromosomal abnormalities, including Down's Syndrome (Trisomy 21) and Trisomy 18, as well as open neural tube defects including spina bifida. Ultrasound examination is performed between 11 weeks and 13 weeks gestational age. Blood tests are drawn after the ultrasound and again later in the between 15 and 21 weeks gestational age. Please let your physician know if you are interested in this testing. It will require an appointment with our nail technician. This is not an ultrasound performed by a physician in our office during a routine visit. SIGNS AND SYMPTOMS OF LABOR 1. Contractions every 10 minutes or more often 2. Clear, pink, or brownish fluid (water) leaking from vagina 3. Feeling that baby is pushing down, pressure 4. Low, dull backache 5. Cramps that feel like a period 6. Cramps with or without diarrhea If you notice any of the above symptoms, contact our office at [phone] and ask to speak with a nurse. After hours, you can call doctors registry at [phone] OR call [facility] at [phone] and ask to have the doctor environmental property assessor paged. If you consider this an emergency, dial 9-1-1 or go to your nearest emergency department. NEED HELP? Are you dealing with a violent or abusive relationship? Are you a victim of rape or sexual assult? Call [facility] ([facility] 24 hour Crisis Hotline: 127.444.9671 or 303-772-0915. MANUAL Your Guide to a Healthy manual is now on-line. Visit [email or web address] ncyGuide to download your free copy documented in this encounter [facility] 03-13-2024 Telephone encounter Note Nausea associated with .Requesting Zofran [facility] 03-13-2024 Miscellaneous Notes Nausea associated with .Requesting Zofran documented in this encounter [facility] 03-12-2024 Telephone encounter Note Called Pt and appointments rescheduled. Yandel Santiago RN [facility] 03-12-2024 Miscellaneous Notes Called Pt and appointments rescheduled. Yandel Santiago RN documented in this encounter [facility] 03-10-2024 Progress note Formatting of t his note might be different from the original. SW- Pt doing well. No pain, vb, lof. NOB labs completed. Schedule anatomy US. RTO 4 wks. Mary Shin DO [facility] Work Phone: 03-10-2024 Miscellaneous Notes SW- Pt doing well. No pain, vb, lof. NOB labs completed. Schedule anatomy US. RTO 4 wks. Mary Shin DO documented in this encounter [facility] 03-10-2024 Instructions Ramona Musa MA - 03/10/2024 10:48 AM EST SEQUENTIAL SCREENINGS The [facility] offers sequential screenings for women who are interested in screenings for chromosomal abnormalities and certain defects during a . The sequential screen combines ultrasound and blood tests to determine the risk of chromosomal abnormalities, including Down's Syndrome (Trisomy 21) and Trisomy 18, as well as open neural tube defects including spina bifida. Ultrasound examination is performed between 11 weeks and 13 weeks gestational age. Blood tests are drawn after the ultrasound and again later in the between 15 and 21 weeks gestational age. Please let your physician know if you are interested in this testing. It will require an appointment with our nail technician. This is not an ultrasound performed by a physician in our office during a routine visit. SIGNS AND SYMPTOMS OF LABOR 1. Contractions every 10 minutes or more often 2. Clear, pink, or brownish fluid (water) leaking from vagina 3. Feeling that baby is pushing down, pressure 4. Low, dull backache 5. Cramps that feel like a period 6. Cramps with or without diarrhea If you notice any of the above symptoms, contact our office at [phone] and ask to speak with a nurse. After hours, you can call doctors registry at [phone] OR call [facility] at [phone] and ask to have the doctor environmental property assessor paged. If you consider this an emergency, dial 9--7 or go to your nearest emergency department. NEED HELP? Are you dealing with a violent or abusive relationship? Are you a victim of rape or sexual assult? Call [facility] ([place]) 24 hour Crisis Hotline: 261.338.9545 or 426-024-5759. MANUAL Your Guide to a Healthy manual is now on-line. Visit [email or web address] to download your free copy SEQUENTIAL SCREENINGS The [facility] offers sequential screenings for women who are interested in screenings for chromosomal abnormalities and certain defects during a . The sequential screen combines ultrasound and blood tests to determine the risk of chromosomal abnormalities, including Down's Syndrome (Trisomy 21) and Trisomy 18, as well as open neural tube defects including spina bifida. Ultrasound examination is performed between 11 weeks and 13 weeks gestational age. Blood tests are drawn after the ultrasound and again later in the between 15 and 21 weeks gestational age. Please let your physician know if you are interested in this testing. It will require an appointment with our nail technician. This is not an ultrasound performed by a physician in our office during a routine visit. SIGNS AND SYMPTOMS OF LABOR 1. Contractions every 10 minutes or more often 2. Clear, pink, or brownish fluid (water) leaking from vagina 3. Feeling that baby is pushing down, pressure 4. Low, dull backache 5. Cramps that feel like a period 6. Cramps with or without diarrhea If you notice any of the above symptoms, contact our office at [phone] and ask to speak with a nurse. After hours, you can call doctors registry at [phone] OR call [facility] at [phone] and ask to have the doctor environmental property assessor paged. If you consider this an emergency, dial 9--9 or go to your nearest emergency department. NEED HELP? Are you dealing with a violent or abusive relationship? Are you a victim of rape or sexual assult? Call [facility] ([place]) 24 hour Crisis Hotline: 792.283.4481 or 890-296-7614. MANUAL Your Guide to a Healthy manual is now on-line. Visit [email or web address] to download your free copy documented in this encounter [facility] 02-17-2024 Telephone encounter Note Copy of episode sent to L&D including external lab results attached below. Yandel Santiago RN [facility] 02-17-2024 Miscellaneous Notes Copy of episode sent to L&D including external lab results attached below. Yandel Santiago RN HIV negative. Please update record. Malia Romero APRN.CNM View External Labs - Chemistry [ID [id number]] Spoke with [facility] lab. This will take several days with the holiday. It should be sent out to [facility] today. Beata Bagley RN Can you please get confirmation screen from lab or see when will be expected. Thank you, Malia Romero APRN.CNM Results scanned to patient chart. Will forward message to cloth brushing and sueding supervisor provider, per PCP request. Payton Paris LPN Please obtain these lab results and forward to OBGYN Lorenzo Del Toro DO Paged to [facility] about critical value. Preliminary HIV + and will be getting conformation Forwarding to PCP to address documented in this encounter [facility] 02-17-2024 Telephone encounter Note HIV negative. Please update record. Malia Romero APRN.CNM [facility] 02-17-2024 Telephone encounter Note View External Labs - Chemistry [ID [id number]] [facility] 02-14-2024 Progress note Formatting of t his note might be different from the original. S: Lynette Barrientos is a 29 year old female who presents at 08/21/2024, by Last Menstrual Period for a routine visit. Denies headache, visual changes, chest pain, shortness of breath, vaginal bleeding, leakage of fluid, or dysuria. Feeling well, no complaints. Nausea better O: See flow sheet Gen: No apparent distress Declined NIPT ASSESSMENT/PLAN: 1. 13 weeks gestation of - ICD9: V22.2, ICD10: Z3A.13 (primary diagnosis) 2. Encounter for supervision of normal first in second trimester - ICD9: V22.0, ICD10: Z34.02 Beata Dahl MD [facility] 02-14-2024 Miscellaneous Notes S: Lynette Barrientos is a 29 year old female who presents at 08/21/2024, by Last Menstrual Period for a routine visit. Denies headache, visual changes, chest pain, shortness of breath, vaginal bleeding, leakage of fluid, or dysuria. Feeling well, no complaints. Nausea better O: See flow sheet Gen: No apparent distress Declined NIPT ASSESSMENT/PLAN: 1. 13 weeks gestation of - ICD9: V22.2, ICD10: Z3A.13 (primary diagnosis) 2. Encounter for supervision of normal first in second trimester - ICD9: V22.0, ICD10: Z34.02 Beata Dahl MD documented in this encounter [facility] 02-14-2024 Maki Joyner LPN - 02/14/2024 8:55 AM EST SEQUENTIAL SCREENINGS The [facility] offers sequential screenings for women who are interested in screenings for chromosomal abnormalities and certain defects during a . The sequential screen combines ultrasound and blood tests to determine the risk of chromosomal abnormalities, including Down's Syndrome (Trisomy 21) and Trisomy 18, as well as open neural tube defects including spina bifida. Ultrasound examination is performed between 11 weeks and 13 weeks gestational age. Blood tests are drawn after the ultrasound and again later in the between 15 and 21 weeks gestational age. Please let your physician know if you are interested in this testing. It will require an appointment with our nail technician. This is not an ultrasound performed by a physician in our office during a routine visit. SIGNS AND SYMPTOMS OF LABOR 1. Contractions every 10 minutes or more often 2. Clear, pink, or brownish fluid (water) leaking from vagina 3. Feeling that baby is pushing down, pressure 4. Low, dull backache 5. Cramps that feel like a period 6. Cramps with or without diarrhea If you notice any of the above symptoms, contact our office at [phone] and ask to speak with a nurse. After hours, you can call doctors registry at [phone] OR call [facility] at [phone] and ask to have the doctor environmental property assessor paged. If you consider this an emergency, dial 11-16-4 or go to your nearest emergency department. NEED HELP? Are you dealing with a violent or abusive relationship? Are you a victim of rape or sexual assult? Call [facility] ([place]) 24 hour Crisis Hotline: 479.986.3785 or 929-503-0799. MANUAL Your Guide to a Healthy manual is now on-line. Visit [email or web address] ncyGuide to download your free copy documented in this encounter [facility] 02-14-2024 Telephone encounter Note Please file NT u/s order for today's appt. Adelina Freeman RN [facility] 02-14-2024 Miscellaneous Notes Please file NT u/s order for today's appt. Adelina Freeman RN documented in this encounter [facility] 02-12-2024 Telephone encounter Note Spoke with [facility] lab. This will take several days with the holiday. It should be sent out to [facility] today. Beata Bagley RN [facility] 02-12-2024 Telephone encounter Note Can you please get confirmation screen from lab or see when will be expected. Thank you, Malia Romero APRN.CNM [facility] 02-12-2024 Telephone encounter Note Results scanned to patient chart. Will forward message to cloth brushing and sueding supervisor provider, per PCP request. Payton Paris LPN [facility] 02-12-2024 Telephone encounter Note Please obtain these lab results and forward to OBGYN Lorenzo Del Toro DO [facility] 02-11-2024 Telephone encounter Note Paged to [facility] about critical value. Preliminary HIV + and will be getting conformation Forwarding to PCP to address [facility] Work Phone: 01-21-2024 Note HNO ID: [id number] Author: LORENZO DEL TORO DO Service: ? Author Type: Physician Type: Progress Notes Filed: 01/21/2024 13:58 Note Text: CC: Lynette Barrientos is a 29 year old female who presents to the office for physical HPI: She is overall doing well She was engaged and in the last year. She is 9 weeks 4 days at this time with her first child. She is very excited to be a mother and denies any new concerns. She is taking vitamins. No recent issues. PAST MEDICAL HISTORY Diagnosis Date PMH - PAST MEDICAL HISTORY OF 10/20/2001 normal color vision 10/2001 PAST SURGICAL HISTORY Procedure Laterality Date EXTRACTION, ERUPTED TOOTH OR EXPOSED ROOT (ELEVATION AND/OR FORCEPS REMOVAL) 2013 PAST SURGICAL HISTORY OF wisdom teeth Social History: Social History Tobacco Use Smoking status: Never Smokeless tobacco: Never Vaping Use Vaping status: Never Used Substance Use Topics Alcohol use: Yes Comment: socially/rare Drug use: No FAMILY HISTORY Problem Relation Age of Onset Hypertension Father other (Other) Father retinopathy Hyperlipidemia Father Asthma Sister No Known Problems Brother Cancer Maternal Grandfather hodgkins and prostate other (Pulmonary Fibrosis) Paternal Grandmother Diabetes Paternal Grandfather Heart Paternal Grandfather Asthma Maternal Uncle Current Outpatient prescriptions: aspirin, enteric coated (ECOTRIN LOW STRENGTH) 81 mg EC tablet Take 1 tablet by mouth once daily. 25/iron fum/folic/dha (-1 ORAL) Take 1 tablet by mouth once daily. cholecalciferol (VITAMIN D3) 1,000 unit tab tablet Take 1 tablet by mouth once daily. Allergies: ALLERGIES No Known Allergies ROS: See HIP PE: 01/21/24 1309 BP: 110/70 Pulse: 88 Resp: 12 Temp: 36.3 ?C (97.4 ?F) TempSrc: Temporal Weight: 66 kg (145 lb 8.1 oz) Height: 169 cm (5' 6.54) Gen: AANDO, NAD, non-toxic appearing, Pleasant, cooperative HEENT: NT/AC, PERRLA, EOMs intact b/l, nares clear and patent b/l, pharynx without erythema, exudate or lesions. MMM, Uvula midline. EACs without erythema or debris. TMs pearly floyd with intact landmarks b/l. Neck: supple, No cervical LAD, no thyromegaly, no carotid bruits CV: RRR, normal S1 and S2, no murmurs, no gallops, no rubs, Pulses 2+ and symmetric in UE and LE b/l Lungs: normal respiratory effort, CTA b/l, no wheezing or rhonchi or rales Abd: soft, NT, ND, +BS, no hepatosplenomegaly MS: FROM all 4 extremities Neuro: CN II-XII intact b/l, strength 5/5 b/l UE and LE, DTRs 2/4 UE and LE, sensation intact. Skin: warm, dry, intact, No rashes or lesions on exposed skin. No edema, normal pulses ASSESSMENT/PLAN: 1. Well adult exam - ICD9: V70.0, ICD10: Z00.00 (primary diagnosis) - Counseled on healthy diet and regular exercise - VITAMIN D 25 HYDROXY - THYROID STIMULATING HORMONE - T4 FREE/FREE THYROXINE - T3, FREE 2. 9 weeks gestation of - ICD9: V22.2, ICD10: Z3A.09 Continue follow up with OBGYN Lorenzo Del Toro DO To ER if develops chest pain, shortness of breath, or severe worsening of symptoms. Discussed risks, benefits, alternatives, and potential side effects of medications. Patient expressed understanding and agreed with the plan. Lorenzo Del Toro DO [address] [place] [address] [facility] 01-21-2024 History of Present illness Narrative CC: Lynette Barrientos is a 29 year old female who presents to the office for physical HPI: She is overall doing well She was engaged and in the last year. She is 9 weeks 4 days at this time with her first child. She is very excited to be a mother and denies any new concerns. She is taking vitamins. No recent issues. PAST MEDICAL HISTORY Diagnosis Date PMH - PAST MEDICAL HISTORY OF 10/20/2001 normal color vision 10/2001 PAST SURGICAL HISTORY Procedure Laterality Date EXTRACTION, ERUPTED TOOTH OR EXPOSED ROOT (ELEVATION AND/OR FORCEPS REMOVAL) 2014 PAST SURGICAL HISTORY OF wisdom teeth Social History: Social History Tobacco Use Smoking status: Never Smokeless tobacco: Never Vaping Use Vaping status: Never Used Substance Use Topics Alcohol use: Yes Comment: socially/rare Drug use: No FAMILY HISTORY Problem Relation Age of Onset Hypertension Father other (Other) Father retinopathy Hyperlipidemia Father Asthma Sister No Known Problems Brother Cancer Maternal Grandfather hodgkins and prostate other (Pulmonary Fibrosis) Paternal Grandmother Diabetes Paternal Grandfather Heart Paternal Grandfather Asthma Maternal Uncle Current Outpatient prescriptions: aspirin, enteric coated (ECOTRIN LOW STRENGTH) 81 mg EC tablet Take 1 tablet by mouth once daily. 25/iron fum/folic/dha (-1 ORAL) Take 1 tablet by mouth once daily. cholecalciferol (VITAMIN D3) 1,000 unit tab tablet Take 1 tablet by mouth once daily. Allergies: ALLERGIES No Known Allergies ROS: See HIP PE: 11/05/24 1309 BP: 110/70 Pulse: 88 Resp: 12 Temp: 36.3 C (97.4 F) TempSrc: Temporal Weight: 66 kg (145 lb 8.1 oz) Height: 169 cm (5' 6.54) Gen: A&O, NAD, non-toxic appearing, Pleasant, cooperative HEENT: NT/AC, PERRLA, EOMs intact b/l, nares clear and patent b/l, pharynx without erythema, exudate or lesions. MMM, Uvula midline. EACs without erythema or debris. TMs pearly floyd with intact landmarks b/l. Neck: supple, No cervical LAD, no thyromegaly, no carotid bruits CV: RRR, normal S1 and S2, no murmurs, no gallops, no rubs, Pulses 2+ and symmetric in UE and LE b/l Lungs: normal respiratory effort, CTA b/l, no wheezing or rhonchi or rales Abd: soft, NT, ND, +BS, no hepatosplenomegaly MS: FROM all 4 extremities Neuro: CN II-XII intact b/l, strength 5/5 b/l UE and LE, DTRs 2/4 UE and LE, sensation intact. Skin: warm, dry, intact, No rashes or lesions on exposed skin. No edema, normal pulses ASSESSMENT/PLAN: 1. Well adult exam - ICD9: V70.0, ICD10: Z00.00 (primary diagnosis) - Counseled on healthy diet and regular exercise - VITAMIN D 25 HYDROXY - THYROID STIMULATING HORMONE - T4 FREE/FREE THYROXINE - T3, FREE 2. 9 weeks gestation of - ICD9: V22.2, ICD10: Z3A.09 Continue follow up with OBGYN Lorenzo Del Toro DO To ER if develops chest pain, shortness of breath, or severe worsening of symptoms. Discussed risks, benefits, alternatives, and potential side effects of medications. Patient expressed understanding and agreed with the plan. Lorenzo Del Toro DO [address] [place] [address] documented in this encounter [facility] 01-07-2024 Progress note Formatting of t his note might be different from the original. -NOB visit. See progress note. LMP=US. Uncertain about NIPT and carrier screening. May have labs done at [facility] and will need Johanna order. NT US ordered. ASA at 12 wk. Malia Romero APRN.CNM [facility] 01-07-2024 Miscellaneous Notes -NOB visit. See progress note. LMP=US. Uncertain about NIPT and carrier screening. May have labs done at [facility] and will need Johanna order. NT US ordered. ASA at 12 wk. Malia Romero APRN.CNM documented in this encounter [facility] 01-07-2024 Note HNO ID: [id number] Author: MALIA ROMERO APRN.CNM Service: ? Author Type: Inter Com Servicer Type: Progress Notes Filed: 01/07/2024 10:02 Note Text: INITIAL OB ASSESSMENT Webbing Tacker offered: Patient declines. HPI: Lynette is a 29 year old White Female here to establish Obstetrical Care. Patient's last menstrual period was 11/15/2023. from OB Dating Form. was planned LMP 11/15/23, regular 27-29 days Complaints: No OB History T0 L0 SAB0 IAB0 Ectopic0 Multiple0 Live Births0 Previous history: Prior : never History of 4th degree laceration: Perineal Laceration, 3rd or 4th degree No History of shoulder dystocia: Shoulder Dystocia No History of Hypertensive disorders including pre-eclampsia or gestational hypertension: Gestational Hypertension No Preeclampsia No History of gestational diabetes: Diabetes in No Patient's Risk Screening for delivery: Have you had a prior torres between 20w and 36w6d? No How many pregnancies have you had before? 0 Did you have a previous baby with a GBS Infection? No Please select all that apply for any prior : N/A MEDICAL/PSYCHOSOCIAL HISTORY: Severe bleeding with delivery N/A Thyroid Disease No Gestational Hypertension N/A Preeclampsia N/A Diabetes in N/A BMI 23.47 kg/(m2) Last Pap: 01/04/2022 History of abnormal pap: Abnormal Pap No Prior treatment for cervical dysplasia: N/A. Last HPV: Completed series History of STDs: N/A Partner History of STDs: None Did you have a partner with Herpes? No Tobacco use: No E-Cigarette/Vaping Use: No Caffeine use: No Drug use: No Alcohol use: No Multivitamin with Folic acid: Yes Would refuse blood transfusion if medically necessary: No Social Needs: How often does this describe you? I don't have enough money to pay my bills: Never Within the past 12 months, have you worried that your food would run out before you had money to buy more? Never In the past 12 months, has lack of reliable transportation kept you from going to medical appointments or work, or from getting things needed for daily living? Never In the past 12 months, have you had any concerns about having a place to live, or about the condition or quality of your housing? Never Would you like more information on any of the following (please check all that apply)? Not interested Social History: Do you have any history of depression, anxiety, PTSD, or other mood problems? No Do you have a history of abuse or trauma that may impact your experience? No Are you currently employed? Yes Depression/Anxiety Screening: denies symptoms of depression. OB Depression and Anxiety Screening- This Encounter (since 01/06/2024) Over the past 2 weeks have you felt down, depressed, or hopeless? Negative Over the past two weeks, have you felt little interest or pleasure in doing things?? Negative Feeling nervous, anxious or on edge 0-Not at all Not being able to stop or control worrying 0-Not al all Anxiety Pre-Screening Total (If >/= 3 additional questions will be reviewed) 0 Genetic Screening: Partner present: Yes Patient verbalized knowledge of partner family health history: Yes Do you or your partner have any personal or family history of defects not previously discussed: Yes, Father's family, +Autism (nephew) Do you have history of a complicated by anomaly, genetic condition, or demise: No Low Dose ASA Screening: Screening for low dose aspirin use for the prevention of pre-eclampsia: High risk factors: None Moderate risk ractors: Nulliparity OB Risk Screening: Completed, no positive findings documented. 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 cholecalciferol (VITAMIN D3) 1,000 unit tab tablet Take 1 tablet by mouth once daily. 90 tablet 1 No current facility-administered medications for this visit. Allergies As of Date: 01/07/2024 (No Known Allergies) Fully Assessed 01/07/2024 Does patient have penicillin allergy: No REVIEW OF SYSTEMS: GENERAL: Negative for: Fever or Chills HEENT: Negative for: Headache, Impaired Vision, Ringing in Ears, Nosebleeds NECK: Negative for: Swelling, Pain, Stiffness RESPIRATORY: Negative for: Cough, Shortness of breath, Wheezing GASTROINTESTINAL: Negative for: Heartburn, Constipation, Diarrhea, Blood in stool, Vomiting MUSCULOSK (more content not included)... [facility] 01-07-2024 History of Present illness Narrative INITIAL OB ASSESSMENT Webbing Tacker offered: Patient declines. HPI: Lynette is a 29 year old White Female here to establish Obstetrical Care. Patient's last menstrual period was 11/15/2023. from OB Dating Form. was planned LMP 11/15/23, regular 27-29 days Complaints: No OB History T0 L0 SAB0 IAB0 Ectopic0 Multiple0 Live Births0 Previous history: Prior : never History of 4th degree laceration: Perineal Laceration, 3rd or 4th degree No History of shoulder dystocia: Shoulder Dystocia No History of Hypertensive disorders including pre-eclampsia or gestational hypertension: Gestational Hypertension No Preeclampsia No History of gestational diabetes: Diabetes in No Patient's Risk Screening for delivery: Have you had a prior torres between 20w and 36w6d? No How many pregnancies have you had before? 0 Did you have a previous baby with a GBS Infection? No Please select all that apply for any prior : N/A MEDICAL/PSYCHOSOCIAL HISTORY: Severe bleeding with delivery N/A Thyroid Disease No Gestational Hypertension N/A Preeclampsia N/A Diabetes in N/A BMI 23.47 kg/(m^2) Last Pap: 01/04/2022 History of abnormal pap: Abnormal Pap No Prior treatment for cervical dysplasia: N/A. Last HPV: Completed series History of STDs: N/A Partner History of STDs: None Did you have a partner with Herpes? No Tobacco use: No E-Cigarette/Vaping Use: No Caffeine use: No Drug use: No Alcohol use: No Multivitamin with Folic acid: Yes Would refuse blood transfusion if medically necessary: No Social Needs: How often does this describe you? I don't have enough money to pay my bills: Never Within the past 12 months, have you worried that your food would run out before you had money to buy more? Never In the past 12 months, has lack of reliable transportation kept you from going to medical appointments or work, or from getting things needed for daily living? Never In the past 12 months, have you had any concerns about having a place to live, or about the condition or quality of your housing? Never Would you like more information on any of the following (please check all that apply)? Not interested Social History: Do you have any history of depression, anxiety, PTSD, or other mood problems? No Do you have a history of abuse or trauma that may impact your experience? No Are you currently employed? Yes Depression/Anxiety Screening: denies symptoms of depression. OB Depression and Anxiety Screening- This Encounter (since 01/06/2024) Over the past 2 weeks have you felt down, depressed, or hopeless? Negative Over the past two weeks, have you felt little interest or pleasure in doing things? Negative Feeling nervous, anxious or on edge 0-Not at all Not being able to stop or control worrying 0-Not al all Anxiety Pre-Screening Total (If >/= 3 additional questions will be reviewed) 0 Genetic Screening: Partner present: Yes Patient verbalized knowledge of partner family health history: Yes Do you or your partner have any personal or family history of defects not previously discussed: Yes, Father's family, +Autism (nephew) Do you have history of a complicated by anomaly, genetic condition, or demise: No Low Dose ASA Screening: Screening for low dose aspirin use for the prevention of pre-eclampsia: High risk factors: None Moderate risk ractors: Nulliparity OB Risk Screening: Completed, no positive findings documented. Marital Status: Partner: Name: Jeffrey Age: 26 Occupation: [employer] Gender: Male PAST MEDICAL HISTORY Diagnosis Date PMH - PAST MEDICAL HISTORY OF 10/20/2001 normal color vision 10/2001 PAST SURGICAL HISTORY Procedure Laterality Date EXTRACTION, ERUPTED TOOTH OR EXPOSED ROOT (ELEVATION AND/OR FORCEPS REMOVAL) 2013 PAST SURGICAL HISTORY OF wisdom teeth Current Outpatient Medications Medication Sig Dispense Refill 25/iron fum/folic/dha (-1 ORAL) Take 1 tablet by mouth once daily. cholecalciferol (VITAMIN D3) 1,000 unit tab tablet Take 1 tablet by mouth once daily. 90 tablet 1 No current facility-administered medications for this visit. Allergies As of Date: 01/07/2024 (No Known Allergies) Fully Assessed 01/07/2024 Does patient have penicillin allergy: No REVIEW OF SYSTEMS: GENERAL: Negative for: Fever or Chills HEENT: Negative for: Headache, Impaired Vision, Ringing in Ears, Nosebleeds NECK: Negative for: Swelling, Pain, Stiffness RESPIRATORY: Negative for: Cough, Shortness of breath, Wheezing GASTROINTESTINAL: Negative for: Heartburn, Constipation, Diarrhea, Blood in stool, Vomiting MUSCULOSKELETAL: Negative for: Muscle or joint pain, stiffness, Joint swelling NEUROLOGIC/PSYCHIATRIC: Negative for: Weakness, Paralysis, Numbness, Tingling, Tremor, Anxiety, Depression, Memory loss SKIN: Negative for: Rash, Itching GENITOURINARY: Negative for: vaginal itching, vaginal discharge, hematuria or dysuria SENSITIVE EXAM: The sensitive examination was discussed with the Patient or Patient's Authorized Litigator. As applicable, any other physician, advance practice provider, medical student, or other health professional student that will be observing or involved in the sensitive examination for educational or training purposes was discussed with the Patient or Authorized Litigator. The Patient or Authorized Litigator has agreed to proceed with the sensitive examination. (Sensitive examination includes inspection and/or palpation of the breasts, pelvis, prostate and anorectal regions) PHYSICAL EXAM: BP 120/60 Ht 5' 6.5 (1.69m) Wt 147 lb 9.6 oz (67.0kg) LMP 11/15/2023 BMI 23.47 kg/(m^2). GENERAL: pleasant in no apparent distress DERMATOLOGY: Normal, without lesions, non-icteric, and non-hirsute NECK: Supple, full range of motion, no adenopathy, and thyroid normal CHEST: Normal inspiratory effort BREAST: soft, non-tender, symmetric, no dominant mass, normal nipple-areolar complex, no lymphadenopathy, and no nipple discharge ABDOMEN: soft, non-tender, and no masses NEURO: alert and oriented x3,exam grossly non-focal PELVIS: External genitalia normal without lesions. Perineal body intact. No vaginal or cervical lesions. Cervix closed. Uterus 8 week size. No adnexal masses or tenderness. Clinical Pelvimetry: Pelvimetry clinically assessed as adequate Limited OB ultrasound exam: single intrauterine , positive cardiac activity, crown-rump length 7w4d, FHR 160, and normal bilateral adnexa. LMP=US, 7w4d, KILEY by LMP 08/21/24 ASSESSMENT: 29 year old at Unknown wks gestational age PLAN: 1) Patient oriented to practice. Patient given new OB orientation folder. Discussed nutrition, folic acid supplementation, dietary guidelines, exercise, smoking, alcohol, caffeine, and drug use. Discussed gestational weight gain guidelines. Discussed routine OB labs including STD/HIV. Discussed hemoglobin electrophoresis. Patient: Accepts 2) Screening: Hemoglobin A1C: ordered Baby Aspirin: The patient has been counseled about the potential benefits of low dose aspirin in and our recommendation that this be offered to all patients, regardless of whether they meet the high risk criteria specified above. She Accepts Aneuploidy Screening: Discussed aneuploidy screening, nuchal translucency/first trimester early anatomy ultrasound and NIPT. The risks/benefits and limitations of NIPT/aneuploidy screening were reviewed including the potential for false negative and false positive results. The availability of genetic counseling was reviewed. Information on aneuploidy screening was provided. The patient is uncertain. She will call back if she wants to proceed with screening. Pt aware of timing. Myriad Carrier Screening: Discussed myriad carrier screening. We discussed the availability of professional-society guided carrier screening and reviewed the conditions screened and limitations of screening. The availability of genetic counseling was reviewed. Information on carrier screening was provided. The patient will check with insurance 3) Patient offered option of Virtual Visits. Patient prefers in person visits. Follow up in 4 weeks or sooner prn. Malia Romero APRN.CNM OB point of care ultrasound was performed. See imaging tab for details. Marielos Rico MA documented in this encounter [facility] 01-07-2024 Instructions Malia Romero APRN.CNM - 01/07/2024 8:32 AM EDT Please select the following link to access the [facility] Your Guide to a Healthy . [email or web address] Nausea and Vomitin) Vitamin B6 50 mg by mouth twice daily. Take this daily until approximately 14 weeks for prevention. 2) Unisom 1/2 tablet by mouth at bedtime. May increase to full tablet if needed. If no improvement in nausea may up to a full tablet every 8 hours as needed. LMNT Aspirin 81mg by mouth once daily Low Dose Aspirin This sheet talks about exposure to low dose aspirin in and while . This information should not take the place of medical care and advice from your healthcare provider.\ What is low dose aspirin? Aspirin is also known as acetylsalicylic acid. It is a common prescription and [id number] medication similar to other non-steroidal inflammatory drugs (NSAIDs) like ibuprofen (Motrin ) and naproxen (Aleve ). Aspirin reduces inflammation, fever, and pain. Aspirin can prevent blood clots, which can make it useful in treating or preventing conditions like heart attacks and strokes. Low dose aspirin ranges from 60 to 150 mg daily, but the usual dose taken during to treat or prevent certain conditions is 81 mg daily.Regular strength and high strength aspirin and other NSAIDs are NOT preferred pain relievers during .Sometimes when people find out they are , they think about changing how they take their medication, or stopping their medication altogether. However, it is important to talk with your healthcare providers before making any changes to how you take this medication. Your healthcare providers can talk with you about the benefits of treating your condition and the risks of untreated illness during . I take low dose aspirin. Can it make it harder for me to get ? Low dose aspirin is not expected to make it harder to get . A study that included people who had 1 or 2 documented losses then asked to take daily low dose aspirin found that taking low dose aspirin at least 4 days a week increased the chance of a . Does taking low dose aspirin increase the chance for miscarriage? Miscarriage can occur in any . Taking low doses of aspirin is not thought to increase the chance of miscarriage. Some studies have shown that taking low dose aspirin before may help lower the chance of miscarriage in some people who have had one or more miscarriages before 20 weeks of . These findings are similar to studies that showed improved outcomes in people undergoing assisted reproductive technologies (fertility treatments) and were treated with low dose aspirin prior to implantation of the fertilized egg into the uterus. Does taking low dose aspirin increase the chance of defects? Every starts out with a 3-5% chance of having a defect. This is called the background risk. Studies on the use of low dose aspirin during have not found a higher chance of defects. Does taking low dose aspirin in increase the chance of other related problems? Taking low dose aspirin as directed by a healthcare provider is not expected to cause other problems. Studies have shown that low dose aspirin might improve outcomes in some people by increasing blood flow to and reducing inflammation or swelling in the uterus. Studies have also shown that low dose aspirin might lower the chances for preeclampsia (dangerously high blood pressure and complications) in people who are at high risk for this condition. However, people who are should only take low dose aspirin if their healthcare provider recommends it. Does taking low dose aspirin in affect future behavior or learning for the child? There are not many studies about long-term effects for children exposed to low dose aspirin during . However, studies have not found an increased chance for problems with physical or mental development in infants at 18 months of age. A study that looked at children up to 5 years of age who were born very early (before 33 weeks) and who were exposed to low dose aspirin during did not find an effect on their learning or behavior compared to children who were not exposed to low dose aspirin during . while taking low dose aspirin: The occasional use of low dose aspirin (75 mg daily to below 300 mg daily) is not expected to increase risks to a . Only small amounts of low dose aspirin enter the breast milk and adverse effects have not been reported in breastfed newborns or older infants. Healthcare providers might recommend low dose aspirin in some people during to treat certain medical conditions. However, regular strength aspirin (over 325 mg) is not preferred during . Aspirin eliminates from an infant s body more slowly than from an adult s body, so aspirin levels in the s body could build up over time with long-term use of aspirin. Using high dose aspirin can lower the body s ability to clot blood(could lead to easier bruising or bleeding). This is not likely to happen with low dose aspirin. Talk with your Healthcare provider about your questions. If a male takes low dose aspirin, could it affect fertility (ability to get partner ) or increase the chance of defects? There is very limited information about the effects of low dose aspirin on male reproduction. One study looked at men who attended an infertility clinic and were taking non-prescribed low dose aspirin at different doses and frequencies for at least six months. The study reported a decrease in the amount and quality of sperm, especially in those who used higher amounts of aspirin. Generally, it is not considered necessary for men to stop using low dose aspirin before trying to get their partner . However, men undergoing fertility treatment may want to talk with their healthcare providers about whether or not they need to stop taking aspirin. In general, exposures that fathers or sperm donors have are unlikely to increase the risks to a . For more information, please see the MotherToBaby fact sheet Paternal Exposures at [email or web address] . documented in this encounter [facility] 01-07-2024 Note HNO ID: [id number] Author: MARIELOS RICO MA Service: ? 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 See imaging tab for details. Marielos Rico MA [facility] 01-14-2023 History of Present illness Narrative CC: Lynette Hernandez is a 28 year old female who presents to the office for physical HPI: Overall she is doing well. 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 Still loving her job In a serious relationship with her boyfriend of 5 months PAST MEDICAL HISTORY Diagnosis Date [facility] - PAST MEDICAL HISTORY OF 10/20/2001 normal color vision 10/2001 PAST SURGICAL HISTORY Procedure Laterality Date PAST SURGICAL HISTORY OF wisdom teeth Social History: Social History Tobacco Use Smoking status: Never Smokeless tobacco: Never Vaping Use Vaping Use: Never used Substance Use Topics Alcohol use: Yes Comment: socially/rare Drug use: No FAMILY HISTORY Problem Relation Age of Onset Hypertension Father other (Other) Father retinopathy Lipids Father No Known Problems Sister No Known Problems Brother Cancer Maternal Grandfather hodgkins and prostate Diabetes Paternal Grandfather Heart Paternal Grandfather Asthma Maternal Uncle Current Outpatient prescriptions: 25/iron fum/folic/dha (-1 ORAL) Take 1 tablet by mouth once daily. cholecalciferol (VITAMIN D3) 1,000 unit tab tablet Take 1 tablet by mouth once daily. Allergies: ALLERGIES No Known Allergies ROS: See HPI PE: 01/14/23 0843 BP: 112/68 Pulse: 80 Resp: 12 Temp: 36.1 C (97 F) TempSrc: Right Tympanic Weight: 67.6 kg (149 lb) Height: 168 cm (5' 6.14) Gen: A&O, NAD, non-toxic appearing, Pleasant, cooperative HEENT: NT/AC, PERRLA, EOMs intact b/l, nares clear and patent b/l, pharynx without erythema, exudate or lesions. Uvula midline. EACs without erythema or debris. TMs pearly floyd with intact landmarks b/l. Neck: supple, No cervical LAD, no thyromegaly, no carotid bruits CV: RRR, normal S1 and S2, no murmurs, no gallops, no rubs, Pulses 2+ and symmetric in UE and LE b/l Lungs: normal respiratory effort, CTA b/l, no wheezing or rhonchi or rales Abd: soft, NT, ND, +BS, no hepatosplenomegaly MS: FROM all 4 extremities Neuro: CN II-XII intact b/l, strength 5/5 b/l UE and LE, DTRs 2/4 UE and LE, sensation intact. Skin: warm, dry, intact, No rashes or lesions on exposed skin. ASSESSMENT/PLAN: 1. Well adult exam - ICD9: V70.0, ICD10: Z00.00 - Counseled on healthy diet and regular exercise - Calcium intake with supplements or by diet of 1000 mg/day for under 50, 6245-9449 mg/day for 50+ Lorenzo Del Toro DO To ER if develops chest pain, shortness of breath, or severe worsening of symptoms. Discussed risks, benefits, alternatives, and potential side effects of medications. Patient expressed understanding and agreed with the plan. Lorenzo Del Toro DO [address] [place] [address] documented in this encounter [facility] 12-31-2022 History of Present illness Narrative Lynette is a 27 year old who presents for an annual gynecologic exam without complaints. Has new boyfriend and talking about marriage. Menses: cycles every 28-30 days and 6-8 days of flow. 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 History Comments: Sexual Activity: Never; No partner data on record Contraception: No contraception data on record PAST MEDICAL HISTORY Diagnosis Date PMH - PAST MEDICAL HISTORY OF 10/20/2001 normal color vision 10/2001 PAST SURGICAL HISTORY Procedure Laterality Date PAST SURGICAL HISTORY OF wisdom teeth FAMILY HISTORY Problem Relation Age of Onset Hypertension Father other (Other) Father retinopathy Lipids Father Cancer Maternal Grandfather hodgkins and prostate Diabetes Paternal Grandfather Heart Paternal Grandfather Asthma Maternal Uncle SOCIAL HISTORY Social History Tobacco Use Smoking status: Never Smokeless tobacco: Never Vaping Use Vaping Use: Never used Substance Use Topics Alcohol use: Yes Comment: socially/rare Drug use: No REVIEW OF SYSTEMS Abdomen: No abdominal pain, nausea, vomiting, diarrhea, or constipation. No bloating, early satiety, indigestion, or increased flatulence. Bladder: No dysuria, gross hematuria, urinary frequency, urinary urgency, or incontinence. Breast: No breast lumps, nipple d/c, overlying skin changes, redness or skin retraction. Allergies and current medication updated:Yes EXAM: LMP 12/22/2021 GENERAL: pleasant, female in no apparent distress HEENT: Normocephalic, atraumatic, mucus membranes moist, and no lesions NECK: Supple, full range of motion, no adenopathy, and thyroid normal DERMATOLOGY: Normal, without lesions, non-icteric, and non-hirsute BREAST: soft, non-tender, symmetric, no dominant mass, normal nipple-areolar complex, no lymphadenopathy, no nipple discharge, and fibrocystic changes CHEST: Normal inspiratory effort ABDOMEN: soft, non-tender, and no masses PELVIC: external genitalia normal, normal Bartholin's glands, urethra, Knightdale's glands, no vulvar lesions, no cervical lesions, good vaginal support, physiologic discharge present, normal appearing perineal body and perianal region BIMANUAL: uterus normal size, shape and consistency, no adnexal masses, non-tender, and no cervical motion tenderness RECTOVAGINAL: deferred. NEURO: alert and oriented x3,exam grossly non-focal EXTREMITIES: normal ASSESSMENT/PLAN: 1) Health maintenance: Pap/HPV up to date. HPV vaccine: completed series 2) Contraception: none. Contraceptive options reviewed and information provided. 3) STD screening: Requesting serum testing due to hx of urine in eyes while working 4) Follow up one year or sooner as needed Taylor King APRN.CNM documented in this encounter [facility] 01-09-2022 History of Present illness Narrative CC: Lynette Hernandez is a 27 year old female who presents to the office for physical HPI: Overall doing well. 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 PAST MEDICAL HISTORY Diagnosis Date PM - PAST MEDICAL HISTORY OF 10/20/2001 normal color vision 10/2001 PAST SURGICAL HISTORY Procedure Laterality Date PAST SURGICAL HISTORY OF wisdom teeth Social History: Social History Tobacco Use Smoking status: Never Smokeless tobacco: Never Vaping Use Vaping Use: Never used Substance Use Topics Alcohol use: Yes Comment: socially/rare Drug use: No FAMILY HISTORY Problem Relation Age of Onset Hypertension Father other (Other) Father retinopathy Lipids Father Cancer Maternal Grandfather hodgkins and prostate Diabetes Paternal Grandfather Heart Paternal Grandfather Asthma Maternal Uncle Current Outpatient prescriptions: MULTIVITAMIN ORAL Take by mouth. cholecalciferol (VITAMIN D3) 1,000 unit tab tablet Take 1 tablet by mouth once daily. Allergies: ALLERGIES No Known Allergies ROS: See HPI PE: 01/09/22 1425 BP: 90/60 Pulse: 80 Resp: 16 Temp: (!) 35.8 C (96.4 F) TempSrc: Left Tympanic Weight: 68.5 kg (151 lb) Height: 169.5 cm (5' 6.73) Gen: A&O, NAD, non-toxic appearing, Pleasant, cooperative HEENT: NT/AC, PERRLA, wearing glasses, EOMIs intact b/l, nares clear and patent b/l, pharynx without erythema, exudate or lesions. Uvula midline. EACs without erythema or debris. TMs pearly floyd with intact landmarks b/l. Neck: supple, No cervical LAD, mild symmetric non tender thyromegaly, no carotid bruits CV: RRR, normal S1 and S2, no murmurs, no gallops, no rubs, Pulses 2+ and symmetric in UE and LE b/l Lungs: normal respiratory effort, CTA b/l, no wheezing or rhonchi or rales Abd: soft, NT, ND, +BS, no hepatosplenomegaly MS: FROM all 4 extremities Neuro: CN II-XII intact b/l, strength 5/5 b/l UE and LE, DTRs 2/4 UE and LE, sensation intact. Skin: warm, dry, intact, No rashes or lesions on exposed skin. ASSESSMENT/PLAN: 1. Well adult exam - ICD9: V70.0, ICD10: Z00.00 (primary diagnosis) - Counseled on healthy diet and regular exercise - Calcium intake with supplements or by diet of 1000 mg/day for under 50, 1887-5726 mg/day for 50+ 2. Thyromegaly - ICD9: 240.9, ICD10: E01.0 Labs as ordered - TSH BLD - T4 FREE/FREE THYROX - T3 FREE BLD - THYROID PEROXIDASE ANTIBODY BLOOD Lorenzo Del Toro DO To ER if develops chest pain, shortness of breath, or severe worsening of symptoms. Discussed risks, benefits, alternatives, and potential side effects of medications. Patient expressed understanding and agreed with the plan. Lorenzo Del Toro DO [address] [place] [address] documented in this encounter [facility] Chief complaint+Reason for v isit Narrative [facility] Work Phone: Evaluation noteNo assessment information available [facility] Work Phone: Evaluation note* Diagnosis Well adult exam- Primary Routine general medical examination at a health care facility Thyromegaly Goiter, unspecified [facility] Diagnosis Encounter for gynecological examination (general) (routine) without abnormal findings- Primary [facility] Diagnosis Well adult exam- Primary Routine general medical examination at a health care facility [facility] Diagnosis with uncertain dates in first trimester- Primary Supervision of other normal , antepartum Encounter for supervision of normal first in first trimester Supervision of normal first [facility] Diagnosis Well adult exam- Primary Routine general medical examination at a health care facility 9 weeks gestation of state, incidental [facility]* Diagnosis Supervision of other normal , antepartum- Primary 13 weeks gestation of state, incidental [facility] Diagnosis 13 weeks gestation of - Primary state, incidental Encounter for supervision of normal first in second trimester Supervision of normal first Encounter for anatomic survey [facility]* Diagnosis screening for malformation using ultrasonics- Primary Encounter for routine screening for malformation using ultrasonics 13 weeks gestation of state, incidental Nuchal translucency of fetus on ultrasound Abnormal findings on screening [facility] Diagnosis False positive HIV serology- Primary Other specified conditions influencing health status [facility] Diagnosis Nausea and vomiting in - Primary Unspecified vomiting of , unspecified as to episode of care [facility] Diagnosis 16 weeks gestation of - Primary state, incidental Supervision of other normal , antepartum [facility] Diagnosis Encounter for anatomic survey- Primary 20 weeks gestation of state, incidental [facility] Diagnosis 20 weeks gestation of - Primary state, incidental Supervision of other normal , antepartum with uncertain dates in first trimester [facility] Diagnosis 24 weeks gestation of - Primary state, incidental Screening for diabetes mellitus Supervision of other normal , antepartum [facility] Diagnosis Encounter for supervision of normal first in second trimester- Primary Supervision of normal first 27 weeks gestation of state, incidental Rh negative state in antepartum period Rhesus isoimmunization affecting management of mother, antepartum condition [facility]* Diagnosis Encounter for supervision of normal first in second trimester- Primary Supervision of normal first Rh negative state in antepartum period Rhesus isoimmunization affecting management of mother, antepartum condition 29 weeks gestation of state, incidental [facility]* Diagnosis Encounter for supervision of normal first in second trimester (HCC)- Primary Supervision of normal first 31 weeks gestation of (HCC) state, incidental [facility]* Diagnosis Encounter for supervision of normal first in third trimester (HCC)- Primary Supervision of normal first 33 weeks gestation of (HCC) state, incidental [facility]* Diagnosis 35 weeks gestation of (HCC)- Primary state, incidental Encounter for supervision of normal first in third trimester (HCC) Supervision of normal first [facility]* Diagnosis 36 weeks gestation of (HCC)- Primary state, incidental Encounter for supervision of normal first in third trimester (HCC) Supervision of normal first Rh negative state in antepartum period ([facility]) Rhesus isoimmunization affecting management of mother, antepartum condition [facility]* Diagnosis Encounter for supervision of normal first in third trimester ([facility])- Primary Supervision of normal first 38 weeks gestation of ([facility]) state, incidental documented in this encounter [facility] for referral (narrative)* Diagnostic Procedure Only (Routine) - New Request Specialty Diagnoses / Procedures Referred By Delores navarro Referred To Contact [facility] Diagnoses Supervision of other normal , antepartum 13 weeks gestation of Procedures NUCHAL TRANSLUCENCY WHI US NUCHAL TRANSLUCENCY 1ST GESTATION Beata Dahl MD [address] [place] [address] [facility] [employer] [place] [id number] Referral ID Status Reason Start Date Expiration Date Visits Requested Visits Authorized [id number] New Request Auto-Generat ed Referral 4 02/13/2025 1 1 [facility] for referral (narrative)* Diagnostic Procedure Only (Routine) - New Request Specialty Diagnoses / Procedures Referred By Delores navarro Referred To Contact [facility] Diagnoses Encounter for anatomic survey Procedures OBSTETRIC ULTRASOUND WHI US PREG UTERUS AFTER 1ST TRIMEST 1 GESTATION Beata Dahl MD [address] [place] [address] [facility] [place] [address] Referral ID Status Reason Start Date Expiration Date Visits Requested Visits Authorized [id number] New Request Auto-Generat ed Referral 4 02/13/2025 1 1 [facility] Summary Purpose Family History No Family History Records FoundNo Family History Records FoundNo Family History Records FoundNo Family History Records Found Advance Directives No Advanced Directives Records Found Advance Directive Response Recorded Date/ Time Living Will No June 22, 2021 5:21pm Power of Wildlife Ecologist No June 22 5:21pm Additional Source Comments INFORMATION SOURCE (unrecogn ized section and content) DATE CREATED AUTHOR 01/20/2018 [facility] DATE CREATED AUTHOR AUTHOR'S ORGANIZ ATION 01/22/2018 [facility] DATE CREATED AUTHOR AUTHOR'S ORGANIZ ATION 04/08/2024 [facility] DATE CREATED AUTHOR AUTHOR'S ORGANIZ ATION 08/20/2024 [facility] Goals (unrecognized section and content) Goals may be documented in a n alternate section Source Comments (unrecognize d section and content) In the event this informatio n is protected by the Federal Confidentiality of Alcohol and Drug Abuse Patient Records regulations: The Federal rules restrict any use of the information to criminally investigate or prosecute any alcohol or drug abuse patient.[facility] event this information is protected by the Federal Confidentiality of Alcohol and Drug Abuse Patient Records regulations: The Federal rules restrict any use of the information to criminally investigate or prosecute any alcohol or drug abuse patient.[facility] the event this information is protected by the Federal Confidentiality of Alcohol and Drug Abuse Patient Records regulations: The Federal rules restrict any use of the information to criminally investigate or prosecute any alcohol or drug abuse patient.[facility] the event this information is protected by the Federal Confidentiality of Alcohol and Drug Abuse Patient Records regulations: The Federal rules restrict any use of the information to criminally investigate or prosecute any alcohol or drug abuse patient.[facility] the event this information is protected by the Federal Confidentiality of Alcohol and Drug Abuse Patient Records regulations: The Federal rules restrict any use of the information to criminally investigate or prosecute any alcohol or drug abuse patient.[facility] the event this information is protected by the Federal Confidentiality of Alcohol and Drug Abuse Patient Records regulations: The Federal rules restrict any use of the information to criminally investigate or prosecute any alcohol or drug abuse patient.[facility] the event this information is protected by the Federal Confidentiality of Alcohol and Drug Abuse Patient Records regulations: The Federal rules restrict any use of the information to criminally investigate or prosecute any alcohol or drug abuse patient.[facility] the event this information is protected by the Federal Confidentiality of Alcohol and Drug Abuse Patient Records regulations: The Federal rules restrict any use of the information to criminally investigate or prosecute any alcohol or drug abuse patient.[facility] the event this information is protected by the Federal Confidentiality of Alcohol and Drug Abuse Patient Records regulations: The Federal rules restrict any use of the information to criminally investigate or prosecute any alcohol or drug abuse patient.[facility] the event this information is protected by the Federal Confidentiality of Alcohol and Drug Abuse Patient Records regulations: The Federal rules restrict any use of the information to criminally investigate or prosecute any alcohol or drug abuse patient.[facility] the event this information is protected by the Federal Confidentiality of Alcohol and Drug Abuse Patient Records regulations: The Federal rules restrict any use of the information to criminally investigate or prosecute any alcohol or drug abuse patient.[facility] the event this information is protected by the Federal Confidentiality of Alcohol and Drug Abuse Patient Records regulations: The Federal rules restrict any use of the information to criminally investigate or prosecute any alcohol or drug abuse patient.[facility] the event this information is protected by the Federal Confidentiality of Alcohol and Drug Abuse Patient Records regulations: The Federal rules restrict any use of the information to criminally investigate or prosecute any alcohol or drug abuse patient.[facility] the event this information is protected by the Federal Confidentiality of Alcohol and Drug Abuse Patient Records regulations: The Federal rules restrict any use of the information to criminally investigate or prosecute any alcohol or drug abuse patient.[facility] the event this information is protected by the Federal Confidentiality of Alcohol and Drug Abuse Patient Records regulations: The Federal rules restrict any use of the information to criminally investigate or prosecute any alcohol or drug abuse patient.[facility] the event this information is protected by the Federal Confidentiality of Alcohol and Drug Abuse Patient Records regulations: The Federal rules restrict any use of the information to criminally investigate or prosecute any alcohol or drug abuse patient.[facility] the event this information is protected by the Federal Confidentiality of Alcohol and Drug Abuse Patient Records regulations: The Federal rules restrict any use of the information to criminally investigate or prosecute any alcohol or drug abuse patient.[facility] the event this information is protected by the Federal Confidentiality of Alcohol and Drug Abuse Patient Records regulations: The Federal rules restrict any use of the information to criminally investigate or prosecute any alcohol or drug abuse patient.[facility] the event this information is protected by the Federal Confidentiality of Alcohol and Drug Abuse Patient Records regulations: The Federal rules restrict any use of the information to criminally investigate or prosecute any alcohol or drug abuse patient.[facility] the event this information is protected by the Federal Confidentiality of Alcohol and Drug Abuse Patient Records regulations: The Federal rules restrict any use of the information to criminally investigate or prosecute any alcohol or drug abuse patient.[facility] the event this information is protected by the Federal Confidentiality of Alcohol and Drug Abuse Patient Records regulations: The Federal rules restrict any use of the information to criminally investigate or prosecute any alcohol or drug abuse patient.[facility] the event this information is protected by the Federal Confidentiality of Alcohol and Drug Abuse Patient Records regulations: The Federal rules restrict any use of the information to criminally investigate or prosecute any alcohol or drug abuse patient.[facility] the event this information is protected by the Federal Confidentiality of Alcohol and Drug Abuse Patient Records regulations: The Federal rules restrict any use of the information to criminally investigate or prosecute any alcohol or drug abuse patient.[facility] Reason for Visit (unrecogniz ed section and content) Reason Comments Yearly Exam Specialty Diagnoses / Procedures Referred By Contac t Referred To Contact Family Medicine / FAMILY MEDICINE Diagnoses Yearly physical Procedures OFFICE/OUTPATIENT NEW HIGH MDM 60-74 MINUTES OFFICE/OUTPATIENT ESTABLISHED HIGH MDM 40-54 MIN MYC PHYSICAL Lorenzo Del Toro, DO [address] [place] [address] Lorenzo Del Toro, DO [address] [place] [address] Referral ID Status Reason Start Date Expiration Date V isits Requested Visits Authorized [id number] Closed Patient Cleared - INN Insurance Found 01/14/2023 03/17/2023 1 1 Reason Comments Well Woman Specialty Diagnoses / Procedures Referred By Contac t Referred To Contact SPECIAL PROCEDURES TECH Diagnoses Annual exam and lab work Procedures [facility] ANNUAL PATIENT Lorenzo Del Toro, DO [address] [place] [address] Taylor King APRN.[facility] [address] [place] [address] Referral ID Status Reason Start Date Expiration Date Visits Requested Visits Authorized [id number] Authorized Patient Cleared - INN Insurance Found 12/14/2022 03/14/2023 99 99 Reason Comments Initial OB Visit Reason Comments Orders Reason Onset Date Comments Care 02/14/2024 Reason Comments US Specialty Diagnoses / Procedures Referred By Contac t Referred To Contact [facility] Diagnoses Supervision of other normal , antepartum 13 weeks gestation of Encounter for supervision of normal , unspecified, unspecified trimester Procedures NUCHAL TRANSLUCENCY WHI US NUCHAL TRANSLUCENCY 1ST GESTATION US NUCHAL TRANSLUCENCY EA ADDL GESTATION Beata Dahl MD [address] [place] [address] [facility] [address] [place] [address] Referral ID Status Reason Start Date Expiration Date Visits Requested Visits Authorized [id number] Authorized Auto-Generate d Referral Clearance Not Met -Financial Clearance Bypassed 03/17/2024 99 99 Reason Comments Results Reason Onset Date Comments Care 03/10/2024 Specialty Diagnoses / Procedures Referred By Delores navarro Referred To Contact [facility] Diagnoses Encounter for anatomic survey Procedures OBSTETRIC ULTRASOUND WHI US PREG UTERUS AFTER 1ST TRIMEST GESTATION Beata Dahl MD [address] [place] [address] [address] Referral ID Status Reason Start Date Expiration Date V isits Requested Visits Authorized [id number] Closed Auto-Generate d Referral 02/14/2024 02/13/2025 1 1 Reason Onset Date Comments Care 04/03/2024 Reason Onset Date Comments Care 05/01/2024 Reason Onset Date Comments Care 05/27/2024 Reason Onset Date Comments Care 06/09/2024 Reason Onset Date Comments Care 06/22/2024 Reason Onset Date Comments Care 07/06/2024 Reason Onset Date Comments Care 07/20/2024 Reason Onset Date Comments Care 07/28/2024 Reason Onset Date Comments Care 08/11/2024 Care Teams (unrecognized sec tion and content) [employer] Worker Relationship Specialty Start Date End Date Lorenzo Del Toro DO [address] [place] [address] PCP - General Family Medicine 12/16/17 [employer] Worker Relationship Specialty Start Date End Date Lorenzo Del Toro DO [address] [place] [address] PCP - General Family Medicine 12/16/17 [employer] T[employer] Worker Relationship Specialty Start Date End Date Lorenzo Del Toro DO [address] [facility] [address] PCP - General Family Medicine 12/16/17 [employer]otive T[employer] Worker Relationship Specialty Start Date End Date Lorenzo Del Toro DO [address] [facility] [address] PCP - General Family Medicine 12/16/17 [employer]otive T[employer] Worker Relationship Specialty Start Date End Date Lorenzo Del Toro DO [address] [facility] [address] PCP - General Family Medicine 12/16/17 [employer]otive T[employer] Worker Relationship Specialty Start Date End Date Lorenzo Del Toro DO [address] [facility] [address] PCP - General Family Medicine 12/16/17 [employer] T[employer] Worker Relationship Specialty Start Date End Date Lorenzo Del Toro DO [address] [facility] [address] PCP - General Family Medicine 12/16/17 [employer]otive T[employer] Worker Relationship Specialty Start Date End Date Lorenzo Del Toro DO [address] [facility] [address] PCP - General Family Medicine 12/16/17 [employer]otive T[employer] Worker Relationship Specialty Start Date End Date Lorenzo Del Toro DO [address] [facility] [address] PCP - General Family Medicine 12/16/17 [employer]otive T[employer] Worker Relationship Specialty Start Date End Date Lorenzo Del Toro DO [address] [place] [address] PCP - General Family Medicine 12/16/17 Kaitlynn Kwong, BILLING ANALYST.P[employer]PWOOD BUYER [address] [place] [address] Sail Repairer Family Medicine 02/23/24 Jocelyne Escobedo, BILLING ANALYST.PULPWOOD BUYER [address] [facility] [address] Sail Repairer Family Medicine 02/23/24 [employer]otive T[employer] Worker Relationship Specialty Start Date End Date Lorenzo Del Toro DO [address] [facility] [address] PCP - General Family Medicine 12/16/17 Kaitlynn Kwong, BILLING ANALYST.P[employer]PWOOD BUYER [address] [facility] [address] Sail Repairer Family Medicine 02/23/24 Jocelyne Escobedo, BILLING ANALYST.PULPWOOD BUYER [address] [facility] [address] Sail Repairer Family [facility] 02/23/24 Automotive T[employer] Worker Relationship Specialty Start Date End Date Lorenzo Del Toro DO [address] [facility] [address] PCP - General Family Medicine 12/16/17 Kaitlynn Kwong, BILLING ANALYST.P[employer]PWOOD BUYER [address] [facility] [address] Sail Repairer Family Medicine 02/23/24 Jocelyne Escobedo, BILLING ANALYST.PULPWOOD BUYER [address] [facility] [address] [facility] [employer] T[employer] Worker Relationship Specialty Start Date End Date Lorenzo Del Toro DO [address] [place] [address] PCP - General Family Medicine 12/16/17 Kaitlynn Kwong, BILLING ANALYST.PULPWOOD BUYER [address] [place] [address] [facility] 02/23/24 FannyJocelyne, BILLING ANALYST.PULPWOOD BUYER [address] [place] [address] [facility] 02/23/24 Automotive T[employer] Worker Relationship Specialty Start Date End Date Lorenzo Del Toro DO [address] [place] [address] PCP - General Family Medicine 12/16/17 Kaitlynn Kwong, BILLING ANALYST.P[employer]OD BUYER [address] [place] [address] [facility] 02/23/24 FannyJocelyne, BILLING ANALYST.PULPWOOD BUYER [address] [place] [address] [facility] 02/23/24 Automotive T[employer] Worker Relationship Specialty Start Date End Date Lorenzo Del Toro DO [address] [place] [address] PCP - General Family Medicine 12/16/17 Kaitlynn Kwong, BILLING ANALYST.PULPWOOD BUYER [address] [place] [address] [facility] 02/23/24 [facility], BILLING ANALYST.PULPWOOD BUYER [address] [place] [address] [facility] 02/23/24 [employer] T[employer] Worker Relationship Specialty Start Date End Date Lorenzo Del Toro DO [address] [place] [address] PCP - General Family Medicine 12/16/17 [facility] BILLING ANALYST.PULPWOOD BUYER [address] [place] [address] [facility] 02/23/24 Automotive [employer] Worker Relationship Specialty Start Date End Date Lorenzo Del Toro DO [address] [place] [address] PCP - General Family Medicine 12/16/17 [facility], BILLING ANALYST.P[employer]PWOOD BUYER [address] [place] [address] [facility] 02/23/24 [employer] Worker Relationship Specialty Start Date End Date Lorenzo Del Toro DO [address] [place] [address] PCP - General Family Medicine 12/16/17 [facility], BILLING ANALYST.P[employer]PWOOD BUYER [address] [place] [address] [facility] 02/23/24 [employer]otive T[employer] Worker Relationship Specialty Start Date End Date Lorenzo Del Toro DO [address] [place] [address] PCP - General Family Medicine 12/16/17 Kaitlynn Kwong APRN.[employer]ER [address] [place] [place], [place] [address] [facility] 02/23/24 06/05/24 Jocelyne Escobedo APRN.[employer] BUYER [address] [place] [place], [place] [address] [facility] 02/23/24 [employer] Worker Relationship Specialty Start Date End Date Lorenzo Del Toro DO [address] [place] [place], [place] [address] PCP - [facility] 12/16/17 Jocelyne Escobedo APRN.[employer] BUYER [address] [place], [place] [address] [facility] 02/23/24 FOR RECORDS PERTAINING TO PATIENTS WHO ARE OR HAVE BEEN ENROLLED IN A CHEMICAL DEPENDENCY/SUBSTANCEABUSE PROGRAM, SOME INFORMATION MAY BE OMITTED. This clinical summary was aggregated from multiple sources. Caution should be exercised in using it in the provision of clinical care. This summary normalizes information from multiple sources, and as a consequence, information in this document may materially change the coding, format and clinical context of patient data. In addition, data may be omitted in some cases. CLINICAL DECISIONS SHOULD BE BASED ON THE PRIMARY CLINICAL RECORDS. [facility] [employer] [facility]. provides no warranty or guarantee of the accuracy or completeness of information in this document.
[2024-08-20] MEDS: Lactated Ringers 1,000 ML 50 ML IV (11:25)
[2024-08-20] MEDS: Ondansetron 4 MG/2 ML Vial IV ×2 (11:40→19:07)
[2024-08-20] MEDS: Lactated Ringers 1,000 ML 999 ML IV (11:45)
[2024-08-20 12:01] LABS: Absolute Lymphocyte Count 0.86 X10^3/uL (0.83-4.51); Absolute Neutrophil Count 12.1 X10^3/uL (2.0-7.7); Basophil# 0.05 X10^3/uL; Basophil% 0.4 % (0-1); Eosinophil# 0.07 X10^3/uL; Eosinophils% 0.5 % (0-5); Hematocrit 36.3 % (37-47); Hemoglobin 12.2 g/dL (12.0-15.0); Lymphocyte # 0.86 X10^3/ul (0.83-4.51); Lymphocyte % 6.2 % (19-41); Mean Corp Hgb Conc 33.6 g/dL (32-36); Mean Corpuscular Hgb 28.6 pg (27.0-32.0); Mean Platelet Vol. 11.2 fl (6.2-12.0); Monocyte# 0.53 X10^3/uL; Monocyte% 3.8 % (0-10); NRBC Flagged by Analyzer 0 % (0-5); Neutrophil # 12.05 X10^3/uL (2.7-7.7); Neutrophil % 86.6 % (47-70); Platelet Count 319 K/mm3 (150-450); RBC Distribution Width CV 13.9 % (11.6-14.6); RBC Distribution Width SD 42.8 fl (35.1-43.9); Red Blood Count 4.27 M/mm3 (4.2-5.4); White Blood Count 13.9 K/mm3 (4.4-11.0)
[2024-08-20 12:29] LABS: Syphilis Antibodies Nonreactive (Nonreactive)
--- NOTE | 2024-08-20 12:50 | HP.PCM.OB_ITS ---
HPI - General General Date of Admission: 08/20/24 HPI Narrative GAVINO BARRIENTOS, is a 29 F @ 39.6 weeks who presents c/o painful contractions. after discussion patient wanted to stay for elective IOL - PFSH PFSH Home Medications ?Medication ?Instructions ?Recorded ?Last Taken ?Type dicyclomine 10 mg capsule 20 mg (2 x 10 mg) PO TIDAC # 20 06/22/21 Unknown Rx CAPSULES ondansetron 4 mg disintegrating 4 mg PO Q8H PRN PRN Na usea #10 tabs 06/22/21 Unknown Rx tablet aspirin 81 mg capsule 81 mg PO DAILY 08/20/2407/10 History cholecalciferol (vitamin D3) 25 25 mcg PO DAILY 08/19/24 History mcg (1,000 unit) capsule vitamin#30 30 mg iron-10 1 cap PO DAILY pregn teetee 08/20/24 08/19/24 History mg iron-folic acid 1 mg-omg3 capsule Allergy/AdvReac Type Severity Reaction Status Date / Time No Known Allergies Allergy Verified 08/20/24 07:52 Surgical History (Updated 08/20/24 @ 11:27 by Karli Calabrese) History of surgery Social History Smoking Status: Never smoker History Elective abortions Hx Para 0 Spontaneous abortions Hx # Term Pregnancies Ectopic pregnancies Hx # Pregnancies Multiple births # of living children NST FHR Rate Baby A Baseline: 130 Variability:: Moderate Accelerations:: 15 x 15 Decelerations:: None NST Reactive:: Yes FHR Category:: Category I Uterine Activity:: q2-4min Vital Signs Vital Signs Vital Signs: 08/20/24 07:59 08/20/24 07:59 08/20/24 08:01 Temperature Temperature Source Temporal Pulse Rate 108 H Respiratory Rate Blood Pressure 104/63 BP Systolic 104 BP Diastolic 63 Pulse Ox 08/20/24 08:01 08/20/24 08:01 08/20/24 11:37 Temperature 97.0 F L Temperature Source Pulse Rate Respiratory Rate 16 Blood Pressure 131/75 H BP Systolic 131 BP Diastolic 75 Pulse Ox 08/20/24 11:37 08/20/24 11:38 08/20/24 11:38 Temperature Temperature Source Temporal Pulse Rate 89 Respiratory Rate 16 Blood Pressure BP Systolic BP Diastolic Pulse Ox 08/20/24 11:38 08/20/24 11:38 Temperature 97.2 F L Temperature Source Pulse Rate Respiratory Rate Blood Pressure BP Systolic BP Diastolic Pulse Ox 98 Weight Weight: 83.178 kg Body Mass Index (BMI) 29.1 Physical Exam Narrative VE: 04[birth year]79/-3 AROM performed- thick meconium Const alert and oriented x3 General Appearance: cooperative HEENT normocephalic GI GI Narrative: Gravid, non tender to palpation. OB / External & Speculum: external exam normal Extremity normal to inspection Skin no rashes or lesions noted Neuro oriented x3 and CN's II-XII intact bilaterally Psych Appearance: grossly normal Labs Labs Labs: Blood Type A NEGATIVE Antibody Screen NEGATIVE Hct 36.3 % (37-47) L Hgb 12.2 g/dL (12.0-15.0) Syphilis Total Ab Nonreactive (Nonreactive) Rubella IgG Antibody Reactive (Nonreactive) Hep Bs Antigen Non-Reactive (Nonreactive) Hepatitis C Antibody Non-Reactive (Nonreactive) HIV 1&2 Antibody Preliminary Reactive (Nonre active) H Miscellaneous Test Assessment & Plan (1) 39 weeks gestation of : (2) Meconium in amniotic fluid affecting management of mother in third trimester: PLAN: Plan Admit to L&D Montior FHR/TOCO Epidural if requested for pain Monitor VS Anticipate Pitocin if indicated AROM performed- thick meconium - PEDS to be notified
[2024-08-20] MEDS: fentaNYL-bupivacaine (epidural) 100 ML BAG EPIDURAL ×3 (13:36→23:06)
[2024-08-20] MEDS: Oxytocin 15 Units/NS 250ml 15 UNITS/250 ML IV.SOLN 2 UNITS IV (15:20)
[2024-08-20] MEDS: Lactated Ringers 1,000 ML 200 ML IV ×2 (17:55→23:06)
--- NOTE | 2024-08-20 18:59 | PCM.PN.OB ---
Subjective Subjective IUPC placed without difficulty. 4 cm/90/-2 Cat 2 Objective Data Objective Data Vital Signs: Vital Signs Temp Pulse Resp BP Pulse Ox 97.9 F 85 17 115/66 100 08/20/24 18:51 08/20/24 18:51 08/20/24 18:51 08/20/24 18:51 08/20/24 18:02 Weight: 83.178 kg Body Mass Index (BMI) 29.1 Intake & Output: Intake and Output for Last 24 Hours 08/18/24 08/19/24 08/20/24 23:59 23:59 23:59 Intake Total Balance Lab / Micro Data 08/20/24 11:25 Labs: Laboratory Results - last 24 hr 08/20/24 11:25: WBC 13.9 H, RBC 4.27, Hgb 12.2, Hct 36.3 L, MCV 85.0, MCH 28.6, MCHC 33.6, RDW Std Deviation 42.8, RDW Coeff of Jennifer 13.9, Plt Count 319, MPV 11.2, Immature Gran % (Auto) 2.500 H, Neut % (Auto) 86.6 H, Lymph % (Auto) 6.2 L, Bennett % (Auto) 3.8, Eos % (Auto) 0.5, Baso % (Auto) 0.4, Absolute Neuts (auto) 12.1 H, Absolute Lymphs (auto) 0.86, Nucleated RBC % 0, Syphilis Total Ab Nonreactive, Blood Type A NEGATIVE, Antibody Screen NEGATIVE NST FHR Rate Baby A Baseline: 140 Variability:: Moderate Accelerations:: 15 x 15 Decelerations:: Early and Variable FHR Category:: Category II Assessment & Plan (1) Meconium in amniotic fluid affecting management of mother in third trimester: (2) 39 weeks gestation of :
--- OUTSIDE RECORDS SUMMARY | 2024-08-20 20:53 | XMS RPT_ITS | CCD ---
Author Organization [facility] Care Team Providers Care Ladder Operator Name Role Phone JEANCARLOS GOLDSTEIN GENE Unavailable [...] Lorenzo Del Toro DO Primary Care Provider Kwong MAIL CARRIER.Kaitlynn MARTINEZ Unavailable Fanny MAIL CARRIER.Jocelyne MARTINEZ Unavailable Lorenzo Del Toro Referring Unavailable Lorenzo Del Toro Attending Unavailable Lorenzo Del Toro Primary Care Unavailable Kwong MAIL CARRIER.Kaitlynn MARTINEZ Unavailable LORENZO DEL TORO Primary Care [...] of ; Translations: [36 weeks gestation of ([facility])] Onset: 07-28-2024 Episodic Residual codes; unclassified (1 source) Unspecified blood type, Rh negative; Translations: [Rh negative state in antepartum period ([facility])] Onset: 07-28-2024 Episodic Residual codes; unclassified (1 source) 35 weeks gestation of ; Translations: [35 weeks gestation of ([facility])] Onset: 07-20-2024 Episodic Residual codes; unclassified (1 source) 33 weeks gestation of ; Translations: [33 weeks gestation of ([facility])] Onset: 07-06-2024 Episodic Residual codes; unclassified (1 [...] 5 Glucose Ql (U) Negative Neg mg/dL [facility] Protein.monoclonal (U) [Mass/Vol] Negative Neg mg/dL [facility] ROUTINE, GROUP B ST REPTOCOCCUS BY PCRon 07-28-2024 ROUTINE, GROUP B STREPTOCOCCUS BY PCR Not detected Normal [facility] Comment on above: Performed By: #### G BPCR ####[facility] LABCLIA [id number] [place] [address] [place] URINE OB DIP B/Oon 5 Glucose Ql (U) Negative Neg mg/dL [facility] Interpretation and review of laboratory results Normal [facility] Protein.monoclonal (U) [Mass/Vol] Negative Neg mg/dL [facility] CBC W Auto Differential pane l (Bld)on 05-27-2024 Basophils (Bld) [#/Vol] 0.03 10*3/uL Normal <0.11 [facility] Comment on above: Order Comment: Becca saenz Type: BLOOD SPECIMENOrdering Facility: [facility] Address: [address] [place] [address] Performed By: #### 5 7021-8 ####[facility] [id number] [place] [address] [place] Basophils/100 WBC (Bld) 0.3 % Normal [facility] Comment on above: Order Comment: Speci men Type: BLOOD SPECIMENOrdering Facility: [facility] Address: [address] [place] [address] Performed By: #### 5 7021-8 ####[facility] ULI [id number] [place] [address] [place] Differential cell count method Nom (Bld) Auto Normal [facility] Comment on above: Order Comment: Speci men Type: BLOOD SPECIMENOrdering Facility: [facility] Address: [address] [place] [address] Performed By: #### 5 7021-8 ####[facility]ITALNCJUVENCIO [id number] [place] [address] [place] Eosinophils (Bld) [#/Vol] 0.19 10*3/uL Normal <0.46 [facility] Comment on above: Order Comment: Speci men Type: BLOOD SPECIMENOrdering Facility: [facility] Address: [address] [place] [address] Performed By: #### 5 7021-8 ####[facility]ITALNCJOSELINEA [id number] [place] [address] [place] Eosinophils/100 WBC (Bld) 2.0 % Normal [facility] Comment on above: Order Comment: Speci men Type: BLOOD SPECIMENOrdering Facility: [facility] Address: [address] [place] [address] Performed By: #### 5 7021-8 ####[facility]ITALNCLIA [id number] [place] [address] [place] Erythrocyte distribution width (RBC) [Ratio] 13.0 % Normal 11.5-15.0 [facility] Comment on above: Order Comment: Speci men Type: BLOOD SPECIMENOrdering Facility: [facility] Address: [address] [place] [address] Performed By: #### 5 7021-8 ####[facility]OSPITALMENDYLIA [id number] [place] [address] [place] Hematocrit (Bld) [Volume fraction] 34.9 % Low 36.0-46.0 [facility] Comment on above: Order Comment: Speci men Type: BLOOD SPECIMENOrdering Facility: [facility] Address: [address] [place] [address] Performed By: #### 5 7021-8 ####[facility] HOSPITALOZZIE [id number] [place] [address] [place] Hemoglobin (Bld) [Mass/Vol] 11.8 g/dL Normal 11.5-15.5 [facility] Comment on above: Order Comment: Speci men Type: BLOOD SPECIMENOrdering Facility: [facility] Address: [address] [place] [address] Performed By: #### 5 7021-8 ####[facility] [id number] [place] [address] [place] Immature granulocytes (Bld) [#/Vol] 0.05 10*3/uL Normal <0.10 [facility] Comment on above: Order Comment: Speci men Type: BLOOD SPECIMENOrdering Facility: [facility] Address: [address] [place] [address] Performed By: #### 5 7021-8 ####[facility]PITALA [id number] [place] [address] [place] Immature granulocytes/100 WBC (Bld) 0.5 % Normal [facility] Comment on above: Order Comment: Speci men Type: BLOOD SPECIMENOrdering Facility: [facility] Address: [address] [place] [address] Performed By: #### 5 7021-8 ####[facility]ITALNCLIA [id number] [place] [address] [place] Lymphocytes (Bld) [#/Vol] 1.26 10*3/uL Normal 1.00-4.00 [facility] Comment on above: Order Comment: Speci men Type: BLOOD SPECIMENOrdering Facility: [facility] Address: [address] [place] [address] Performed By: #### 5 7021-8 ####[facility]ITALA [id number] [place] [address] [place] Lymphocytes/100 WBC (Bld) 13.4 % Normal [facility] Comment on above: Order Comment: Speci men Type: BLOOD SPECIMENOrdering Facility: [facility] Address: [address] [place] [address] Performed By: #### 5 7021-8 ####[facility] [id number] [place] [address] [place] MCH (RBC) [Entitic mass] 29.4 pg Normal 26.0-34.0 [facility] Comment on above: Order Comment: Speci men Type: BLOOD SPECIMENOrdering Facility: [facility] Address: [address] [place] [address] Performed By: #### 5 7021-8 ####[facility] [id number] [place] [address] [place] MCHC (RBC) [Mass/Vol] 33.8 g/dL Normal 30.5-36.0 [facility] Comment on above: Order Comment: Speci men Type: BLOOD SPECIMENOrdering Facility: [facility] Address: [address] [place] [address] Performed By: #### 5 7021-8 ####[facility] [id number] [place] [address] [place] MCV (RBC) [Entitic vol] 86.8 fL Normal 80.0-100.0 [facility] Comment on above: Order Comment: Speci men Type: BLOOD SPECIMENOrdering Facility: [facility] Address: [address] [place] [address] Performed By: #### 5 7021-8 ####[facility] RANDALLIA [id number] [place] [address] [place] Monocytes (Bld) [#/Vol] 0.60 10*3/uL Normal <0.87 [facility] Comment on above: Order Comment: Speci men Type: BLOOD SPECIMENOrdering Facility: [facility] Address: [address] [place] [address] Performed By: #### 5 7021-8 ####[facility] RES[facility]ARCH INSTITUTEWMENDYLIA [id number] [place] [address] [place] Monocytes/100 WBC (Bld) 6.4 % Normal [facility] Comment on above: Order Comment: Speci men Type: BLOOD SPECIMENOrdering Facility: [facility] Address: [address] [place] [address] Performed By: #### 5 7021-8 ####[facility]PITALMENDYLIA [id number] [place] [address] [place] Neutrophils (Bld) [#/Vol] 7.24 10*3/uL Normal 1.45-7.50 [facility] Comment on above: Order Comment: Speci men Type: BLOOD SPECIMENOrdering Facility: [facility] Address: [address] [place] [address] Performed By: #### 5 7021-8 ####[facility] RESEARCH INSTITUTEWNCLIA [id number] [place] [address] [place] Neutrophils/100 WBC (Bld) 77.4 % Normal [facility] Comment on above: Order Comment: Speci men Type: BLOOD SPECIMENOrdering Facility: [facility] Address: [address] [place] [address] Performed By: #### 5 7021-8 ####[facility]PITALLIA [id number] [place] [address] [place] Nucleated RBC (Bld) [#/Vol] 10*3/uL Normal <0.01 [facility] Comment on above: Order Comment: Speci men Type: BLOOD SPECIMENOrdering Facility: [facility] Address: [address] [place] [address] Performed By: #### 5 7021-8 ####[facility] [id number] [place] [address] [place] Nucleated RBC/100 WBC (Bld) [Ratio] 0.0 /100 WBC Normal [facility] Comment on above: Order Comment: Speci men Type: BLOOD SPECIMENOrdering Facility: [facility] Address: [address] [place] [address] Performed By: #### 5 7021-8 ####[facility] [id number] [place] [address] [place] Platelet mean volume (Bld) [Entitic vol] 9.1 fL Normal 9.0-12.7 [facility] Comment on above: Order Comment: Speci men Type: BLOOD SPECIMENOrdering Facility: [facility] Address: [address] [place] [address] Performed By: #### 5 7021-8 ####[facility] [id number] [place] [address] [place] Platelets (Bld) [#/Vol] 313 10*3/uL Normal 150-400 [facility] Comment on above: Order Comment: Speci men Type: BLOOD SPECIMENOrdering Facility: [facility] Address: [address] [place] [address] Performed By: #### 5 7021-8 ####[facility]OSPITALLI [id number] [place] [address] [place] RBC (Bld) [#/Vol] 4.02 10*6/uL Normal 3.90-5.20 [facility] Comment on above: Order Comment: Speci men Type: BLOOD SPECIMENOrdering Facility: [facility] Address: [address] [place] [address] Performed By: #### 5 7021-8 ####[facility]PITALNCVALLEY [facility]IEW [facility] [id number] [place] [address] [place] WBC (Bld) [#/Vol] 9.37 10*3/uL Normal 3.70-11.00 [facility] Comment on above: Order Comment: Speci men Type: BLOOD SPECIMENOrdering Facility: [facility] Address: [address] [place] [address] Performed By: #### 5 7021-8 ####[facility] [id number] [place] [address] [place] GESTATIONAL GLUCOSE SCREEN, 1-HOUR, 50 GRAM, NON-FASTINGon 05-27-2024 Glucose [Mass/Vol] 119 mg/dL Normal 74-134 [facility] Comment on above: Order Comment: Speci men Type: BLOOD SPECIMENOrdering Facility: [facility] Address: [address] [place] [address] Result Comment: [facility] Congress of Obstetricians and Gynecologists (Andersen/Yajaira) guidelines state a gestational diabetes mellitus positive screen is made, in women not previously diagnosed with overt diabetes, when the 1 hr plasma glucose level is equal to or above 140 mg/dL. The [facility] Senior Tableau Developer and Women's Health Loiza recommends a 135 mg/dL cutoff. Performed By: #### G LTGST ####[facility] [id number] [place] [address] [place] Reagin and Treponema pallidu m IgG and IgM [Interp]on 05-27-2024 T. pallidum IgG+IgM IA Ql (S) Non-Reactive Normal Nonreactive [facility] Comment on above: Order Comment: Speci men Type: BLOOD SPECIMENOrdering Facility: [facility] Address: [address] [place] [address] Performed By: #### 7 3752-8 ####[facility] LABCLIA [id number] [place] [address] [place] Reagin+T pallidum IgG+IgM Se rPl-Impon 05-27-2024 Reagin and Treponema pallidum IgG and IgM [Interp] Cannot exclude recent Treponemal infection if specimen collected within 7-10 days after appearance of suspect lesions or 2-3 weeks after an exposure. Clinical correlation is required. Normal [facility] Comment on above: Order Comment: Speci men Type: BLOOD SPECIMENOrdering Facility: [facility] Address: [address] [place] [address] Performed By: #### 7 3752-8 ####[facility] LABCLIA [id number] [place] [address] [place] TYPE + SCREEN PRENATALon ABO A Normal [facility] Comment on above: Order Comment: Speci men Type: BLOOD SPECIMEN [facility] Address: [address] [place] [address] Performed By: #### T SPN #### [facility] CLIA [id number] [address] [place] [address] [place] Rh Nom (Bld) Negative Normal [facility] Comment on above: Order Comment: Speci men Type: BLOOD SPECIMEN [facility] Address: [address] [place] [address] Performed By: #### T SPN #### [facility] CLIA [id number] [address] [place] [address] [place] TYPE AND SCREEN EXPIRATION 05/30/2024 23:59 Normal [facility] Comment on above: Order Comment: Speci men Type: BLOOD SPECIMEN [facility] Address: [address] [place] [address] Performed By: #### T KYARAN #### [facility] B[facility]OD BANK [facility] [id number] [address] [place], [place] [address] [address] OF [facility] Examination level ultrasound on 04-03-2024 Indication Standard [...] 12 oz EFW by: Hadlock (HC-AC-FL) Extended Disc Pad Knockout Worker 7.3 mm CM 2.6 mm 1% Nicolaides [...] normal LVOT view: normal 3-vessel view: normal 6-hbcqxn-vikplfc view: normal Heart / Thorax Situs: situs [...] Read By: Jenifer Pickard M.D. MATERNAL MEDICINE [facility] Radiology Study observation (narrative) [facility] 03-13-2024 CNPN Telephone (OBGYWM) LYNETTE BARRIENTOS ([id number]) 1995 F Date Time Provider Department 03/13/24 [...] Status:Closed by BEATA DAHL on 03/13/24 [facility] LAB TEST Normal [facility] Comment on above: Order Comment: LAV W [id number] HEMOGLOBIN CASCADE WB/RF Result Comment: TEST RESULTS LIMITS Hgb Fractionation [place] Hgb Fractionation by CE: Hgb F 0.0 % 0.0-2.0 Hgb A 97.0 % 96.4-98.8 Hgb A2 3.0 % 1.8-3.2 Hgb S 0.0 % 0.0 Interpretation: Normal hemoglobin present; no hemoglobin variant or beta thalassemia identified. Note: Alpha thalassemia may not be detected by the Hgb Fractionation [place] panel. If alpha thalassemia is suspected, [facility] offers Alpha-Thalassemia DNA Analysis (#[id number]). TESTING PERFORMED AT [facility]. ORIGINAL REPORT ON FILE IN LAB CONTAINS ADDITIONAL TEST SITE INFORMATION. Performed By: #### L 506.0400, L801.1543, L501.88871, L501.9985, L3890.6005, L509.4005, L801.1541, L509.8000, L3890.6300, L501.9520, L100.0500, BTS, L506.1000, L3890.6100 #### [facility] Laboratory [address] [place], [place], [address] [facility] 02-14-2024 [facility] Telephone (OBGYWM) LYNETTE BARRIENTOS ([id number]) 1995 F Date Time Provider Department 02/14/24 [...] weeks gestation of [Z3A.13] Order(s):NUCHAL TRANSLUCENCY WHI [[id number]] Order #: [id number]: 1 FUTURE Prescriptions as of 02/14/2024 - [...] Status:Closed by BEATA DAHL on 02/14/24 Normal [facility] nuchal translucency me asured by Nahomy 02-14-2024 Indication First trimester anatomic survey Impression 29 yo at 13w0d presenting for 1st trimester anatomy scan. Deferred aneuploidy screening. - Single, live, intrauterine . - Pringle rump length measurement is consistent with the [...] view: normal 4-chamber view with color: normal 9-zcqkkb-ezphwvy view: normal Abdominal cord insertion: normal Stomach: [...] Read By: Xiomara Jackman MD. MATERNAL MEDICINE [facility] Radiology Study observation (narrative) [facility] Miscellaneous Lab Procedure 2on 02-14-2024 [facility] LAB TEST 2 Normal [facility] Comment on above: Order Comment: [id number] [...] INFORMATION. Performed By: #### L 506.0400, L801.1543, L501.25473, L501.9985, L3890.6005, L509.4005, L801.1541, L509.8000, L3890.6300, L501.9520, L100.0500, BTS, L506.1000, L3890.6100 #### [facility] [address] [place], [place], [id number] (210) CBC-Complete Blood Cnt No Di ffon 02-11-2024 Erythrocyte distribution width (RBC) [Ratio] 12.9 % Normal 11.6-14.6 [facility] Comment on above: Performed By: #### L 506.0400, L801.1543, L501.32323, L501.9985, L3890.6005, L509.4005, L801.1541, L509.8000, L3890.6300, L501.9520, L100.0500, BTS, L506.1000, L3890.6100 #### [facility] [address] [place], [address] Hematocrit (Bld) [Volume fraction] 39.7 % Normal 37-47 [facility] Comment on above: Performed By: #### L 506.0400, L801.1543, L501.48708, L501.9985, L3890.6005, L509.4005, L801.1541, L509.8000, L3890.6300, L501.9520, L100.0500, BTS, L506.1000, L3890.6100 #### [facility] [address] [place], [place], [id number] (724) Hemoglobin (Bld) [Mass/Vol] 13.4 g/dL Normal 12.0-15.0 [facility] Comment on above: Performed By: #### L 506.0400, L801.1543, L501.52226, L501.9985, L3890.6005, L509.4005, L801.1541, L509.8000, L3890.6300, L501.9520, L100.0500, BTS, L506.1000, L3890.6100 #### [facility] [address] [facility] [place], [address] MCH (RBC) [Entitic mass] 28.4 pg Normal 27.0-32.0 [facility] Comment on above: Performed By: #### L 506.0400, L801.1543, L501.86358, L501.9985, L3890.6005, L509.4005, L801.1541, L509.8000, L3890.6300, L501.9520, L100.0500, BTS, L506.1000, L3890.6100 #### [facility] [address] [place], [address] MCHC (RBC) [Mass/Vol] 33.8 g/dL Normal 32-36 [facility] Comment on above: Performed By: #### L 506.0400, L801.1543, L501.91683, L501.9985, L3890.6005, L509.4005, L801.1541, L509.8000, L3890.6300, L501.9520, L100.0500, BTS, L506.1000, L3890.6100 #### [facility] [address] [place], [address] MCV (RBC) [Entitic vol] 84.1 fL Normal 81-99 [facility] Comment on above: Performed By: #### L 506.0400, L801.1543, L501.64474, L501.9985, L3890.6005, L509.4005, L801.1541, L509.8000, L3890.6300, L501.9520, L100.0500, BTS, L506.1000, L3890.6100 #### [facility] [address] [place], [address] Platelet mean volume (Bld) [Entitic vol] 9.6 fL Normal 6.2-12.0 [facility] Comment on above: Performed By: #### L 506.0400, L801.1543, L501.20338, L501.9985, L3890.6005, L509.4005, L801.1541, L509.8000, L3890.6300, L501.9520, L100.0500, BTS, L506.1000, L3890.6100 #### [facility] [address] [place], [address] Platelets (Bld) [#/Vol] 290 10*3/uL Normal 150-450 [facility] Comment on above: Performed By: #### L 506.0400, L801.1543, L501.58499, L501.9985, L3890.6005, L509.4005, L801.1541, L509.8000, L3890.6300, L501.9520, L100.0500, BTS, L506.1000, L3890.6100 #### [facility] [address] [place], [address] RBC (Bld) [#/Vol] 4.72 10*6/uL Normal 4.2-5.4 [facility] Comment on above: Performed By: #### L 506.0400, L801.1543, L501.52462, L501.9985, L3890.6005, L509.4005, L801.1541, L509.8000, L3890.6300, L501.9520, L100.0500, BTS, L506.1000, L3890.6100 #### [facility] [address] [place], [address] RDW SD 39.5 fl Normal 35.1-43.9 [facility] Comment on above: Performed By: #### L 506.0400, L801.1543, L501.84074, L501.9985, L3890.6005, L509.4005, L801.1541, L509.8000, L3890.6300, L501.9520, L100.0500, BTS, L506.1000, L3890.6100 #### [facility] [address] [place], [place], [id number] WBC (Bld) [#/Vol] 6.3 10*3/uL Normal 4.4-11.[address] [facility] Comment on above: Performed By: #### L 506.0400, L801.1543, L501.46758, L501.9985, L3890.6005, L509.4005, L801.1541, L509.8000, L3890.6300, L501.9520, L100.0500, BTS, L506.1000, L3890.6100 #### [facility] [address] [place], [place], [id number] [facility] Telephone (INTMWS) LYNETTE BARRIENTOS ([id number]) 1995 F Date Time Provider Department 02/11/24 JESSA MACKENZIE INTMWS During your visit today, we recorded the following information about you: Jessa Mackenzie MD 02/11/2024 7:12 PM Signed Paged to [facility] about critical value. Preliminary HIV + and will be getting conformation Forwarding to PCP to address Lorenzo Del Toro DO 02/12/2024 6:43 AM Signed Please obtain these lab results and forward to OBGYN DO [place] Tay Sue E, LPN 02/12/2024 8:55 AM Signed Results scanned to patient chart. Will forward message to traveling repair accountant provider, per PCP request. ASH Shaw Jessica, APRN.CNM 02/12/2024 9:06 AM Signed Can you please get confirmation screen from lab or see when will be expected. Thank you, BALDO Castillo Jennifer, RN 02/12/2024 9:48 AM Signed Spoke with [facility] lab. This will take several days with the holiday. It should be sent out to [facility] today. PETEY Alvarado Jennifer, RN 02/17/2024 2:18 PM Signed View External Labs - Chemistry [ID [id number]] Malia Romero APRN.CNM 02/17/2024 3:45 PM Signed HIV negative. Please update record. BALDO Castillo Tara, RN 02/17/2024 3:56 PM Signed Copy of episode sent to [facility] including external lab results attached below. Yandel [...] Status:Closed by YANDEL SANTIAGO on 02/17/24 [facility] T3on 02-11-2024 Free T3 [Mass/Vol] 2.3 pg/mL Normal 2.18-3.[address] [facility] Comment on above: Performed By: #### L 506.0400, L801.1543, L501.27423, L501.9985, L3890.6005, L509.4005, L801.1541, L509.8000, L3890.6300, L501.9520, L100.0500, BTS, L506.1000, L3890.6100 #### [facility] [address] [place], [place], [id number] HIV - WCHon 02-11-2024 HIV Preliminary Reactive Abnormal Nonreactive [facility] Comment on above: Result Comment: Crit ical Result(s) Called at: 18:58:45 02/11/2024 by: Shefali Bull to Dr Mackenzie. Results read back by same. SEND OUT PRESUMPTIVE REACTIVE SPECIMENS TO [facility] TEST NUMBER [id number] FOR CONFIRMATION. Performed By: #### L 506.0400, L801.1543, L501.27119, L501.9985, L3890.6005, L509.4005, L801.1541, L509.8000, L3890.6300, L501.9520, L100.0500, BTS, L506.1000, L3890.6100 #### [facility] [address] [place], [place], [id number] Hemoglobin A1con 02-11-2024 HbA1c (Bld) [Mass fraction] 5.3 % Normal 3.8-5.6 [facility] Comment on above: Result Comment: Norm al < 5.7 % Prediabetic 5.7 - 6.4 % Diabetic >or= 6.5 % Please note range changes. Performed By: #### L 506.0400, L801.1543, L501.40784, L501.9985, L3890.6005, L509.4005, L801.1541, L509.8000, L3890.6300, L501.9520, L100.0500, BTS, L506.1000, L3890.6100 #### [facility] [address] [place], [place], [id number] Hepatitis B Surface Antigeno n 02-11-2024 HEP B Surf Ag Non-Reactive Normal Nonreactive [facility] Comment on above: Performed By: #### L 506.0400, L801.1543, L501.67066, L501.9985, L3890.6005, L509.4005, L801.1541, L509.8000, L3890.6300, L501.9520, L100.0500, BTS, L506.1000, L3890.6100 #### [facility] [address] [place], [address] Hepatitis C Antibodyon 02-10 Hepatitis C AB Non-Reactive Normal Nonreactive [facility] Comment on above: Result Comment: Non Reactive: < 0.8 Equivocal: >/= 0.8 to < 1.0 Reactive: >/= 1.0 The CDC requires that a reactive/equivocal HCV antibody result be sent out for confirmation. HCV Quant by PCR testing. Performed By: #### L 506.0400, L801.1543, L501.11820, L501.9985, L3890.6005, L509.4005, L801.1541, L509.8000, L3890.6300, L501.9520, L100.0500, BTS, L506.1000, L3890.6100 #### [facility] [address] [place], [address] L509.8000on 02-11-2024 Syphilis Abs Non-Reactive Normal [facility] Comment on above: Performed By: #### L 506.0400, L801.1543, L501.76632, L501.9985, L3890.6005, L509.4005, L801.1541, L509.8000, L3890.6300, L501.9520, L100.0500, BTS, L506.1000, L3890.6100 #### [facility] [address] [place], [address] Rubella IgGon 02-11-2024 Rubella IgG Reactive Normal Nonreactive [facility] Comment on above: Result Comment: Anti body Results Interpretation of Immune Status Non Reactive Presumed Non-Immune Equivocal Equivocal Reactive Presumed Immune Performed By: #### L 506.0400, L801.1543, L501.60895, L501.9985, L3890.6005, L509.4005, L801.1541, L509.8000, L3890.6300, L501.9520, L100.0500, BTS, L506.1000, L3890.6100 #### [facility] [address] [place], [address] T4 Free Directon 02-11-2024 T4 FREE DIRECT 2.29 ng/dL High 0.76-1.46 [facility] Comment on above: Performed By: #### L 506.0400, L801.1543, L501.93810, L501.9985, L3890.6005, L509.4005, L801.1541, L509.8000, L3890.6300, L501.9520, L100.0500, BTS, L506.1000, L3890.6100 #### [facility] [address] [place], [address] Thyroid Stim Hormone (TSH)on 02-11-2024 TSH 2.290 uIU/mL Normal 0.358-3.740 [facility] Comment on above: Performed By: #### L 506.0400, L801.1543, L501.01720, L501.9985, L3890.6005, L509.4005, L801.1541, L509.8000, L3890.6300, L501.9520, L100.0500, BTS, L506.1000, L3890.6100 #### [facility] [address] [place], [place], [id number] Type AND Screenon 02-11-2024 ABO and Rh group Nom (Bld) Blood group A Rh(D) negative Normal [facility] Comment on above: Order Comment: PN Performed By: #### L 506.0400, L801.1543, L501.88445, L501.9985, L3890.6005, L509.4005, L801.1541, L509.8000, L3890.6300, L501.9520, L100.0500, BTS, L506.1000, L3890.6100 #### [facility] [address] [place], [place], [id number] Vitamin D,25 Hydroxyon 02-10 Vitamin D 25-OH 38.5 ng/mL Normal [facility] Comment on above: Result Comment: Jeanne min D 25(OH) Status Range Deficiency <20 ng/mL (50nmol/L) Insufficiency 20 - 30 ng/mL (50 - 75 nmol/L) Sufficiency 30 - 100 ng/mL (75 - 250 nmol/L) Toxicity >100 ng/mL (>250 nmol/L) Performed By: #### L 506.0400, L801.1543, L501.84738, L501.9985, L3890.6005, L509.4005, L801.1541, L509.8000, L3890.6300, L501.9520, L100.0500, BTS, L506.1000, L3890.6100 #### [facility] [address] [place], [address] OVon 01-21-2024 [facility] Office Visit (FAMPWS ) LYNETTE BARRIENTOS ([id number]) 1995 F Date Time Provider Department 01/21/24 1:00 PM [facility] During your visit today, we [...] with the plan. Lorenzo Del Toro DO [address] [place] [address] Allergies As of Date: 01/21/2024 (No Known Allergies) Date Reviewed: 01/21/2024 Reviewed by: Grecia Gaspar LPN - Fully Assessed Reason for Visit: Yearly Exam [187] Primary Visit Diagnosis:Well adult exam [Z00.00] Other Visit Diagnosis:9 weeks gestation of [Z3A.09] Order(s):VITAMIN D 25 HYDROXY [SQVITD] Order #: [id number] FUTURE THYROID STIMULATING HORMONE [SQTSH] Order #: [id number] FUTURE T4 FREE/FREE THYROXINE [SQFT4] Order #: [id number] FUTURE T3, FREE [SQFREET3] Order #: [id number] FUTURE Prescriptions as of 01/21/2024 - aspirin, [...] pregn*01/07/2024 Encounte (more content not included)... Normal [facility] Bacteria Ur Culton Bacteria identified Cx Nom (U) ORGANISM ID: 1 <10,000 CFU/ml Mixed microbiota No further workup Normal [facility] Comment on above: Performed By: #### 6 30-4 ####[facility] LABCLIA [id number] [place] [address] [place] C. trachomatis+N. gonorrhoea e DNA SRINIVAS+probe Ql (Unsp spec)on 01-07-2024 C. trachomatis rRNA SRINIVAS+probe Ql (Unsp spec) Negative Normal Negative for Chlamydia trachomatis by amplificaton [facility] Comment on above: Order Comment: Speci men Type: SWABOrdering Facility: [facility] Address: [address] [place] [address] Performed By: #### 3 6902-5 ####[facility] LABCLIA [id number] [address] [place] N. 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 Confirmation of [...] Read By: Malia Romero CNM MATERNAL MEDICINE [facility] Radiology Study observation (narrative) [facility] Absolute lymphocyte counton 06-22-2021 Lymphocytes Auto (Unsp spec) [#/Vol] 0.73 10*3/uL 0.83-4.51 [facility] Work Phone: Basophil percentageon 2021 Basophil percentage 0-5 SEEN /hpf [facility] Work Phone: Basophils/100 WBC (Bld) 0.5 % 0-1 [facility] Work Phone: Bilirubin [Mass/Vol] 0.30 mg/dL 0.20-1.00 [facility] Work Phone: Comment on above: For patients on eltr ombopag therapy, use of Dimension [employer] TBIL is not recommended. Chloride [Moles/Vol] 109 mmol/L 98-107 [facility] Work Phone: Eosinophils/100 WBC (Bld) 0.5 % 0-5 [facility] Work Phone: Glucose [Mass/Vol] 96 mg/dL 74-[address] [facility] Work Phone: Neutrophils (Bld) [#/Vol] 2.9 10*3/uL 2.0-7.7 [facility] Work Phone: Neutrophils/100 WBC (Bld) 71.4 % 47-70 [facility] Work Phone: Potassium [Moles/Vol] 3.8 mmol/L 3.5-5.1 [facility] Work Phone: Protein [Mass/Vol] 8.1 g/dL 6.4-8.[address] [facility] Work Phone: Sodium [Moles/Vol] 136 mmol/L 136-[address] [facility] Work Phone: WBC (Bld) [#/Vol] 4.0 10*3/uL 4.4-11.[address] [facility] Work Phone: Beta hCG serum qualon 2021 Beta HCG ( test) Ql Negative [facility] Work Phone: Bilirubin Test strip Ql (U)o n 06-22-2021 Bilirubin Ql (U) 1 mg/dL Negative [facility] Work Phone: [phone] Comment on above: COLOR OF URINE MAY A FFECT DIPSTICK RESULTS. Blood erythrocytes count (nu mber/volume)on 06-22-2021 RBC (Bld) [#/Vol] 5.28 10*6/uL 4.2-5.4 [facility] Work Phone: Blood hemoglobin measurement (mass/volume)on 06-22-2021 Hemoglobin (Bld) [Mass/Vol] 15.1 g/dL 12.0-15.0 [facility] Work Phone: Blood lymphocytes/100 leukoc yteson 06-22-2021 Lymphocytes/100 WBC (Bld) 18.2 % 19-41 [facility] Work Phone: Blood monocytes/100 leukocyt eson 06-22-2021 Monocytes/100 WBC (Bld) 9.2 % 0-10 [facility] Work Phone: Blood platelet mean volumeon 06-22-2021 Platelet mean volume (Bld) [Entitic vol] 9.3 fL 6.2-12.0 [facility] Work Phone: [phone] Calcium oxalate crystals det ection in urine sediment by light microscopyon 06-22-2021 Calcium oxalate crystals LM Ql (Urine sed) 1+ /hpf [facility] Work Phone: [phone] Determination of erythrocyte mean corpuscular volume (MCV)on 06-22-2021 MCV (RBC) [Entitic vol] 83.0 fL 81-99 [facility] Work Phone: [phone] Hematocrit Auto (Bld) [Volum e fraction]on 06-22-2021 Hematocrit (Bld) [Volume fraction] 43.8 % 37-47 [facility] Work Phone: [phone] Ketones Test strip Ql (U)on 06-22-2021 Ketones Ql (U) 50 mg/dl Negative [facility] Work Phone: Laboratory - Chemistry and C hemistry - challengeon 06-22-2021 ALP [Catalytic activity/Vol] 65 U/L 45-117 [facility] Work Phone: [phone] ALT [Catalytic activity/Vol] 20 U/L 13-56 [facility] Work Phone: [phone] CO2 [Moles/Vol] 22.0 mmol/L 21.0-32.0 [facility] Work Phone: [phone] Globulin (S) [Mass/Vol] 3.9 g/dL 2.2-4.2 [facility] Work Phone: [phone] Lipase [Catalytic activity/Vol] 91 U/L 73-393 [facility] Work Phone: [phone] Urea nitrogen/Creatinine [Mass ratio] 15.9 mg/mg 10-20 [facility] Work Phone: [phone] Laboratory - Hematology and Cell countson 06-22-2021 Erythrocyte distribution width (RBC) [Entitic vol] 37.3 fL 35.1-43.9 [facility] Work Phone: [phone] Erythrocyte distribution width (RBC) [Ratio] 12.2 % 11.6-14.6 [facility] Work Phone: [phone] Immature granulocytes/100 WBC (Bld) 0.200 % 0.0-0.9 [facility] Work Phone: [phone] Comment on above: IG% - Immature Granu locytes (promyelocytes, myelocytes and metamyelocytes) > 1% indicates that a LEFT SHIFT is Present. MCH (RBC) [Entitic mass] 28.6 pg 27.0-32.0 [facility] Work Phone: [phone] Nucleated RBC/100 WBC (Bld) [Ratio] 0 % 0-5 [facility] Work Phone: [phone] MCHC Auto (RBC) [Mass/Vol]on 06-22-2021 MCHC (RBC) [Mass/Vol] 34.5 g/dL 32-36 [facility] Work Phone: [phone] Mucus LM Ql (Urine sed)on Mucus Ql (Urine sed) 0 SEEN /hpf [facility] Work Phone: Nitrite Test strip Ql (U)on 06-22-2021 Nitrite Ql (U) Negative Negative [facility] Work Phone: No Panel Informationon 06-22 Estimated Creatinine Clearance Calc 94.21 ml/min [facility] Work Phone: Estimated GFR (MDRD) Amer 99 mL/min >60 [facility] Work Phone: Comment on above: GFR Calc Estimated GFR (MDRD) Non-Af Amer 82 mL/min >60 [facility] Work Phone: Comment on above: Non- GFR Calc Platelets bldon 06-22-2021 Platelets (Bld) [#/Vol] 283 10*3/uL 150-450 [facility] Work Phone: [phone] Protein Test strip Ql (U)on 06-22-2021 Protein Ql (U) 30 mg/dl Negative [facility] Work Phone: [phone] Serum or plasma albumin leta urement (mass/volume)on 06-22-2021 Albumin [Mass/Vol] 4.2 g/dL 3.2-5.[address] [facility] Work Phone: [phone] Serum or plasma albumin/glob ulin mass ratioon 06-22-2021 Albumin/Globulin [Mass ratio] 1.1 {ratio} 0.9-2.4 [facility] Work Phone: [phone] Serum or plasma calcium leta urement (mass/volume)on 06-22-2021 Calcium [Mass/Vol] 9.4 mg/dL 8.5-10.[address] [facility] Work Phone: [phone] Serum or plasma creatinine m easurement (mass/volume)on 06-22-2021 Creatinine [Mass/Vol] 0.88 mg/dL 0.55-1.02 [facility] Work Phone: Comment on above: The validity of the calculated GFR & GFRAA in patients over 70 years has not been determined. Clinical correlation is essential. Serum or plasma urea nitroge n measurement (mass/volume)on 06-22-2021 Urea nitrogen [Mass/Vol] 14 mg/dL 7-18 [facility] Work Phone: Squamous epithelial cells de tection in urine sediment by light microscopyon 06-22-2021 Epithelial cells.squamous LM Ql (Urine sed) 5-10 SEEN /hpf [facility] Work Phone: Thin prep Papanicolaou smear with manual screeningon 06-22-2021 Thin prep Papanicolaou smear with manual screening 15 U/L 15-37 [facility] Work Phone: Thin prep Papanicolaou smear with manual screening 5 5-15 [facility] Work Phone: Urine blood detectionon 04-0 RBC Ql (U) 10 /ul Negative [facility] Work Phone: RBC Ql (U) 0-5 SEEN /hpf [facility] Work Phone: Urine clarityon 06-22-2021 Clarity (U) Sl. Cloudy Clear [facility] Work Phone: Urine color determinationon 06-22-2021 Color (U) Cailin Yellow [facility] Work Phone: Urine glucose detectionon Glucose Ql (U) Normal mg/dl Normal [facility] Work Phone: Urine leukocyte esterase det ection by dipstickon 06-22-2021 Leukocyte esterase Test strip Ql (U) Negative Negative [facility] Work Phone: Urine pHon 06-22-2021 pH (U) 5.0 [pH] [facility] Work Phone: Urine sediment bacteria coun t by microscopy (number/high power field)on 06-22-2021 Bacteria LM.HPF (Urine sed) [#/Area] 2 /[HPF] None Seen [facility] Work Phone: Urine specific gravity measu rementon 06-22-2021 Specific gravity (U) [Rel density] 1.030 [facility] Work Phone: Urobilinogen Auto test strip Ql (U)on 06-22-2021 Urobilinogen Ql (U) Normal mg/dl Normal [facility] Work Phone: Laboratory - Microbiology an d Antimicrobial susceptibilityon 03-14-2021 SARS-CoV-2 (COVID-19) RNA SRINIVAS+probe Ql (Unsp spec) Not detected [facility] Work Phone: Vital Signs Date Time Vital Sign Value Performing Clinician Facility 08-11-2024 08:04-0400 Body mass index (BMI) [Ratio] 28.91 kg/m2 April Yates MD Work Phone: [facility] 08-11-2024 08:04-0400 Body weight 82.56 kg April Yates MD Work Phone: [facility] 08-11-2024 08:04-0400 Diastolic blood pressure 62 mm[Hg] April Yates MD Work Phone: [facility] 08-11-2024 08:04-0400 Systolic blood pressure 110 mm[Hg] April Yates MD Work Phone: [facility] 07-28-2024 15:57-0400 Body mass index (BMI) [Ratio] 27 kg/m2 Beata Dahl MD Work Phone: [facility] 07-28-2024 15:57-0400 Body weight 77.11 kg Beata Dahl MD Work Phone: [facility] 07-28-2024 15:57-0400 Diastolic blood pressure 62 mm[Hg] Beata Dahl MD Work Phone: [facility] 07-28-2024 15:57-0400 Systolic blood pressure 120 mm[Hg] Beata Dahl MD Work Phone: [facility] 07-20-2024 14:36-0400 Body mass index (BMI) [Ratio] 27.32 kg/m2 Malia Romero APRN.CNM Work Phone: [facility] 07-20-2024 14:36-0400 Body weight 78.02 kg Malia Romero MAIL CARRIER.CNM Work Phone: [facility] 07-20-2024 14:36-0400 Diastolic blood pressure 60 mm[Hg] Malia Romero MAIL CARRIER.CNM Work Phone: [facility] 07-20-2024 14:36-0400 Systolic blood pressure 108 mm[Hg] Malia Romero MAIL CARRIER.CNM Work Phone: [facility] 07-06-2024 16:24-0400 Body mass index (BMI) [Ratio] 26.52 kg/m2 Taylor Plotts MAIL CARRIER.CNM Work Phone: [facility] 07-06-2024 16:24-0400 Body weight 75.75 kg Taylor Chiuts MAIL CARRIER.CNM Work Phone: [facility] 07-06-2024 16:24-0400 Diastolic blood pressure 68 mm[Hg] Taylor Plotts MAIL CARRIER.CNM Work Phone: [facility] 07-06-2024 16:24-0400 Systolic blood pressure 114 mm[Hg] Taylor Plotts MAIL CARRIER.CNM Work Phone: [facility] 06-22-2024 15:50-0400 Body mass index (BMI) [Ratio] 26.55 kg/m2 Mary Shin MD Work Phone: [facility] 06-22-2024 15:50-0400 Body weight 75.84 kg Mary Shin MD Work Phone: [facility] 06-22-2024 15:50-0400 Diastolic blood pressure 60 mm[Hg] Mary Shin MD Work Phone: [facility] 06-22-2024 15:50-0400 Systolic blood pressure 108 mm[Hg] Mary Shin MD Work Phone: [facility] 06-09-2024 11:05-0400 Body mass index (BMI) [Ratio] 25.73 kg/m2 Beata Dahl MD Work Phone: [facility] 06-09-2024 11:05-0400 Body weight 73.48 kg Beata Dahl MD Work Phone: [facility] 06-09-2024 11:05-0400 Diastolic blood pressure 60 mm[Hg] Beata Dahl MD Work Phone: [facility] 06-09-2024 11:05-0400 Systolic blood pressure 100 mm[Hg] Beata Dahl MD Work Phone: [facility] 05-27-2024 10:48-0400 Body mass index (BMI) [Ratio] 25.57 kg/m2 Malia Romero MAIL CARRIER.CNM Work Phone: [facility] 05-27-2024 10:48-0400 Body weight 73.03 kg Malia Romero MAIL CARRIER.CNM Work Phone: [facility] 05-27-2024 10:48-0400 Diastolic blood pressure 62 mm[Hg] Malia Romero MAIL CARRIER.CNM Work Phone: [facility] 05-27-2024 10:48-0400 Systolic blood pressure 114 mm[Hg] Malia Romero MAIL CARRIER.CNM Work Phone: [facility] 05-01-2024 15:49-0500 Body mass index (BMI) [Ratio] 25.03 kg/m2 Beata Dahl MD Work Phone: [facility] 05-01-2024 15:49-0500 Body weight 71.49 kg Beata Dahl MD Work Phone: [facility] 05-01-2024 15:49-0500 Diastolic blood pressure 60 mm[Hg] Beata Dahl MD Work Phone: [facility] 05-01-2024 15:49-0500 Systolic blood pressure 120 mm[Hg] Baeta Dahl MD Work Phone: [facility] 04-03-2024 09:13-0500 Body mass index (BMI) [Ratio] 24.65 kg/m2 Kevin Bradford MD Work Phone: [facility] 04-03-2024 09:13-0500 Body weight 70.4 kg Kevin Bradford MD Work Phone: [facility] 04-03-2024 09:13-0500 Diastolic blood pressure 70 mm[Hg] Kevin Bradford MD Work Phone: [facility] 04-03-2024 09:13-0500 Systolic blood pressure 116 mm[Hg] Kevin Bradford MD Work Phone: [facility] 03-10-2024 10:50-0500 Body mass index (BMI) [Ratio] 23.66 kg/m2 Mary Shin MD Work Phone: [facility] 03-10-2024 10:50-0500 Body weight 67.59 kg Mary Shin MD Work Phone: [facility] 03-10-2024 10:50-0500 Diastolic blood pressure 64 mm[Hg] Mary Shin MD Work Phone: [facility] 03-10-2024 10:50-0500 Systolic blood pressure 108 mm[Hg] Mary Shin MD Work Phone: [facility] 02-14-2024 09:10-0500 Body mass index (BMI) [Ratio] 23.51 kg/m2 Beata Dahl MD Work Phone: [facility] 02-14-2024 09:10-0500 Body weight 67.13 kg eBata Dahl MD Work Phone: [facility] 02-14-2024 09:10-0500 Diastolic blood pressure 60 mm[Hg] Beata Dahl MD Work Phone: [facility] 02-14-2024 09:10-0500 Systolic blood pressure 114 mm[Hg] Beata Dahl MD Work Phone: [facility] 01-21-2024 13:09-0500 Body height 169 cm Lorenzo Del Toro DO Work Phone: [facility] 01-21-2024 13:09-0500 Body mass index (BMI) [Ratio] 23.11 kg/m2 Lorenzo Del Toro DO Work Phone: [facility] 01-21-2024 13:09-0500 Body temperature 97.39 [degF] Lorenzo Del Toro DO Work Phone: [facility] 01-21-2024 13:09-0500 Body weight 66 kg Lorenzo Del Toro DO Work Phone: [facility] 01-21-2024 13:09-0500 Diastolic blood pressure 70 mm[Hg] Lorenzo Del Toro DO Work Phone: [facility] 01-21-2024 13:09-0500 Heart rate 88 /min Lorenzo Del Toro DO Work Phone: [facility] 01-21-2024 13:09-0500 Respiratory rate 12 /min Lorenzo Del Toro DO Work Phone: [facility] 01-21-2024 13:09-0500 Systolic blood pressure 110 mm[Hg] Lorenzo Del Toro DO Work Phone: [facility] 01-07-2024 08:37-0400 Body height 168.9 cm Malia Romero APRN.CNM Work Phone: [facility] 01-07-2024 08:37-0400 Body mass index (BMI) [Ratio] 23.47 kg/m2 Malia Romero APRN.CNM Work Phone: [facility] 01-07-2024 08:37-0400 Body weight 66.95 kg Malia Romero APRN.CNM Work Phone: [facility] 01-07-2024 08:37-0400 Diastolic blood pressure 60 mm[Hg] Malia Romero APRN.CNM Work Phone: [facility] 01-07-2024 08:37-0400 Systolic blood pressure 120 mm[Hg] Malia Romero APRN.CNM Work Phone: [facility] 01-14-2023 08:43-0400 Body height 168 cm Lorenzo Del Toro DO Work Phone: [facility] 01-14-2023 08:43-0400 Body temperature 97 [degF] Lorenzo Del Toro DO Work Phone: [facility] 01-14-2023 08:43-0400 Body weight 67.59 kg Lorenzo Del Toro DO Work Phone: [facility] 01-14-2023 08:43-0400 Diastolic blood pressure 68 mm[Hg] Lorenzo Del Toro DO Work Phone: [facility] 01-14-2023 08:43-0400 Heart rate 80 /min Lorenzo Del Toro DO Work Phone: [facility] 01-14-2023 08:43-0400 Respiratory rate 12 /min Lorenzo Del Toro DO Work Phone: [facility] 01-14-2023 08:43-0400 Systolic blood pressure 112 mm[Hg] Lorenzo Del Toro DO Work Phone: [facility] 12-31-2022 08:22-0400 Body height 169.5 cm Taylor Plotts MAIL CARRIER.CNM Work Phone: [facility] 12-31-2022 08:22-0400 Body weight 67.13 kg Taylor Plotts MAIL CARRIER.CNM Work Phone: [facility] 12-31-2022 08:22-0400 Diastolic blood pressure 74 mm[Hg] Taylor Plotts MAIL CARRIER.CNM Work Phone: [facility] 12-31-2022 08:22-0400 Systolic blood pressure 104 mm[Hg] Taylor Plotts MAIL CARRIER.CNM Work Phone: [facility] 01-09-2022 14:25-0400 Body height 169.5 cm Lorenzo Del Toro DO Work Phone: [facility] 01-09-2022 14:25-0400 Body temperature 96.4 [degF] Lorenzo Del Toro DO Work Phone: [facility] 01-09-2022 14:25-0400 Body weight 68.49 kg Lorenzo Del Toro DO Work Phone: [facility] 01-09-2022 14:25-0400 Diastolic blood pressure 60 mm[Hg] Lorenzo Del Toro DO Work Phone: [facility] 01-09-2022 14:25-0400 Heart rate 80 /min Lorenzo Valleon DO Work Phone: [facility] 01-09-2022 14:25-0400 Respiratory rate 16 /min Lorenzo Del Toro DO Work Phone: [facility] 01-09-2022 14:25-0400 Systolic blood pressure 90 mm[Hg] Lorenzo Del Toro DO Work Phone: [facility] 06-22-2021 18:46-0400 Diastolic blood pressure 67 mm[Hg] Dr. Lorenzo Del Toro Work Phone: [facility] Work Phone: 06-22-2021 18:46-0400 Heart rate 80 /min Dr. Lorenzo Del Toro Work Phone: [facility] Work Phone: 06-22-2021 18:46-0400 Respiratory rate 16 /min Dr. Lorenzo Del Toro Work Phone: [facility] Work Phone: 06-22-2021 18:46-0400 Systolic blood pressure 130 mm[Hg] Dr. Lorenzo Del Toro Work Phone: [facility] Work Phone: 06-22-2021 17:14-0400 Body height 170.[address] Lorenzo Del Toro Work Phone: [facility] Work Phone: 06-22-2021 17:14-0400 Body mass index (BMI) [Ratio] 24.1 kg/m2 Dr. Lorenzo Del Toro Work Phone: [facility] Work Phone: 06-22-2021 17:14-0400 Body temperature 96.4 [degF] Dr. Lorenzo Del Toro Work Phone: [facility] Work Phone: 06-22-2021 [id number] Body weight 69.[address] Lorenzo Del Toro Work Phone: [facility] Work Phone: 06-22-2021 17:14040 SaO2% (BldA) [Mass fraction] 98 % Dr. Lorenzo Del Toro Work Phone: [facility] Work Phone: Encounters Encounter Date Encounter Type Care Provider Facility Start: 08-19-2024 End: 08-19-2024 ambulatory APRIL YATES Facility:[facility] Start: 08-11-2024 End: 08-11-2024 Patient encounter procedure April Yates MD Work Phone: OB/Gynecology Comment on above: Encounter for superv ision of normal first in third trimester (HCC) (Primary Dx); 38 weeks gestation of ([facility]) Start: 08-11-2024 End: 08-11-2024 ambulatory APRIL YATES Facility:[facility] Start: 08-04-2024 End: 08-04-2024 ambulatory APRIL YATES Facility:[facility] Start: 07-28-2024 End: 07-28-2024 Patient encounter procedure Beata Dahl MD Work Phone: OB/Gynecology Comment on above: 36 weeks gestation o f (HCC) (Primary Dx); Encounter for supervision of normal first in third trimester ([facility]); Rh negative state in antepartum period ([facility]) Start: 07-28-2024 End: 07-28-2024 ambulatory BEATA DAHL Facility:[facility] Start: 07-20-2024 End: 07-20-2024 Patient encounter procedure Malia Romero APRN.CNM Work Phone: OB/Gynecology Comment on above: 35 weeks gestation o f (HCC) (Primary Dx); Encounter for supervision of normal first in third trimester (HCC) Start: 07-20-2024 End: 07-20-2024 ambulatory BEATA DAHL Facility:[facility] Start: 07-06-2024 End: 07-06-2024 Patient encounter procedure Taylor King APRN.CNM Work Phone: OB/Gynecology Comment on above: Encounter for superv ision of normal first in third trimester (HCC) (Primary Dx); 33 weeks gestation of (HCC) Start: 07-06-2024 End: 07-06-2024 ambulatory TAYLOR KING Facility:[facility] Start: 06-22-2024 End: 06-22-2024 ambulatory MARY SHIN Facility:[facility] Start: 06-22-2024 End: 06-22-2024 Patient encounter procedure Mary Shin MD Work Phone: OB/Gynecology Comment on above: Encounter for superv ision of normal first in second trimester (HCC) (Primary Dx); 31 weeks gestation of (HCC) Start: 06-09-2024 End: 06-09-2024 ambulatory BEATA DAHL Facility:[facility] Start: 06-09-2024 End: 06-09-2024 Patient encounter procedure [...] 05-27-2024 End: 05-27-2024 ambulatory LORENZO DEL TORO Facility:[facility] Start: 05-01-2024 End: 05-01-2024 ambulatory BEATA DAHL Facility:[facility] Start: 05-01-2024 End: 05-01-2024 Patient encounter procedure Beata Dahl MD Work Phone: OB/Gynecology Comment on above: 24 weeks gestation o f (Primary Dx); Screening for diabetes mellitus; Supervision of other normal , antepartum Start: 04-03-2024 End: 04-03-2024 ambulatory KEVIN SANCHEZ Facility:[facility] Start: 04-03-2024 End: 04-03-2024 Patient encounter procedure [employer] [facility] Comment on [...] Start: 02-14-2024 End: 02-14-2024 ambulatory BEATA DAHL Facility:[facility] Start: 02-14-2024 End: 02-14-2024 Patient encounter procedure [...] Jessa Mackenzie MD Work Phone: [facility] Comment on above: Results Start: 02-11-2024 End: 02-11-2024 ambulatory Lorenzo Del Toro Facility:[facility] Start: 01-21-2024 End: 01-21-2024 Patient encounter procedure Lorenzo Del Toro DO Work Phone: [facility] [place] Comment on above: Well adult exam (Sowmya chas Dx); 9 weeks gestation of Start: 01-21-2024 End: 01-21-2024 Patient encounter status Lorenzo Del Toro DO Work Phone: [facility] Work Phone: Start: 01-21-2024 End: 01-21-2024 ambulatory LORENZO Nelson DEL TORO Facility:[facility] Start: 01-21-2024 Encounter for genera l adult medical examination without abnormal findings LORENZO Nelson DEL TORO [facility] Start: 01-07-2024 End: 01-07-2024 ambulatory MALIA ROMERO Facility:[facility] Start: 01-07-2024 End: 01-07-2024 Patient encounter procedure Malia Romero APRN.CNM Work Phone: OB/Gynecology Comment on above: with uncer tain dates in first trimester (Primary Dx); Supervision of other normal , antepartum; Encounter for supervision of normal first in first trimester Start: 01-14-2023 End: 01-14-2023 Patient encounter procedure Lorenzo Del Toro DO Work Phone: [facility] [place] Comment on above: Well adult exam (Sowmya chas Dx) Start: 01-14-2023 End: 01-14-2023 Patient encounter status Lorenzo Del Toro DO Work Phone: [facility] Work Phone: Start: 12-31-2022 End: 12-31-2022 Patient encounter procedure Taylor King MAIL CARRIER.CNM Work Phone: OB/Gynecology Comment on above: Encounter for gyneco logical examination (general) (routine) without abnormal findings (Primary Dx) Start: 12-31-2022 End: 12-31-2022 Patient encounter status Taylor King MAIL CARRIER.CNM Work Phone: [facility] Work Phone: Start: 01-09-2022 End: 01-09-2022 Patient encounter procedure Lorenzo Del Toro DO Work Phone: [facility] Comment on above: Well adult exam (Sowmya chas Dx); Thyromegaly Start: 01-09-2022 End: 01-09-2022 Patient encounter status Lorenzo Del Toro DO Work Phone: [facility] Start: 06-22-2021 End: 06-22-2021 Emergency department patient visit Dr. [facility] Del [facility] Start: 03-14-2021 End: 03-14-[address] [facility] Start: 12-25-2017 End: 12-26-2017 Patient encounter JEANCARLOS WALDRON TRISTON [facility] Start: 12-16-2017 End: 01-07-2024 Patient encounter status Lorenzo Del Toro DO Work Phone: [facility] Work Phone: Start: 10-29-2017 End: 10-30-2017 Patient encounter JEANCARLOS GOLDSTEIN [facility] Procedures Date Procedure Procedure Detail Performing Clinician Start: 08-11-2024 Urnls dip stick/tabl et rgnt non-auto w/o micrscp April Yates MD Work Phone: Start: 07-28-2024 Urnls dip stick/tabl et rgnt non-auto w/o micrscp Beata Dahl MD Work Phone: Start: 05-27-2024 Antibody screen LORENZO DEL TORO Comment on above: Order Comment: Speci men Type: BLOOD SPECIMEN Ordering Facility: [facility] Address: [address] [place], [place] [id number] Performed By: #### T SPN #### [facility] CLIA [id number] [address] [place], [place] [address] [address] [place] Start: 04-03-2024 Us preg uterus after 1st trimest 1/ gestation Beata Dahl MD Work Phone: Start: 02-14-2024 Us nuchal translucency 1st gestation Beata Dahl MD Work Phone: Start: 01-07-2024 Us uterus l imited fetuses Malia Romero MAIL CARRIER.CNM Work Phone: Plan of Treatment Date Care Activity Detail Author Start: 08-18-2033 Urine microalbumin profile DTaP,Tdap,Td Vaccine (9 - Td or Tdap) [facility] Start: 08-09-2026 Urine microalbumin profile [facility] Start: 01-20-2025 Covid-19 Vaccine () Covid-19 Vaccine () [facility] Comment on above: Postponed from 11/16 (Declined at this time) Start: 12-29-2024 PAP TESTING PAP TESTING [facility] Start: 12-29-2024 Screening for malign ant neoplasm of cervix Cervical Cancer Screening [facility] Start: 08-19-2024 End: 08-19-2024 Patient encounter procedure 08/19/2024 8:10 AM EDT Routine Office Visit OB/Gynecology [address] [place] [id number] April Da Silva MD [address] [place] [id number] Ob OB/Gynecology Comment on above: Ob Start: 08-11-2024 End: 08-11-2024 Patient encounter procedure 08/11/2024 10:20 AM EDT Routine Office Visit OB/Gynecology [address] [place] [id number] Kevin Bradford MD [address] [place] [address] OB OB/Gynecology Comment on above: OB Start: 08-04-2024 End: 08-04-2024 Patient encounter procedure 08/04/2024 9:10 AM EDT Routine Office Visit OB/Gynecology [address] [place] [address] April Da Silva MD [address] [place] [address] Ob OB/Gynecology Comment on above: Ob Start: 07-28-2024 End: 07-28-2024 Patient encounter procedure 07/28/2024 4:00 PM EDT Routine Office Visit OB/Gynecology [address] [place] [address] Beata Dahl MD [address] [place] [address] (Fax) OB Routine OB/Gynecology Comment on above: OB Routine Start: 07-20-2024 End: 07-20-2024 Patient encounter procedure 07/20/2024 2:30 PM EDT Routine Office Visit OB/Gynecology [address] [place] [address] Beata Dahl MD [address] [place] [address] (Fax) OB Routine OB/Gynecology Comment on above: OB Routine Start: 07-06-2024 End: 07-06-2024 Patient encounter procedure 07/06/2024 4:30 PM EDT Routine Office Visit OB/Gynecology [address] [place] [address] Taylor King APRN.[facility] [address] [place] [address] OB Routine OB/Gynecology Comment on above: OB Routine Start: 06-22-2024 End: 06-22-2024 Patient encounter procedure 06/22/2024 3:50 PM EDT Routine Office Visit OB/Gynecology [address] [place] [address] Mary Shin MD [address] [place] [address] OB Routine OB/Gynecology Comment on above: OB Routine Start: 06-09-2024 End: 06-09-2024 Patient encounter procedure 06/09/2024 11:10 AM EDT Routine Office Visit OB/Gynecology [address] [place] [address] Beata Dahl MD [address] [place] [address] OB Routine OB/Gynecology Comment on above: OB Routine Start: 05-29-2024 End: 08-28-2024 ANEMIA REFLEX PANEL ANEMIA REFLEX PANEL Lab Routine 24 weeks gestation of Expected: 05/29/2024 (Approximate), Expires: 08/28/2024 [facility] Comment on above: Expected: 05/29/2024 (Approximate), Expires: 08/28/2024 Start: 05-29-2024 End: 05-01-2025 GESTATIONAL GLUCOSE SCREEN, 1-HOUR, 50 GRAM, NON-FASTING GESTATIONAL GLUCOSE SCREEN, 1-HOUR, 50 GRAM, NON-FASTING Lab Routine Screening for diabetes mellitus Expected: 05/29/2024 (Approximate), Expires: 05/01/2025 [facility] Work Phone: Comment on above: Expected: 05/29/2024 (Approximate), Expires: 05/01/2025 Start: 05-29-2024 End: 05-01-2025 SYPHILIS TREPONEMAL W/REFLEX SYPHILIS TREPONEMAL W/REFLEX Lab Routine 24 weeks gestation of Expected: 05/29/2024 (Approximate), Expires: 05/01/2025 [facility] Comment on above: Expected: 05/29/2024 (Approximate), Expires: 05/01/2025 Start: 05-29-2024 End: 08-28-2024 TYPE + SCREEN TYPE + SCREEN Blood Bank Routine Supervision of other normal , antepartum Expected: 05/29/2024 (Approximate), Expires: 08/28/2024 [facility] Comment on above: Expected: 05/29/2024 (Approximate), Expires: 08/28/2024 Start: 05-27-2024 End: 05-27-2024 Patient encounter procedure 05/27/2024 10:30 AM EDT Routine Office Visit OB/Gynecology [address] [place] [address] Malia [place] APRN.CN [address] [place] [address] OB OB/Gynecology Comment on above: OB Start: 05-27-2024 End: 05-27-2024 ambulatory 05/27/2024 10:15 AM EDT Results Only [place] [facility] [address] [place] [address] LAB [facility] Comment on above: LAB Start: 05-01-2024 End: 05-01-2024 Patient encounter procedure 05/01/2024 3:40 PM EST Routine Office Visit OB/Gynecology [address] [address] Beata Dahl MD [address] [place] [address] OB OB/Gynecology Comment on above: OB Start: 04-03-2024 End: 04-03-2024 Patient encounter procedure 04/03/2024 2:40 PM EST Routine Office Visit OB/Gynecology [address] [place] [address] Kevin Bradford MD [address] [place] [address] OB Routine OB/Gynecology Comment on above: OB Routine Start: 04-03-2024 End: 04-03-2024 Patient encounter procedure 04/03/2024 1:30 PM EST Routine Office Visit OB/Gynecology [address] [place] [address] [employer], [employer] [address] [place] [address] Anatomy Scan OB/Gynecology Comment on above: Anatomy Scan Start: 03-10-2024 End: 03-10-2024 Patient encounter procedure 03/10/2024 10:50 AM EST Routine Office Visit OB/Gynecology [address] [place] [address] Mary Shin MD [address] [place] [address] OB OB/Gynecology Comment on above: OB Start: 02-14-2024 End: 02-13-2025 NUCHAL TRANSLUCENCY WHI NUCHAL TRANSLUCENCY WHI Anc Imaging Routine Supervision of other normal , antepartum 13 weeks gestation of Expected: 02/14/2024, Expires: 02/13/2025 [facility] Work Phone: Comment on above: Expected: 02/14/2024 , Expires: 02/13/2025 Start: 02-14-2024 End: 02-13-2025 OBSTETRIC ULTRASOUND WHI OBSTETRIC ULTRASOUND WHI Anc Imaging Routine Encounter for anatomic survey Expected: 02/14/2024, Expires: 02/13/2025 [facility] Work Phone: Comment on above: Expected: 02/14/2024 , Expires: 02/13/2025 Start: 02-14-2024 End: 02-14-2024 Patient encounter procedure [facility]aternal [facility] Comment on above: Nuchal US OB routine Start: 01-21-2024 End: 04-21-2024 25-hydroxyvitamin D3 [Mass/volume] in Serum or Plasma VITAMIN D 25 HYDROXY Lab Routine Well adult exam Expected: 01/21/2024, Expires: 04/21/2024 [facility] Work Phone: Comment on above: Expected: 01/21/2024 , Expires: 04/21/2024 Start: 01-21-2024 End: 04-21-2024 Thyrotropin [Units/volume] in Serum or Plasma THYROID STIMULATING HORMONE Lab Routine Well adult exam Expected: 01/21/2024, Expires: 04/21/2024 [facility] Comment on above: Expected: 01/21/2024 , Expires: 04/21/2024 Start: 01-21-2024 End: 04-21-2024 Thyroxine (T4) free [Mass/volume] in Serum or Plasma T4 FREE/FREE THYROXINE Lab Routine Well adult exam Expected: 01/21/2024, Expires: 04/21/2024 [facility] Comment on above: Expected: 01/21/2024 , Expires: 04/21/2024 Start: 01-21-2024 End: 04-21-2024 Triiodothyronine (T3) Free [Mass/volume] in Serum or Plasma T3, FREE Lab Routine Well adult exam Expected: 01/21/2024, Expires: 04/21/2024 [facility] Comment on above: Expected: 01/21/2024 , Expires: 04/21/2024 Start: 01-21-2024 End: 01-21-2024 Patient encounter procedure 01/21/2024 1:00 PM EST Office Visit [facility] [address] [place] [address] Lorenzo Del Toro DO [address] [place] [address] Annual physical [facility] Comment on above: Annual physical Start: 01-15-2024 Covid-19 Vaccine ( season) Covid-19 Vaccine () [facility] Comment on above: Postponed from 11/16 (Declined at this time) Start: 01-07-2024 End: 04-07-2024 CBC panel - Blood by Automated count COMPLETE BLOOD COUNT Lab Routine with uncertain dates in first trimester Supervision of other normal , antepartum Expected: 01/07/2024, Expires: 04/07/2024 [facility] Work Phone: Comment on above: Expected: 01/07/2024 , Expires: 04/07/2024 Start: 01-07-2024 End: 04-07-2024 Hemoglobin A1c in Blood HEMOGLOBIN A1C Lab Routine with uncertain dates in first trimester Supervision of other normal , antepartum Expected: 01/07/2024, Expires: 04/07/2024 [facility] Comment on above: Expected: 01/07/2024 , Expires: 04/07/2024 Start: 01-07-2024 End: 04-07-2024 HEMOGLOBIN EVALUATION CASCADE HEMOGLOBIN EVALUATION CASCADE Lab Routine with uncertain dates in first trimester Supervision of other normal , antepartum Expected: 01/07/2024, Expires: 04/07/2024 [facility] Comment on above: Expected: 01/07/2024 , Expires: 04/07/2024 Start: 01-07-2024 End: 04-07-2024 Hepatitis B virus surface Ag [Presence] in Serum HEPATITIS B SURFACE ANTIGEN Lab Routine with uncertain dates in first trimester Supervision of other normal , antepartum Expected: 01/07/2024, Expires: 04/07/2024 [facility] Comment on above: Expected: 01/07/2024 , Expires: 04/07/2024 Start: 01-07-2024 End: 04-07-2024 Hepatitis C virus Ab [Presence] in Serum HEPATITIS C ANTIBODY IA WITH CONFIRMATION Lab Routine with uncertain dates in first trimester Supervision of other normal , antepartum Expected: 01/07/2024, Expires: 04/07/2024 [facility] Comment on above: Expected: 01/07/2024 , Expires: 04/07/2024 Start: 01-07-2024 End: 04-07-2024 HIV 1+2 Ab [Presence] in Serum or Plasma by Immunoassay HIV 1/2 COMBO WITH REFLEX TO DIFFERENTIATION Lab Routine with uncertain dates in first trimester Supervision of other normal , antepartum Expected: 01/07/2024, Expires: 04/07/2024 [facility] Comment on above: Expected: 01/07/2024 , Expires: 04/07/2024 Start: 01-07-2024 End: 04-07-2024 RUBELLA IGG ANTIBODY RUBELLA IGG ANTIBODY Lab Routine with uncertain dates in first trimester Supervision of other normal , antepartum Expected: 01/07/2024, Expires: 04/07/2024 [facility] Comment on above: Expected: 01/07/2024 , Expires: 04/07/2024 Start: 01-07-2024 End: 04-07-2024 SYPHILIS TREPONEMAL W/REFLEX SYPHILIS TREPONEMAL W/REFLEX Lab Routine with uncertain dates in first trimester Supervision of other normal , antepartum Expected: 01/07/2024, Expires: 04/07/2024 [facility] Comment on above: Expected: 01/07/2024 , Expires: 04/07/2024 Start: 01-07-2024 End: 04-07-2024 TYPE + SCREEN TYPE + SCREEN Blood Bank Routine with uncertain dates in first trimester Supervision of other normal , antepartum Expected: 01/07/2024, Expires: 04/07/2024 [facility] Comment on above: Expected: 01/07/2024 , Expires: 04/07/2024 Start: 11-17-2023 Covid-19 Vaccine () Covid-19 Vaccine () [facility] Start: 12-31-2022 End: 03-02-2023 Hepatitis B virus surface Ag [Presence] in Serum [facility] Work Phone: Comment on above: Expected: 12/31/2022 , Expires: 03/02/2023 Start: 12-31-2022 End: 03-02-2023 Hepatitis C virus Ab [Presence] in Serum [facility] Work Phone: Comment on above: Expected: 12/31/2022 , Expires: 03/02/2023 Start: 12-31-2022 End: 03-02-2023 HIV 1+2 Ab [Presence] in Serum or Plasma by Immunoassay [facility] Work Phone: Comment on above: Expected: 12/31/2022 , Expires: 03/02/2023 Start: 12-31-2022 End: 03-02-2023 SYPHILIS TOTAL W/REFLEX [facility] Work Phone: Comment on above: Expected: 12/31/2022 , Expires: 03/02/2023 Start: 11-16-2022 Covid-19 Vaccine () Covid-19 Vaccine () [facility] Start: 03-18-2022 Depression Assessment Depression Ass essment [facility] Start: 01-09-2022 End: 03-11-2022 THYROID PEROXIDASE ANTIBODY BLOOD THYROID PEROXIDASE ANTIBODY BLOOD Lab Routine Thyromegaly Expected: 01/09/2022, Expires: 03/11/2022 [facility] Work Phone: Comment on above: Expected: 01/09/2022 , Expires: 03/11/2022 Start: 01-09-2022 End: 03-11-2022 Thyrotropin [Units/volume] in Serum or Plasma TSH BLD Lab Routine Thyromegaly Expected: 01/09/2022, Expires: 03/11/2022 [facility] Work Phone: Comment on above: Expected: 01/09/2022 , Expires: 03/11/2022 Start: 01-09-2022 End: 03-11-2022 Thyroxine (T4) free [Mass/volume] in Serum or Plasma T4 FREE/FREE THYROX Lab Routine Thyromegaly Expected: 01/09/2022, Expires: 03/11/2022 [facility] Work Phone: Comment on above: Expected: 01/09/2022 , Expires: 03/11/2022 Start: 01-09-2022 End: 03-11-2022 Triiodothyronine (T3) Free [Mass/volume] in Serum or Plasma T3 FREE BLD Lab Routine Thyromegaly Expected: 01/09/2022, Expires: 03/11/2022 [facility] Work Phone: Comment on above: Expected: 01/09/2022 , Expires: 03/11/2022 Start: 09-01-2021 COVID-19 VACCINE (4 - Booster for Moderna series) COVID-19 VACCINE (4 - Booster for Moderna series) [facility] Start: 2013 Anxiety Screening Anxiety Screening [facility] Start: 2013 Depression Screening Depression Scre ening [facility] Start: 2013 HEPATITIS C SCREENING HEPATITIS C ROXANNE VENKATA [facility] Start: 2013 HIV SCREENING HIV SCREENING [facility] Bacteria identified in Urine by Culture URINE CULTURE Microbiology Routine with uncertain dates in first trimester Supervision of other normal , antepartum 01/07/2024 9:46 AM EDT [facility] Chlamydia trachomatis+Neisseria gonorrhoeae DNA [Presence] in Unspecified specimen by SRINIVAS with probe detection GONORRHEA/CHLAMYDIA NAAT Lab Routine with uncertain dates in first trimester Supervision of other normal , antepartum 01/07/2024 9:46 AM EDT [facility] Patient Education ED Gastroenter itis, Viral (Adult) [facility] Work Phone: Patient referral [facility] Work Phone: ROUTINE, GR OUP B STREPTOCOCCUS BY PCR ROUTINE, GROUP B STREPTOCOCCUS BY PCR Microbiology Routine 36 weeks gestation of (HCC) Encounter for supervision of normal first in third trimester ([facility]) 07/28/2024 4:19 PM EDT [facility] Work Phone: URINE OB DIP B/O URINE OB DIP B/ O Lab Routine 35 weeks gestation of ([facility]) Encounter for supervision of normal first in third trimester ([facility]) Ordered: 07/20/2024 [facility] Work Phone: Comment on above: Ordered: 07/20/2024 [facility] Immunizations Immunization Date Immunization Notes Care Provider Lucia pérez 05-27-2024 RHO(D) immune globul in- IV or IM Malia [place] APRN.CNM Work Phone: [facility] 12-13-2020 influenza, seasonal, injectable Dr. Lorenzo Del Toro Work Phone: [facility] Work Phone: 12-13-2020 influenza, seasonal, injectable, preservative free Lorenzo Del Toro DO Work Phone: [facility] 05-03-2020 Covid (Moderna) Dr. Lorenzo gibson Work Phone: [facility] Work Phone: 04-05-2020 Covid (Moderna) Dr. Lorenzo gibson Work Phone: [facility] Work Phone: 12-15-2019 influenza, seasonal, injectable Dr. Lorenzo Del Toro Work Phone: [facility] Work Phone: 12-17-2017 influenza virus vaccine, unspecified formulation Lorenzo Del Toro DO Work Phone: [facility] 11-17-2016 influenza, injectabl e, quadrivalent, contains preservative Lorenzo Del Toro DO Work Phone: [facility] 08-09-2016 tetanus toxoid, redu delmy diphtheria toxoid, and acellular pertussis vaccine, adsorbed Lorenzo Del Toro DO Work Phone: [facility] 2016 influenza, injectabl e, quadrivalent, contains preservative Lorenzo Del Toro DO Work Phone: [facility] Work Phone: 07-26-2015 tuberculin skin test ; purified protein derivative solution, intradermal Malia Romero APRN.CNM Work Phone: [facility] 12-25-2014 influenza, injectabl e, quadrivalent, contains preservative Lorenzo Del Toro DO Work Phone: [facility] Work Phone: 12-25-2013 influenza, injectabl e, quadrivalent, preservative free Lorenzo Del Toro DO Work Phone: [facility] 01-07-2013 influenza virus vaccine, live, attenuated, for intranasal use Lorenzo Del Toro DO Work Phone: [facility] Work Phone: 01-07-2013 Meningococcal, MCV4, unspecified conjugate formulation(groups A, C, Y and W-135) Lorenzo Del Toro DO Work Phone: [facility] Work Phone: 03-14-2012 influenza virus vaccine, live, attenuated, for intranasal use Lorenzo Del Toro DO Work Phone: [facility] Work Phone: 01-10-2010 influenza virus vaccine, live, attenuated, for intranasal use Lorenzo Del Toro DO Work Phone: [facility] Work Phone: 12-29-2008 influenza virus vaccine, live, attenuated, for intranasal use Lorenzo Del Toro DO Work Phone: [facility] Work Phone: 01-14-2008 human papilloma viru s vaccine, quadrivalent Lorenzo Del Toro DO Work Phone: [facility] Work Phone: 01-14-2008 influenza virus vaccine, live, attenuated, for intranasal use Lorenzo Del Toro DO Work Phone: [facility] Work Phone: 03-15-2007 human papilloma viru s vaccine, quadrivalent Lorenzo Del Toro DO Work Phone: [facility] Work Phone: 02-10-2007 influenza virus vaccine, unspecified formulation Lorenzo Del Toro DO Work Phone: [facility] Work Phone: 02-10-2007 tetanus toxoid, redu delmy diphtheria toxoid, and acellular pertussis vaccine, adsorbed Lorenzo Del Toro DO Work Phone: [facility] Work Phone: 01-28-2007 human papilloma viru s vaccine, quadrivalent Lorenzo Del Troo DO Work Phone: [facility] 01-11-2006 influenza virus vaccine, live, attenuated, for intranasal use Lorenzo Del Toro DO Work Phone: [facility] Work Phone: 01-11-2006 Meningococcal, MCV4, unspecified conjugate formulation(groups A, C, Y and W-135) Lorenzo Del Toro DO Work Phone: [facility] Work Phone: 04-19-2000 diphtheria, tetanus toxoids and acellular pertussis vaccine Lorenzo Del Toro DO Work Phone: [facility] Work Phone: 04-19-2000 measles, mumps and rubella virus vaccine Lorenzo Del Toro DO Work Phone: [facility] Work Phone: 04-19-2000 poliovirus vaccine, inactivated Lorenzo Del Toro DO Work Phone: [facility] Work Phone: 07-13-1996 haemophilus influenz ae type b vaccine, HbOC conjugate Lorenzo Del Toro DO Work Phone: [facility] Work Phone: 05-15-1996 diphtheria, tetanus toxoids and acellular pertussis vaccine Lorenzo Del Toro DO Work Phone: [facility] Work Phone: 01-14-1996 measles, mumps and rubella virus vaccine Lorenzo Del Toro DO Work Phone: [facility] Work Phone: 1995 diphtheria, tetanus toxoids and pertussis vaccine Lorenzo Del Toro DO Work Phone: [facility] Work Phone: 1995 haemophilus influenz ae type b vaccine, HbOC conjugate Lorenzo Del Toro DO Work Phone: [facility] Work Phone: 1995 hepatitis B vaccine, pediatric or pediatric/adolescent dosage Lorenzo Del Toro DO Work Phone: [facility] Work Phone: 1995 trivalent poliovirus vaccine, live, oral Lorenzo Del Toro DO Work Phone: [facility] Work Phone: 1995 diphtheria, tetanus toxoids and pertussis vaccine Lorenzo Del Toro DO Work Phone: [facility] Work Phone: 1995 haemophilus influenz ae type b vaccine, HbOC conjugate Lorenzo Del Toro DO Work Phone: [facility] Work Phone: 1995 trivalent poliovirus vaccine, live, oral Lorenzo Del Toro DO Work Phone: [facility] Work Phone: 1995 diphtheria, tetanus toxoids and pertussis vaccine Lorenzo Del Toro DO Work Phone: [facility] Work Phone: 1995 haemophilus influenz ae type b vaccine, HbOC conjugate Lorenzo Del Toro DO Work Phone: [facility] Work Phone: 1995 hepatitis B vaccine, pediatric or pediatric/adolescent dosage Lorenzo Del Toro DO Work Phone: [facility] Work Phone: 1995 trivalent poliovirus vaccine, live, oral Lorenzo Del Toro DO Work Phone: [facility] Work Phone: 1995 hepatitis B vaccine, pediatric or pediatric/adolescent dosage Lorenzo Del Toro DO Work Phone: [facility] Work Phone: Payers Date Payer Category Payer Self-pay [id number] 2022 Private Health Insurance [id number] 2022 Unknown [id number] 2021 Unknown MMO MMO TPA [id number] 2021-Present [address] [place] [address] PPO [id number] Unknown [facility] [id number] Unknown [facility] [id number] Unknown [id number] Social History Date Type Detail Facility [facility] Work Phone: Start: 06-22-2021 Tobacco smoking status NHIS Unknown if ever smoked [facility] Work Phone: Start: 1995 Sex Assigned At Female [facility] Start: 12-29-2021 Tobacco smoking status NHIS Never smoked tobacco [facility] Start: 12-29-2021 Tobacco use and exposure Smokeless tobacco non-user [facility] Start: 01-09-2022 End: 07-28-2024 Alcohol intake Current drinker of alcohol (finding) [facility] Start: 01-09-2022 History SDOH Alcohol Frequency 2 [facility] Start: 01-09-2022 History SDOH Alcohol Std Drinks 1 [facility] Start: 01-09-2022 History SDOH Social Connections Phone 5 [facility] Start: 01-09-2022 History SDOH Social Connections Bahai 3 [facility] Start: 01-09-2022 History SDOH Social Connections Living 7 [facility] Start: 01-09-2022 History SDOH Physical Activity DPW 0 [facility] Start: 12-19-2020 Education 17 [facility] Start: 12-19-2020 Alcohol Comment socially/rare [facility] Start: 12-30-2021 End: 01-09-2022 Exposure to SARS-CoV-2 (event) Not sure [facility] Work Phone: Start: 01-08-2022 End: 01-07-2024 History of Social function [facility] Start: 01-08-2022 End: 01-07-2024 Social connection and isolation panel [facility] Do you belong to any clubs or organizations such as baptism groups, unions, fraternal or athletic groups, or school groups? No [facility] Are you now , , , , never or living with a partner? Never [facility] How often to you hav e a drink containing alcohol? Monthly or less [facility] How many standard dr inks containing alcohol do you have on a typical day? 1 or 2 [facility] How often do you hav e 6 or more drinks on 1 occasion? Less than monthly [facility] How hard is it for y ou to pay for the very basics like food, housing, medical care, and heating Not hard at all [facility] Do you feel stress - tense, restless, nervous, or anxious, or unable to sleep at night because your mind is troubled all the time - these days [OSQ] Only a little [facility] (I/We) worried wheth er (my/our) food would run out before (I/we) got money to buy more. Never true [facility] Start: 01-28-2019 Gender identity Identifies as female gender (finding) [facility] Start: 01-28-2019 Sexual orientation Heterosexual (finding) [facility] How often do you hav e 6 or more drinks on 1 occasion? Never [facility] Start: 11-29-2023 [facility] Do you belong to any clubs or organizations such as baptism groups, Doppelgamess, fraInventbuy or athletic groups, or school groups? Yes [facility] Are you now , , , , never or living with a partner? [facility] Do you feel stress - tense, restless, nervous, or anxious, or unable to sleep at night because your mind is troubled all the time - these days [OSQ] Not at all [facility] Goals Date Patient Goal Desired Activity /State Personal health goal Clinical Notes 01-09-2022 to 08-11-2024 Quick Notes - April Da Silva MD - 08/11/2024 8:14 AM EDTPrenatal Quick Notes - April Da Silva MD - 08/11/2024 8:14 AM EDTPatient InstructionsPatient [...] was discussed with the patient or authorized medical customer service representative. The patient or authorized medical customer service representative has agreed to proceed with the sensitive examination. @ 38.4 weeks Assessment & Plan Encounter for supervision of normal first in third trimester (HCC) Orders: URINE OB DIP B/O 38 weeks gestation of (HCC) Kick counts and labor reviewed RTO weekly Orders: URINE OB DIP B/O April Romo MD [facility] Work Phone: 08-11-2024 Miscellaneous Notes DM-Pt doing well. Denies vaginal Bleeding, Leaking fluid, or regular Contractions. Pt reports good movement Physical Exam: Gen: female in no apparent distress Abd: soft, Gravid. Non tender to palpation. See flow sheet Participation of a fellow, resident, medical student, or advanced practice provider student in performing the sensitive examination was discussed with the patient or authorized medical customer service representative. The patient or authorized medical customer service representative has agreed to proceed with the sensitive examination. @ 38.4 weeks Assessment & Plan Encounter for supervision of normal first in third trimester (HCC) Orders: URINE OB DIP B/O 38 weeks gestation of ([facility]) Kick counts and labor reviewed RTO weekly Orders: URINE OB DIP B/O April Romo MD documented in this encounter [facility] 08-11-2024 Instructions Anusha Domínguez MA - 08/11/2024 7:59 AM EDT SEQUENTIAL SCREENINGS The [facility] offers sequential screenings for women who are [...] It will require an appointment with our sterile instrument technician. This is not an ultrasound performed [...] the above symptoms, contact our office at [phone] and ask to speak with a nurse. After hours, you can call doctors registry at [phone] OR call [facility] at [phone] and ask to have the doctor construction controller paged. If you consider this an emergency, dial 8--0 or go to your nearest emergency department. NEED HELP? Are you dealing with a violent or abusive relationship? Are you a victim of rape or sexual assult? Call [facility] ([place]) 24 hour Crisis Hotline: 203.582.8355 or 683-921-6206. MANUAL Your Guide to a Healthy manual is now on-line. Visit [email or web address] ncyGuide to download your free copy documented in this encounter [facility] 08-11-2024 Note HNO ID: [id number] Author: KIM RUIZ, ? Service: ? Author Type: Patient Visual Basic Programmer Type: Progress Notes Filed: 08/11/2024 07:56 Note Text: POPULATION HEALTH NAVIGATION OUTREACH Action/FYI Responded via my chart added commission agent livestock Reason for Outreach Medicaid OB/Peds Care Gaps due: N/A Patient Contacted: Spoke to patient/parent/or legal guardian Patient identified by name and : Yes Medicaid OB/Peds actions taken: /Ophthalmic Photographer added Navigation Signature: Kim Ruiz Population Health Navigator August 11, 2024 7:56 AM [facility] 08-07-2024 Note HNO ID: [id number] Author: KIM RUIZ, ? Service: ? Author Type: Patient Visual Basic Programmer Type: Progress Notes Filed: 08/07/2024 08:42 Note Text: POPULATION HEALTH NAVIGATION OUTREACH Action/FYI Left message to add commission agent livestock to OB provider field, verify/est pcp My chart sent Reason for Outreach Medicaid OB/Peds Care Gaps due: N/A Patient Contacted: Unable or unnecessary to reach patient: Unable to reach patient Left message MyChart message sent Navigation Signature: Kim Ruiz Population Health Navigator August 07, 2024 8:41 AM [facility] 08-07-2024 Note Patient Outreach (NE TNAV) LYNETTE BARRIENTOS ([id number]) 1995 F Date Time Provider Department 08/07/24 KIM RUIZ During your visit today, we recorded the following information about you: Kim Ruiz 08/07/2024 8:42 AM Signed POPULATION HEALTH NAVIGATION OUTREACH Action/FYI Left message to add commission agent livestock to OB provider field, verify/est pcp My chart sent Reason for Outreach Medicaid OB/Peds Care Gaps due: N/A Patient Contacted: Unable or unnecessary to reach patient: Unable to reach patient Left message [employer] Plantã[employer] message sent Navigation Signature: Kim Ruiz Population Health Navigator August 07, 2024 8:41 AM Kim Ruiz 08/11/2024 7:56 AM Signed POPULATION HEALTH NAVIGATION OUTREACH Action/FYI Responded via my chart added commission agent livestock Reason for Outreach Medicaid OB/Peds Care Gaps due: N/A Patient Contacted: Spoke to patient/parent/or legal guardian Patient identified by name and : Yes Medicaid OB/Peds actions taken: [place]/Ophthalmic Photographer added Navigation Signature: iKm Ruiz Population Health Navigator August 11, 2024 [...] Encounter Status:Closed by KIM RUIZ on 08/07/24 [facility] 07-28-2024 Progress note Formatting of t his [...] 3. Rh negative state in antepartum period ([facility]) - ICD9: 646.83, ICD10: O26.899, Z67.91 - URINE OB DIP B/O Beata Dahl MD [facility] 07-28-2024 Miscellaneous Notes S: Lynette Barrientos is [...] US ASSESSMENT/PLAN: 1. 36 weeks gestation of ([facility]) - ICD9: V22.2, ICD10: Z3A.36 (primary diagnosis) - URINE OB DIP B/O - ROUTINE, GROUP B STREPTOCOCCUS BY PCR 2. Encounter for supervision of normal first in third trimester ([facility]) - ICD9: V22.0, ICD10: Z34.03 - URINE OB DIP B/O - ROUTINE, GROUP B STREPTOCOCCUS BY PCR 3. Rh negative state in antepartum period ([facility]) - ICD9: 646.83, ICD10: O26.899, Z67.91 - URINE OB DIP B/O Beata Dahl MD documented in this encounter [facility] 07-28-2024 Instructions Avelina Sauceda MA - 07/28/2024 3:52 PM EDT SEQUENTIAL SCREENINGS The [facility] offers sequential screenings for women who are [...] It will require an appointment with our sterile instrument technician. This is not an ultrasound performed [...] the above symptoms, contact our office at [phone] and ask to speak with a nurse. After hours, you can call doctors registry at [phone] OR call [facility] at [phone] and ask to have the doctor construction controller paged. If you consider this an emergency, dial 9-1-7 or go to your nearest emergency department. NEED HELP? Are you dealing with a violent or abusive relationship? Are you a victim of rape or sexual assult? Call [facility] ([place]) 24 hour Crisis Hotline: 544.487.1265 or 928-956-9115. MANUAL Your Guide to a Healthy manual is now on-line. Visit [email or web address] ncyGuide to download your free copy documented in this encounter [facility] 07-21-2024 Progress note Formatting of t his [...] RTO in one week Malia Romero APRN.CNM [facility] 07-21-2024 Miscellaneous Notes AIDA-S: Lynette Barrientos is [...] Malia Romero APRN.CNM documented in this encounter [facility] 07-20-2024 Instructions Malia Romero APRN.CNM - 07/20/2024 [...] or burning! Figure 1 1 Perineal Massage Flesch?Bellflower Grade Level: 7.2 Approved March 2015. This [...] make an easy pie crust in the food and beverage coordinator. Add soaked dates to homemade nut butter for a sweet treat. Add dates to néstor homemade salad dressing. Add dates during easily with these yummy (paleo friendly) bars made from dates. What Is Red Raspberry [place] Tea? Red raspberry leaf tea comes from [...] , and too. How Much Red Raspberry [place] Tea to Drink? With your doctor or tile designer s approval, start with 1 cup of [...] because of uterine cramping. Is Red Raspberry [place] Tea the Same as Raspberry [place] Tea? How About Plain Old Raspberry Tea? Sometimes. You really need to look at the ingredients to be sure. Note that there is no difference between red raspberry leaf and raspberry leaf. [employer] or [employer] Raspberry [place] Tea are two good brands. The red [...] outlined in this article. The [employer] www.BevyUp I named this 'circuit' after my friend [...] sideways, 2 at a time, (have a field artillery operations man downstairs of you!), take a walk outside [...] the pelvis. Prerna Ray: Circuit Creator - www.Trumba Corporationundbirthcollective.Radiant Zemax Kathy Issa CD, BDT (GEOFFREY), LCCE, FACCE: Supporting Content - www.kathyVisionarityemilABT Molecular Imaging Sophie Lam: Photography - www.HackerRanksheebaemazeaverbrowEruvaka Technologies Yadi Ferrera CD/CDT (LAURENT): Print and Rn Stars - www.CounterTack Circuit Masterminds [employer] Circuit www.BevyUp SIGNS AND SYMPTOMS OF LABOR 1. Contractions every 10 minutes or more often 2. Clear, pink, or brownish fluid (water) leaking from vagina 3. Feeling that baby is pushing down, pressure 4. Low, dull backache 5. Cramps that feel like a period 6. Cramps with or without diarrhea If you notice any of the above symptoms, contact our office at [phone] and ask to speak with a nurse. After hours, you can call doctors registry at [phone] OR call [facility] at [phone] and ask to have the doctor construction controller paged. If you consider this an emergency, dial 9-1-1 or go to your nearest emergency department. NEED HELP? Are you dealing with a violent or abusive relationship? Are you a victim of rape or sexual assult? Call [facility] ([place]) 24 hour Crisis Hotline: 429.607.9270 or 153-419-4184. MANUAL Your Guide to a Healthy manual is now on-line. Visit [email or web address]/[email or web address] ncyGuide to download your free copy documented in this encounter [facility] 07-06-2024 Progress note Formatting of t his [...] - RTO 2 weeks Taylor King APRN.CNM [facility] Work Phone: 07-06-2024 Miscellaneous Notes S: Lynette [...] Taylor King APRN.CNM documented in this encounter [facility] 07-06-2024 Ke Fang MA - 07/06/2024 4:26 PM EDT SEQUENTIAL SCREENINGS The [facility] offers sequential screenings for women who are [...] It will require an appointment with our sterile instrument technician. This is not an ultrasound performed [...] the above symptoms, contact our office at [phone] and ask to speak with a nurse. After hours, you can call doctors registry at [phone] OR call [facility] at [phone] and ask to have the doctor construction controller paged. If you consider this an emergency, dial 9-1-4 or go to your nearest emergency department. NEED HELP? Are you dealing with a violent or abusive relationship? Are you a victim of rape or sexual assult? Call [facility] 24 hour Crisis Hotline: 621.373.2224 or 091-418-3768. MANUAL Your Guide to a Healthy manual is now on-line. Visit [email or web address]/HealthyPregna ncyGuide to download your free copy documented in this encounter [facility] 06-22-2024 Progress note Formatting of t his note might be different from the original. SW- No pain, vb, lof. Good FM PE: Gen- NAD, well appearing Abd- Soft, gravid, NT, S=D See flowsheet A/p 31 wk gestation - Reviewed upcoming expectations - RTO 2 wks Mary Shin DO [facility] 06-22-2024 Miscellaneous Notes SW- No pain, vb, lof. Good FM PE: Gen- NAD, well appearing Abd- Soft, gravid, NT, S=D See flowsheet A/p 31 wk gestation - Reviewed upcoming expectations - RTO 2 wks Mary Shin DO documented in this encounter [facility] 06-22-2024 Instructions Lencho, RamonaMARGARET - 06/22/2024 3:48 PM EDT SEQUENTIAL SCREENINGS The [facility] offers sequential screenings for women who are [...] It will require an appointment with our sterile instrument technician. This is not an ultrasound performed [...] the above symptoms, contact our office at [phone] and ask to speak with a nurse. After hours, you can call doctors registry at [phone] OR call [facility] at [phone] and ask to have the doctor construction controller paged. If you consider this an emergency, dial 11-16- or go to your nearest emergency department. NEED HELP? Are you dealing with a violent or abusive relationship? Are you a victim of rape or sexual assult? Call [facility] ([place]) 24 hour Crisis Hotline: 320.855.4686 or 501-586-2340. MANUAL Your Guide to a Healthy manual is now on-line. Visit [email or web address]/HealthyPregna ncyGuide to download your free copy documented in this encounter [facility] 06-09-2024 Progress note Formatting of t his [...] ICD9: V22.2, ICD10: Z3A.29 Beata Dahl MD [facility] 06-09-2024 Miscellaneous Notes S: Lynette Barrientos is [...] Beata Dahl MD documented in this encounter [facility] 06-09-2024 Instructions Avelina Sauceda MA - 06/09/2024 11:05 AM EDT SEQUENTIAL SCREENINGS The [facility] offers sequential screenings for women who are [...] It will require an appointment with our sterile instrument technician. This is not an ultrasound performed [...] the above symptoms, contact our office at [phone] and ask to speak with a nurse. After hours, you can call doctors registry at [phone] OR call [facility] at [phone] and ask to have the doctor construction controller paged. If you consider this an emergency, dial 9-1-5 or go to your nearest emergency department. NEED HELP? Are you dealing with a violent or abusive relationship? Are you a victim of rape or sexual assult? Call [facility] ([facility] 24 hour Crisis Hotline: 921.159.9538 or 488-057-7524. MANUAL Your Guide to a Healthy manual is now on-line. Visit [email or web address]/HealthyPregna ncyGuide to download your free copy documented in this encounter [facility] 05-27-2024 Note HNO ID: [id number] Author: BEATA BAGLEY RN Service: ? Author [...] her Rhophylac pocket card. Beata Bagley RN [facility] 05-27-2024 History of Present illness Narrative Lynette Barrientos 29 year old is here for her injection of Rhophylac. Lynette Vergaraach is A Negative Rhophylac was given without incident. See immunizations for details of immunizations administered today. Provider Malia Romero CNM was present in office at time of injection Lynette Barrientos was given her Rhophylac pocket card. Beata Bagley RN documented in this encounter [facility] 05-27-2024 Progress note Formatting of t his [...] RTO in 2 weeks Malia Romero APRN.CNM [facility] 05-27-2024 Miscellaneous Notes AIDA-S: Lynette Barrientos is [...] Malia Romero APRN.CNM documented in this encounter [facility] 05-27-2024 Ke Fang MA - 05/27/2024 10:36 AM EDT SEQUENTIAL SCREENINGS The [facility] offers sequential screenings for women who are [...] It will require an appointment with our sterile instrument technician. This is not an ultrasound performed [...] the above symptoms, contact our office at [phone] and ask to speak with a nurse. After hours, you can call doctors registry at [phone] OR call [facility] at [phone] and ask to have the doctor construction controller paged. If you consider this an emergency, dial 9--4 or go to your nearest emergency department. NEED HELP? Are you dealing with a violent or abusive relationship? Are you a victim of rape or sexual assult? Call [facility] ([place]) 24 hour Crisis Hotline: 131.388.1108 or 581-544-6276. MANUAL Your Guide to a Healthy manual is now on-line. Visit [email or web address]/[email or web address] ncyGuide to download your free copy documented in this encounter [facility] 05-01-2024 Progress note Formatting of t his [...] - TYPE + SCREEN Beata Dahl MD [facility] 05-01-2024 Miscellaneous Notes S: Lynette Barrientos is [...] Beata Dahl MD documented in this encounter [facility] 05-01-2024 Instructions Ramona Musa MA - 05/01/2024 3:47 PM EST SEQUENTIAL SCREENINGS The [facility] offers sequential screenings for women who are [...] It will require an appointment with our sterile instrument technician. This is not an ultrasound performed [...] the above symptoms, contact our office at [phone] and ask to speak with a nurse. After hours, you can call doctors registry at [phone] OR call [facility] at [phone] and ask to have the doctor construction controller paged. If you consider this an emergency, dial 9-- or go to your nearest emergency department. NEED HELP? Are you dealing with a violent or abusive relationship? Are you a victim of rape or sexual assult? Call [facility] ([place]) 24 hour Crisis Hotline: 284.866.5615 or 296-627-0989. MANUAL Your Guide to a Healthy manual is now on-line. Visit [email or web address]/HealthyPregna ncyGuide to download your free copy documented in this encounter [facility] 04-03-2024 Progress note Formatting of t his note might be different from the original. KJ - VB No. LOF No. CTXS No. Movement: present. Other c/o: No. Medication list reviewed. Physical Exam See Flow Sheet Gen: no accute distress, well appearing A/P 20w0d Estimated Date of Delivery: 08/21/24 Anatomy US today Kevin Bradford MD [facility] 04-03-2024 Miscellaneous Notes KJ - VB No. LOF No. CTXS No. Movement: present. Other c/o: No. Medication list reviewed. Physical Exam See Flow Sheet Gen: no accute distress, well appearing A/P 20w0d Estimated Date of Delivery: 08/21/24 Anatomy US today Kevin Bradford MD documented in this encounter [facility] 04-03-2024 Instructions Ramona Musa MA - 04/03/2024 8:32 AM EST SEQUENTIAL SCREENINGS The [facility] offers sequential screenings for women who are [...] It will require an appointment with our sterile instrument technician. This is not an ultrasound performed [...] the above symptoms, contact our office at [phone] and ask to speak with a nurse. After hours, you can call doctors registry at [phone] OR call [facility] at [phone] and ask to have the doctor construction controller paged. If you consider this an emergency, dial 9-1-1 or go to your nearest emergency department. NEED HELP? Are you dealing with a violent or abusive relationship? Are you a victim of rape or sexual assult? Call [facility] 24 hour Crisis Hotline: 261.742.3979 or 430-872-6589. MANUAL Your Guide to a Healthy manual is now on-line. Visit [email or web address]/HealthyPregna ncyGuide to download your free copy documented in this encounter [facility] 03-13-2024 Telephone encounter Note Nausea associated with .Requesting Zofran [facility] 03-13-2024 Miscellaneous Notes Nausea associated with .Requesting Zofran documented in this encounter [facility] 03-12-2024 Telephone encounter Note Called Pt and appointments rescheduled. Yandel Santiago RN [facility] 03-12-2024 Miscellaneous Notes Called Pt and appointments rescheduled. Yandel Santiago RN documented in this encounter [facility] 03-10-2024 Progress note Formatting of t his note might be different from the original. SW- Pt doing well. No pain, vb, lof. NOB labs completed. Schedule anatomy US. RTO 4 wks. Mary Shin DO [facility] Work Phone: 03-10-2024 Miscellaneous Notes SW- Pt doing well. No pain, vb, lof. NOB labs completed. Schedule anatomy US. RTO 4 wks. Mary Shin DO documented in this encounter [facility] 03-10-2024 Instructions Ramona Musa MA - 03/10/2024 10:48 AM EST SEQUENTIAL SCREENINGS The [facility] offers sequential screenings for women who are [...] It will require an appointment with our sterile instrument technician. This is not an ultrasound performed [...] the above symptoms, contact our office at [phone] and ask to speak with a nurse. After hours, you can call doctors registry at [phone] OR call [facility] at [phone] and ask to have the doctor construction controller paged. If you consider this an emergency, dial 9--3 or go to your nearest emergency department. NEED HELP? Are you dealing with a violent or abusive relationship? Are you a victim of rape or sexual assult? Call [facility] ([place] 24 hour Crisis Hotline: 604.394.3048 or 594-717-0833. MANUAL Your Guide to a Healthy manual is now on-line. Visit [email or web address]/HealthyPregna ncyGuide to download your free copy SEQUENTIAL SCREENINGS The [facility] offers sequential screenings for women who are [...] It will require an appointment with our sterile instrument technician. This is not an ultrasound performed [...] the above symptoms, contact our office at [phone] and ask to speak with a nurse. After hours, you can call doctors registry at [phone] OR call [facility] at [phone] and ask to have the doctor construction controller paged. If you consider this an emergency, dial 9--2 or go to your nearest emergency department. NEED HELP? Are you dealing with a violent or abusive relationship? Are you a victim of rape or sexual assult? Call [facility] ([place] 24 hour Crisis Hotline: 743.182.9716 or 785-236-8090. MANUAL Your Guide to a Healthy manual is now on-line. Visit [email or web address]/HealthyPregna ncyGuide to download your free copy documented in this encounter [facility] 02-17-2024 Telephone encounter Note Copy of episode sent to L&D including external lab results attached below. Yandel Santiago RN [facility] 02-17-2024 Miscellaneous Notes Copy of episode sent to L&D including external lab results attached below. Yandel Santiago RN HIV negative. Please update record. Malia Romero APRN.CNM View External Labs - Chemistry [ID [id number]] Spoke with [facility] lab. This will take several days with the holiday. It should be sent out to [facility] today. Beata Bagley RN Can you please get confirmation screen from lab or see when will be expected. Thank you, Malia Romero APRN.CNM Results scanned to patient chart. Will forward message to traveling repair accountant provider, per PCP request. Payton Paris LPN Please obtain these lab results and forward to OBGYN Lorenzo Del Toro DO Paged to [facility] about critical value. Preliminary HIV + and will be getting conformation Forwarding to PCP to address documented in this encounter [facility] 02-17-2024 Telephone encounter Note HIV negative. Please update record. Malia Romero APRN.CNM [facility] 02-17-2024 Telephone encounter Note View External Labs - Chemistry [ID [id number]] [facility] 02-14-2024 Progress note Formatting of t his [...] ICD9: V22.0, ICD10: Z34.02 Beata Dahl MD [facility] 02-14-2024 Miscellaneous Notes S: Lynette Barrientos is [...] Beata Dahl MD documented in this encounter [facility] 02-14-2024 Maki Joyner LPN - 02/14/2024 8:55 AM EST SEQUENTIAL SCREENINGS The [facility] offers sequential screenings for women who are [...] It will require an appointment with our sterile instrument technician. This is not an ultrasound performed [...] the above symptoms, contact our office at [phone] and ask to speak with a nurse. After hours, you can call doctors registry at [phone] OR call [facility] at [phone] and ask to have the doctor construction controller paged. If you consider this an emergency, dial 11-16-4 or go to your nearest emergency department. NEED HELP? Are you dealing with a violent or abusive relationship? Are you a victim of rape or sexual assult? Call [facility] ([place]) 24 hour Crisis Hotline: 278.548.8958 or 517-070-5250. MANUAL Your Guide to a Healthy manual is now on-line. Visit [email or web address]/HealthyPregna ncyGuide to download your free copy documented in this encounter [facility] 02-14-2024 Telephone encounter Note Please file NT u/s order for today's appt. Adelina Freeman RN [facility] 02-14-2024 Miscellaneous Notes Please file NT u/s order for today's appt. Adelina Freeman RN documented in this encounter [facility] 02-12-2024 Telephone encounter Note Spoke with [facility] lab. This will take several days with the holiday. It should be sent out to [facility] today. Beata Bagley RN [facility] 02-12-2024 Telephone encounter Note Can you please get confirmation screen from lab or see when will be expected. Thank you, Malia Romero APRN.CNM [facility] 02-12-2024 Telephone encounter Note Results scanned to patient chart. Will forward message to traveling repair accountant provider, per PCP request. Payton Paris LPN [facility] 02-12-2024 Telephone encounter Note Please obtain these lab results and forward to OBGYN Lorenzo Del Toro DO [facility] 02-11-2024 Telephone encounter Note Paged to [facility] about critical value. Preliminary HIV + and will be getting conformation Forwarding to PCP to address [facility] Work Phone: 01-21-2024 Note HNO ID: [id number] Author: LORENZO DEL TORO DO Service: ? [...] the plan. Lorenzo Del Toro DO [address] [place] [address] [facility] 01-21-2024 History of Present illness Narrative CC: [...] the plan. Lorenzo Del Toro DO [address] [place] [address] documented in this encounter [facility] 01-07-2024 Progress note Formatting of t his note might be different from the original. -NOB visit. See progress note. LMP=US. Uncertain about NIPT and carrier screening. May have labs done at [facility] and will need Johanna order. NT US ordered. ASA at 12 wk. Malia Romero APRN.CNM [facility] 01-07-2024 Miscellaneous Notes -NOB visit. See progress note. LMP=US. Uncertain about NIPT and carrier screening. May have labs done at [facility] and will need Johanna order. NT US ordered. ASA at 12 wk. Malia Romero APRN.CNM documented in this encounter [facility] 01-07-2024 Note HNO ID: [id number] Author: MALIA ROMERO APRN.CNM Service: ? Author Type: Algebraist Type: Progress Notes Filed: 01/07/2024 10:02 Note Text: INITIAL OB ASSESSMENT Dimensional Engineer offered: Patient declines. HPI: Lynette is a [...] stool, Vomiting MUSCULOSK (more content not included)... [facility] 01-07-2024 History of Present illness Narrative INITIAL OB ASSESSMENT Dimensional Engineer offered: Patient declines. HPI: Lynette is a [...] Status: Partner: Name: Jeffrey Age: 26 Occupation: [employer] Gender: Male PAST MEDICAL HISTORY Diagnosis Date [...] discussed with the Patient or Patient's Authorized Equipment Records Supervisor. As applicable, any other physician, advance practice provider, medical student, or other health professional student that will be observing or involved in the sensitive examination for educational or training purposes was discussed with the Patient or Authorized Equipment Records Supervisor. The Patient or Authorized Equipment Records Supervisor has agreed to proceed with the sensitive [...] Marielos Rico MA documented in this encounter [facility] 01-07-2024 Instructions Malia Romero APRN.CNM - 01/07/2024 8:32 AM EDT Please select the following link to access the [facility] Your Guide to a Healthy . [email or web address] [...] acid. It is a common prescription and gsin-dkp-nihzfdk medication similar to other non-steroidal inflammatory drugs [...] MotherToBaby fact sheet Paternal Exposures at [email or web address] [email or web address] . documented in this encounter [facility] 01-07-2024 Note HNO ID: [id number] Author: MARIELOS RICO MA Service: ? Author Type: Data Reduction Technician Type: Progress Notes Filed: 01/07/2024 10:01 Note Text: OB point of care ultrasound was performed. See imaging tab for details. Marielos Rico MA [facility] 01-14-2023 History of Present illness Narrative CC: Lynette Hernandez is a 28 year old female who presents to the office for physical HPI: Overall she is doing well. 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 Discussed risks, benefits, alternatives, and potential side effects of medications. Patient expressed understanding and agreed with the plan. 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 PAST MEDICAL HISTORY [...] diet of 1000 mg/day for under 50, 4284-7895 mg/day for 50+ 2. Thyromegaly - ICD9: [...] the plan. Lorenzo Del Toro DO [address] [place] [address] documented in this encounter [facility] Chief complaint+Reason for v isit Narrative [facility] Work Phone: Evaluation noteNo assessment information available [facility] Work Phone: Evaluation note* Diagnosis Well adult exam- Primary Routine general medical examination at a health care facility Thyromegaly Goiter, unspecified [facility] Diagnosis Encounter for gynecological examination (general) (routine) without abnormal findings- Primary [facility]* Diagnosis Well adult exam- Primary Routine general medical examination at a health care facility [facility]* Diagnosis with uncertain dates in first trimester- Primary Supervision of other normal , antepartum Encounter for supervision of normal first in first trimester Supervision of normal first [facility]* Diagnosis Well adult exam- Primary Routine general medical examination at a health care facility 9 weeks gestation of state, incidental [facility]* Diagnosis Supervision of other normal , antepartum- Primary 13 weeks gestation of state, incidental [facility]* Diagnosis 13 weeks gestation of - Primary state, incidental Encounter for supervision of normal first in second trimester Supervision of normal first Encounter for anatomic survey [facility]* Diagnosis screening for malformation using ultrasonics- Primary Encounter for routine screening for malformation using ultrasonics 13 weeks gestation of state, incidental Nuchal translucency of fetus on ultrasound Abnormal findings on screening [facility]* Diagnosis False positive HIV serology- Primary Other specified conditions influencing health status [facility]* Diagnosis Nausea and vomiting in - Primary Unspecified vomiting of , unspecified as to episode of care [facility]* Diagnosis 16 weeks gestation of - Primary state, incidental Supervision of other normal , antepartum [facility] Diagnosis Encounter for anatomic survey- Primary 20 weeks gestation of state, incidental [facility]* Diagnosis 20 weeks gestation of - Primary state, incidental Supervision of other normal , antepartum with uncertain dates in first trimester [facility]* Diagnosis 24 weeks gestation of - Primary state, incidental Screening for diabetes mellitus Supervision of other normal , antepartum [facility]* Diagnosis Encounter for supervision of normal first in second trimester- Primary Supervision of normal first 27 weeks gestation of state, incidental Rh negative state in antepartum period Rhesus isoimmunization affecting management of mother, antepartum condition [facility]* Diagnosis Encounter for supervision of normal first in second trimester- Primary Supervision of normal first Rh negative state in antepartum period Rhesus isoimmunization affecting management of mother, antepartum condition 29 weeks gestation of state, incidental [facility]* Diagnosis Encounter for supervision of normal first in second trimester (HCC)- Primary Supervision of normal first 31 weeks gestation of (HCC) state, incidental [facility]* Diagnosis Encounter for supervision of normal first in third trimester (HCC)- Primary Supervision of normal first 33 weeks gestation of (HCC) state, incidental [facility]* Diagnosis 35 weeks gestation of (HCC)- Primary state, incidental Encounter for supervision of normal first in third trimester (HCC) Supervision of normal first [facility]* Diagnosis 36 weeks gestation of (HCC)- Primary state, incidental Encounter for supervision of normal first in third trimester (HCC) Supervision of normal first Rh negative state in antepartum period ([facility]) Rhesus isoimmunization affecting management of mother, antepartum condition [facility] Diagnosis Encounter for supervision of normal first in third trimester ([facility])- Primary Supervision of normal first 38 weeks gestation of ([facility]) state, incidental documented in this encounter [facility] for referral (narrative)* Diagnostic Procedure Only (Routine) - New Request Specialty Diagnoses / Procedures Referred By Delores navarro Referred To Contact [facility] Diagnoses Supervision of other normal , antepartum 13 weeks gestation of Procedures NUCHAL TRANSLUCENCY WHI US NUCHAL TRANSLUCENCY 1ST GESTATION Beata Dahl MD [address] [place] [address] [facility] [address] [place] [id number] Referral ID Status Reason Start Date Expiration Date Visits Requested Visits Authorized [id number] New Request Auto-Generat ed Referral 4 02/13/2025 1 1 [facility] for referral (narrative)* Diagnostic Procedure Only (Routine) - New Request Specialty Diagnoses / Procedures Referred By Delores navarro Referred To Contact [facility] Diagnoses Encounter for anatomic survey Procedures OBSTETRIC ULTRASOUND WHI US PREG UTERUS AFTER 1ST TRIMEST 1 GESTATION Beata Dahl MD [address] [place] [address] [facility] [place] [address] Referral ID Status Reason Start Date Expiration Date Visits Requested Visits Authorized [id number] New Request Auto-Generat ed Referral 4 02/13/2025 1 1 [facility] Summary Purpose Family History No Family History Records FoundNo Family History Records FoundNo Family History Records FoundNo Family History Records Found Advance Directives No Advanced Directives Records Found Advance Directive Response Recorded Date/ Time Living Will No June 22, 2021 5:21pm Power of Cell Tender No June 22 5:21pm Additional Source Comments INFORMATION SOURCE (unrecogn ized section and content) DATE CREATED AUTHOR 01/20/2018 [facility] DATE CREATED AUTHOR AUTHOR'S ORGANIZ ATION 01/22/2018 Lizbeth Sandhu He [facility] DATE CREATED AUTHOR AUTHOR'S ORGANIZ ATION 04/08/2024 [facility] DATE CREATED AUTHOR AUTHOR'S ORGANIZ ATION 08/20/2024 [facility] Goals (unrecognized section and content) Goals may be documented in a n alternate section Source Comments (unrecognize d section and content) In the event this informatio n is protected by the Federal Confidentiality of Alcohol and Drug Abuse Patient Records regulations: The Federal rules restrict any use of the information to criminally investigate or prosecute any alcohol or drug abuse patient.[facility] the event this information is protected by the Federal Confidentiality of Alcohol and Drug Abuse Patient Records regulations: The Federal rules restrict any use of the information to criminally investigate or prosecute any alcohol or drug abuse patient.[facility] Hospital[facility] the event this information is protected by the Federal Confidentiality of Alcohol and Drug Abuse Patient Records regulations: The Federal rules restrict any use of the information to criminally investigate or prosecute any alcohol or drug abuse patient.[facility] Hospital[facility] the event this information is protected by the Federal Confidentiality of Alcohol and Drug Abuse Patient Records regulations: The Federal rules restrict any use of the information to criminally investigate or prosecute any alcohol or drug abuse patient.[facility] HospitalIn the event this information is protected by the Federal Confidentiality of Alcohol and Drug Abuse Patient Records regulations: The Federal rules restrict any use of the information to criminally investigate or prosecute any alcohol or drug abuse patient.[facility] HospitalIn the event this information is protected by the Federal Confidentiality of Alcohol and Drug Abuse Patient Records regulations: The Federal rules restrict any use of the information to criminally investigate or prosecute any alcohol or drug abuse patient.[facility] HospitalIn the event this information is protected by the Federal Confidentiality of Alcohol and Drug Abuse Patient Records regulations: The Federal rules restrict any use of the information to criminally investigate or prosecute any alcohol or drug abuse patient.[facility] HospitalIn the event this information is protected by the Federal Confidentiality of Alcohol and Drug Abuse Patient Records regulations: The Federal rules restrict any use of the information to criminally investigate or prosecute any alcohol or drug abuse patient.[facility] HospitalIn the event this information is protected by the Federal Confidentiality of Alcohol and Drug Abuse Patient Records regulations: The Federal rules restrict any use of the information to criminally investigate or prosecute any alcohol or drug abuse patient.[facility] HospitalIn the event this information is protected by the Federal Confidentiality of Alcohol and Drug Abuse Patient Records regulations: The Federal rules restrict any use of the information to criminally investigate or prosecute any alcohol or drug abuse patient.[facility] HospitalIn the event this information is protected by the Federal Confidentiality of Alcohol and Drug Abuse Patient Records regulations: The Federal rules restrict any use of the information to criminally investigate or prosecute any alcohol or drug abuse patient.[facility] HospitalIn the event this information is protected by the Federal Confidentiality of Alcohol and Drug Abuse Patient Records regulations: The Federal rules restrict any use of the information to criminally investigate or prosecute any alcohol or drug abuse patient.[facility] HospitalIn the event this information is protected by the Federal Confidentiality of Alcohol and Drug Abuse Patient Records regulations: The Federal rules restrict any use of the information to criminally investigate or prosecute any alcohol or drug abuse patient.[facility] HospitalIn the event this information is protected by the Federal Confidentiality of Alcohol and Drug Abuse Patient Records regulations: The Federal rules restrict any use of the information to criminally investigate or prosecute any alcohol or drug abuse patient.[facility] HospitalIn the event this information is protected by the Federal Confidentiality of Alcohol and Drug Abuse Patient Records regulations: The Federal rules restrict any use of the information to criminally investigate or prosecute any alcohol or drug abuse patient.[facility] HospitalIn the event this information is protected by the Federal Confidentiality of Alcohol and Drug Abuse Patient Records regulations: The Federal rules restrict any use of the information to criminally investigate or prosecute any alcohol or drug abuse patient.[facility] HospitalIn the event this information is protected by the Federal Confidentiality of Alcohol and Drug Abuse Patient Records regulations: The Federal rules restrict any use of the information to criminally investigate or prosecute any alcohol or drug abuse patient.[facility] HospitalIn the event this information is protected by the Federal Confidentiality of Alcohol and Drug Abuse Patient Records regulations: The Federal rules restrict any use of the information to criminally investigate or prosecute any alcohol or drug abuse patient.[facility] HospitalIn the event this information is protected by the Federal Confidentiality of Alcohol and Drug Abuse Patient Records regulations: The Federal rules restrict any use of the information to criminally investigate or prosecute any alcohol or drug abuse patient.[facility] HospitalIn the event this information is protected by the Federal Confidentiality of Alcohol and Drug Abuse Patient Records regulations: The Federal rules restrict any use of the information to criminally investigate or prosecute any alcohol or drug abuse patient.[facility] HospitalIn the event this information is protected by the Federal Confidentiality of Alcohol and Drug Abuse Patient Records regulations: The Federal rules restrict any use of the information to criminally investigate or prosecute any alcohol or drug abuse patient.[facility] HospitalIn the event this information is protected by the Federal Confidentiality of Alcohol and Drug Abuse Patient Records regulations: The Federal rules restrict any use of the information to criminally investigate or prosecute any alcohol or drug abuse patient.[facility] HospitalIn the event this information is protected by the Federal Confidentiality of Alcohol and Drug Abuse Patient Records regulations: The Federal rules restrict any use of the information to criminally investigate or prosecute any alcohol or drug abuse patient.[facility] Reason for Visit (unrecogniz ed section and content) Reason Comments Yearly Exam Specialty Diagnoses / Procedures Referred By Contac t Referred To Contact Family Medicine / FAMILY MEDICINE Diagnoses Yearly physical Procedures OFFICE/OUTPATIENT NEW HIGH MDM 60-74 MINUTES OFFICE/OUTPATIENT ESTABLISHED HIGH MDM 40-54 MIN MYC PHYSICAL Lorenzo Del Toro, DO [address] [place] [address] Lorenzo Del Toro, DO [address] [place] [address] Referral ID Status Reason Start Date Expiration Date V isits Requested Visits Authorized [id number] Closed Patient Cleared - INN Insurance Found 01/14/2023 03/17/2023 1 1 Reason Comments Well Woman Specialty Diagnoses / Procedures Referred By Contac t Referred To Contact EARLY HEAD START DIRECTOR Diagnoses Annual exam and lab work Procedures [facility] ANNUAL PATIENT Lorenzo Del Toro, DO [address] [place] [address] Taylor King APRN.[facility] [address] [place] [address] Referral ID Status Reason Start Date Expiration Date Visits Requested Visits Authorized [id number] Authorized Patient Cleared - INN Insurance Found 12/14/2022 03/14/2023 99 99 Reason Comments Initial OB Visit Reason Comments Orders Reason Onset Date Comments Care 02/14/2024 Reason Comments US Specialty Diagnoses / Procedures Referred By Contac t Referred To Contact [facility] Diagnoses Supervision of other normal , antepartum 13 weeks gestation of Encounter for supervision of normal , unspecified, unspecified trimester Procedures NUCHAL TRANSLUCENCY WHI US NUCHAL TRANSLUCENCY 1ST GESTATION US NUCHAL TRANSLUCENCY EA ADDL GESTATION Beata Dahl MD [address] [place] [address] [facility] [address] [place] [address] Referral ID Status Reason Start Date Expiration Date Visits Requested Visits Authorized [id number] Authorized Auto-Generate d Referral Clearance Not Met -Financial Clearance Bypassed 03/17/2024 99 99 Reason Comments Results Reason Onset Date Comments Care 03/10/2024 Specialty Diagnoses / Procedures Referred By Delores navarro Referred To Contact [facility] Diagnoses Encounter for anatomic survey Procedures OBSTETRIC ULTRASOUND WHI US PREG UTERUS AFTER 1ST TRIMEST GESTATION Beata Dahl MD [address] [place] [address] [address] Referral ID Status Reason Start Date Expiration Date V isits Requested Visits Authorized [id number] Closed Auto-Generate d Referral 02/14/2024 02/13/2025 1 [...] Care Teams (unrecognized sec tion and content) Ladder Operator Relationship Specialty Start Date End Date Lorenzo Del Toro DO [address] [place] [address] PCP - General Family Medicine 12/16/17 Ladder Operator Relationship Specialty Start Date End Date Lorenzo Del Toro DO [address] [place] [address] PCP - General Family Medicine 12/16/17 Ladder Operator Relationship Specialty Start Date End Date Lorenzo Del Toro DO [address] [facility] [place] [address] PCP - General Family Medicine 12/16/17 Ladder Operator Relationship Specialty Start Date End Date Lorenzo Del Toro DO [address] [facility] [place] [address] PCP - General Family Medicine 12/16/17 Ladder Operator Relationship Specialty Start Date End Date Lorenzo Del Toro DO [address] [facility] [place] [address] PCP - General Family Medicine 12/16/17 Ladder Operator Relationship Specialty Start Date End Date Lorenzo Del Toro DO [address] [facility] [place] [address] PCP - General Family Medicine 12/16/17 Ladder Operator Relationship Specialty Start Date End Date Lorenzo Del Toro DO [address] [facility] [place] [address] PCP - General Family Medicine 12/16/17 Ladder Operator Relationship Specialty Start Date End Date Lorenzo Del Toro DO [address] [facility] [place] [address] PCP - General Family Medicine 12/16/17 Ladder Operator Relationship Specialty Start Date End Date Lorenzo Del Toro DO [address] [facility] [place] [address] PCP - General Family Medicine 12/16/17 Ladder Operator Relationship Specialty Start Date End Date Lorenzo Del Toro DO [address] [place] [address] PCP - General Family Medicine 12/16/17 Kaitlynn Kwong, MAIL CARRIER.LABORER DRYING DEPARTMENT [address] [place] [address] [facility] Family Medicine 02/23/24 Jocelyne Escobedo, MAIL CARRIER.LABORER DRYING DEPARTMENT [address] [facility] [place] [address] [facility] 02/23/24 Ladder Operator Relationship Specialty Start Date End Date Lorenzo Del Toro DO [address] [facility] [place] [address] PCP - General Family Medicine 12/16/17 Kaitlynn Kwong, MAIL CARRIER.LABORER DRYING DEPARTMENT [address] [facility] [place] [address] [facility] Family Medicine 02/23/24 Jocelyne Escobedo, MAIL CARRIER.LABORER DRYING DEPARTMENT [address] [facility] [place] [address] [employer] Home Dem[employer]ator Family [facility] 02/23/24 Ladder Operator Relationship Specialty Start Date End Date Lorenzo Del Toro DO [address] [facility] [place] [address] PCP - General Family Medicine 12/16/17 Kaitlynn Kwong, MAIL CARRIER.LABORER DRYING DEPARTMENT [address] [facility] [place] [address] [facility] Family Medicine 02/23/24 Jocelyne Escobedo, MAIL CARRIER.LABORER DRYING DEPARTMENT [address] [facility] [place] [address] [facility] Ladder Operator Relationship Specialty Start Date End Date Lorenzo Del Toro DO [address] [place] [address] PCP - General Family Medicine 12/16/17 Kaitlynn Kwong, MAIL CARRIER.LABORER DRYING DEPARTMENT [address] [place] [address] [facility] 02/[facility]/24 FannyJocelyne, MAIL CARRIER.LABORER DRYING DEPARTMENT [address] [place] [address] [facility] 02/23/24 Ladder Operator Relationship Specialty Start Date End Date Lorenzo Del Toro DO [address] [place] [address] PCP - General Family Medicine 12/16/17 Kaitlynn Kwong, MAIL CARRIER.LABORER DRYING DEPARTMENT [address] [place] [address] [facility] 02/23/24 FannyJocelyne, MAIL CARRIER.LABORER DRYING DEPARTMENT [address] [place] [address] [facility] 02/23/24 Ladder Operator Relationship Specialty Start Date End Date Lorenzo Del Toro DO [address] [place] [address] PCP - General Family Medicine 12/16/17 Kaitlynn Kwong, MAIL CARRIER.LABORER DRYING DEPARTMENT [address] [place] [address] [facility] 02/23/24 [facility], MAIL CARRIER.LABORER DRYING DEPARTMENT [address] [place] [address] [facility] 02/23/24 Ladder Operator Relationship Specialty Start Date End Date Lorenzo Del Toro DO [address] [place] [address] PCP - General Family Medicine 12/16/17 [facility] MAIL CARRIER.LABORER DRYING DEPARTMENT [address] [place] [address] [facility] 02/23/24 Ladder Operator Relationship Specialty Start Date End Date oLrenzo Del Toro DO [address] [place] [address] PCP - General Family Medicine 12/16/17 [facility], MAIL CARRIER.LABORER DRYING DEPARTMENT [address] [place] [address] [facility] 02/23/24 Ladder Operator Relationship Specialty Start Date End Date Lorenzo Del Toro DO [address] [place] [address] PCP - General Family Medicine 12/16/17 [facility], MAIL CARRIER.LABORER DRYING DEPARTMENT [address] [place] [address] [facility] 02/23/24 Ladder Operator Relationship Specialty Start Date End Date Lorenzo Del Toro DO [address] [place] [address] PCP - General Family Medicine 12/16/17 Kaitlynn Kwong APRN.LABORER DRYING DEPARTMENT [address] [place], [place] [address] [facility] 02/23/24 06/05/24 Jocelyne Escobedo APRN.LABORER DRYING DEPARTMENT [address] [place], [place] [address] [facility] 02/23/24 Ladder Operator Relationship Specialty Start Date End Date Lorenzo Del Toro DO [address] [place], [place] [address] PCP - [facility] 12/16/17 Jocelyne Escobedo APRN.LABORER DRYING DEPARTMENT [address] [place], [place] [address] [facility] 02/23/24 FOR RECORDS PERTAINING TO PATIENTS WHO [...] BE BASED ON THE PRIMARY CLINICAL RECORDS. [facility] [employer] [facility]. provides no warranty or guarantee of the accuracy or completeness of information in this document.
[2024-08-21] VITALS (42 sets, daily range): BP systolic 93–131; BP diastolic 44–80; PULSE 68–110; RESP 16–18; TEMP 36.2–37.2; O2SAT 97–100
[2024-08-21] MEDS: Ondansetron 4 MG/2 ML Vial IV (00:13)
[2024-08-21] MEDS: 0.9% Saline Lock 10 ML Syringe IV (00:13)
[2024-08-21] MEDS: LACTATED RINGERS 500 ML 999 ML IV (00:41)
[2024-08-21] MEDS: Oxytocin 15 Units/NS 250ml 15 UNITS/250 ML IV.SOLN 83 UNITS IV (03:24)
--- NOTE | 2024-08-21 03:38 | OB.VAGDELI_ITS ---
Assessment & Plan (1) (spontaneous vaginal delivery): Maternal Data Information Final KILEY: 08/21/24 Gestational age: 40 Vaginal Delivery Maternal Presentation Maternal Presentation: Active Labor Type of Induction: Amniotomy Vaginal Delivery Information Procedure Performed: Spontaneous Vaginal Delivery Surgeon/Practitioner: Beata Dahl Date of Procedure: 08/21/24 Pre-Procedure Diagnosis: Term Post-Procedure Diagnosis: Type of anesthesia: Epidural Estimated Blood Loss: 100 cc Time of Delivery: 02:51 Findings Description of procedure: Admitted in early labor. AROM for thick mec. Pitocin augmentation. Once complete pushed for 50 minutes over an intact perineum. The head delivered TORI followed quickly by the anterior and posterior shoulders. The infant was placed on the maternal abdomen and cried vigorously. The cord was clamped and cut after one minute. The placenta delivered with gentle traction. There was a 2nd degree laceration repaired with 2-0 Vicryl. All sponge, needle and instrument counts were correct. Presentation: Vertex and TORI Amniotic Membrane Rupture Type: Artificial Amniotic Fluid Description: Thick meconium Placental Delivery Description: Spontaneous Placenta Disposition: [facility] Specimen collected: Yes Description of specimen(s) removed: cord blood Cord Vessel Description: 3 Vessels Cord Entanglement: None A Gender: Male (1 minute): 8 (5 minute): 9 Delayed Cord Clamping: Yes Soda Flaker music library assistant: No Post Vaginal Deli Medications given after delivery: IV Pitocin Episiotomy Description: None Laceration: Midline and 2nd degree Complication Complications: No
[2024-08-21] MEDS: Acetaminophen 500 MG Tablet 1000 MG PO ×3 (04:34→19:09)
--- NOTE | 2024-08-21 05:21 | NURSING ---
report given to nils ANGELO. that RN to assume care of couplet at this time.
[2024-08-21] MEDS: Benzocaine/Lanolin/Aloe Vera 85 GM Spray 1 SPRAY TOPICAL (08:06)
[2024-08-21] MEDS: Ibuprofen 600 MG Tablet PO ×3 (08:06→20:09)
[2024-08-21] MEDS: Senna/Docusate Sodium 1 Tablet PO (21:34)
[2024-08-22 00:46] VITALS: BP 126/63; PULSE 81; RESP 16; TEMP 36.3; O2SAT 98
[2024-08-22] MEDS: Acetaminophen 500 MG Tablet 1000 MG PO ×4 (00:50→20:11)
[2024-08-22] MEDS: Ibuprofen 600 MG Tablet PO ×4 (03:10→23:28)
[2024-08-22 04:08] VITALS: BP 123/59; PULSE 65; RESP 16; TEMP 36.4
[2024-08-22 08:00] VITALS: BP 122/72; PULSE 62; RESP 14; TEMP 36.2; O2SAT 97
[2024-08-22 12:43] VITALS: BP 117/66; PULSE 64; RESP 16; TEMP 36.3; O2SAT 99
[2024-08-22 16:08] VITALS: BP 119/71; PULSE 62; RESP 18; TEMP 36.4; O2SAT 98
[2024-08-22] MEDS: Senna/Docusate Sodium 1 Tablet PO (20:08)
[2024-08-22 20:40] VITALS: BP 119/82; PULSE 65; RESP 16; TEMP 36.5; O2SAT 100
[2024-08-23 01:35] VITALS: BP 113/59; PULSE 66; RESP 16; TEMP 36.5; O2SAT 98
[2024-08-23] MEDS: Acetaminophen 500 MG Tablet 1000 MG PO (03:24)
[2024-08-23] MEDS: Ibuprofen 600 MG Tablet PO (06:55)
--- NOTE | 2024-08-23 07:21 | DS.PCM_ITS ---
Providers Date of Admission: 08/20/24 Primary Care Physician: Dr. Lorenzo Del Toro, Reason For Visit: VAG Diagnosis Discharge Diagnosis (1) (spontaneous vaginal delivery): Status: Acute Code(s): O80 - Encounter for full-term uncomplicated delivery (2) Perineal laceration, second degree, delivered: Status: Acute Code(s): O70.1 - Second degree perineal laceration during delivery (3) Care and examination of lactating mother: Status: Acute Code(s): Z39.1 - Encounter for care and examination of lactating mother Medications at Discharge Home Medications cholecalciferol (vitamin D3) 25 mcg (1,000 unit) capsule 25 mcg PO DAILY 08/20/24 vitamin#30 30 mg iron-10 mg iron-folic acid 1 mg-omg3 capsule 1 cap PO DAILY 08/20/24 acetaminophen 500 mg tablet 1,000 mg (2 x 500 mg) PO Q6H PRN PRN Pain 1-10 Or Fever #0 tabs 08/22/24 benzocaine 20 %-menthol 0.5 % topical aerosol (Dermoplast (with menthol)) 1 spray topical TID PRN PRN perineal discomfort #0 grams 08/22/24 ibuprofen 600 mg tablet 600 mg PO Q6H PRN PRN Pain Score 1-10 #0 tabs 08/22/24 Hospital Course Operations None Procedures None Summary of Care Provided Minutes Spent on Discharge: 15 Hospital Course: Patient had vaginal delivery. Hospital course was uneventful. Physical Exam Narrative Patient seen at bedside. Denies pain. Ambulating and voiding without difficulty. Lochia decreased. Desires discharge home today. Const alert and oriented x3 General Appearance: Negative for in distress HEENT normocephalic Eyes General Eye: normal appearance of both eyes Neck General: normal visual inspection Chest Chest: symmetrical chest wall rise Resp normal respiratory effort and normal air movement Effort and Inspection: symmetric chest movement; Negative for tachypneic Auscultation: clear to auscultation bilaterally Cardio regular rate and regular rhythm Peripheral Pulses: pulses 2+ throughout GI normal to inspection, nondistended, normoactive bowel sounds Narrative: Ice to perineum OB / External & Speculum: vaginal bleeding and other Lochia decreasing Uterus Palpation: uterus fundus firm (Below U) Extremity normal to inspection, full ROM and normal capillary refill Skin no rashes or lesions noted Neuro oriented x3, CN's II-XII intact bilaterally and gait normal Psych mental status grossly normal, thought process normal and activity/motor behavior normal Weight / BMI Weight Weight: 183 lb 6 oz Body Mass Index (BMI) 29.1 ABG / Lab / Microbiology Data 08/20/24 11:25 D/C Instructions Discharge Diet: No restrictions Discharge Activity: Return to Normal Activity, No Restrictions, May Drive, May Shower and May Take a Tub Bath (Warm water only. No bath salts, soaps, bubbles) May resume sexual activity in: 6-8 weeks Weight Bearing Status: Weight bearing as tolerated Call your doctor if you observe: Fever of 101 or Higher, Inability to urinate, Using more than 1 pad per hour, Shortness of breath, Dizziness, Chest pain, Calf discomfort and Uncontrolled pain DC O2, CPAP, BIPAP Needs Home O2 Discharge instructions: No Please Follow Up With: [facility] [place] LY When: 2 weeks in office or virtual Meaningful Use Info Meaningful Use Meaningful Use Diagnoses (Choose all that apply): None applicable Ischemic Stroke Statin Dosing Therapy Reference: STATIN DOSE THERAPY REFERENCE: * Patients > 75 years receive moderate or high dose statin therapy. * Patients 75 years or YOUNGER should receive HIGH intensity statin dose unless contraindicated. You will be required to document reason for non-treatment if statin daily dose does not meet guidelines. HIGH DOSE STATIN THERAPY DAILY Atorvastatin > than or = to 40 mg Rosuvastatin > than or = to 20 mg Amlodipine + Atorvastatin > than or = to 2.5/40 mg Ezetimibe + Simvastatin 10/80 mg Simvastatin 80mg Discharge Plan Admission Admit Date/Time: 08/20/24 11:10 Primary Reason for Your Visit: Labor and Delivery Attending Provider: Beata Dahl Primary Care Provider: Lorenzo Del Toro Discharge Orders/Prescriptions Prescriptions: New Dermoplast (with menthol) 20-0.5 % Aerosol 1 spray topical TID PRN PRN (Reason: perineal discomfort) Qty: 0 0RF Protocol: *Topical Application Instructions APPLICATION INSTRUCTIONS: 1 spray 3 times a day as needed for perineal discomfort ibuprofen 600 mg Tablet 600 mg PO Q6H PRN PRN (Reason: Pain Score 1-10) Qty: 0 0RF acetaminophen 500 mg Tablet 1,000 mg PO Q6H PRN PRN (Reason: Pain 1-10 Or Fever) Qty: 0 0RF Continued PNV #[id number] 30 mg iron-10 mg iron-1 mg capsule 1 cap PO DAILY cholecalciferol (vitamin D3) 25 mcg (1,000 unit) capsule 25 mcg PO DAILY Discontinued ondansetron [ondansetron] 4 MG tablet 4 mg PO Q8H PRN PRN (Reason: Nausea) Qty: 10 0RF dicyclomine 10 MG capsule 20 mg PO TIDAC Qty: 20 0RF aspirin 81 mg capsule 81 mg PO DAILY Referrals / Follow Up: Taylor King CNM [Med Staff - Adv Practice Prof] - Lorenzo Del Toro DO [Primary Care Provider] - Disposition Disposition (needs filled in before D/C Order can be placed): Home, Self Care
[2024-08-23 08:15] VITALS: BP 121/73; PULSE 57; RESP 16; TEMP 36.1; O2SAT 100
[2024-08-24 05:57] VITALS: RESP 16; TEMP 36.1
== END 2024-08-23 10:00 | disposition home or self-care (01) | DRG 807 ==
LOC: WPOUT 11:19 → WP 11:20
PROVIDERS: Admitting Provider Obstetrics & Gynecology; PCP Student in an Organized Health Care Education/Training Program; Referring Provider Obstetrics & Gynecology; Visit Provider Obstetrics & Gynecology
DX: O77.0 Labor and delivery complicated by meconium in amniotic fluid (principal); Z37.0 Single live birth; O70.1 Second degree perineal laceration during delivery; Z3A.40 40 weeks gestation of pregnancy; Z79.82 Long term (current) use of aspirin; Z79.899 Other long term (current) drug therapy
CPT/HCPCS: 59025; 59050; 85025; 86780; 86850; 86900; 86901; 99221; A4216; G0378; J2405

== ENCOUNTER → 2025-02-10 | Outpatient (CLI) | payer OTHER, SELFPAY ==
[2025-02-10 12:32] LABS: Hematocrit 41.7 % (37-47); Hemoglobin 13.6 g/dL (12.0-15.0); Immature Granulocytes Count 0.030 X10^3/uL (0.0-0.0); Mean Corp Hgb Conc 32.6 g/dL (32-36); Mean Corpuscular Volume 86.2 fL (81-99); Mean Platelet Vol. 9.5 fl (6.2-12.0); NRBC Flagged by Analyzer 0 % (0-5); Platelet Count 305 K/mm3 (150-450); RBC Distribution Width CV 13.2 % (11.6-14.6); RBC Distribution Width SD 41.1 fl (35.1-43.9); Red Blood Count 4.84 M/mm3 (4.2-5.4); White Blood Count 8.7 K/mm3 (4.4-11.0)
[2025-02-10 13:19] LABS: AST(SGOT) 15 U/L (<=31); Alanine Aminotransfer ALT/SGPT 13 U/L (<=34); Albumin, Serum 4.4 g/dL (3.5-5.0); Alkaline Phosphatase 84 U/L (35-104); Anion Gap 13 (5-15); BUN 17 mg/dL (4-19); BUN/Creat Ratio 19.4 RATIO (10-20); Calcium,Total 9.1 mg/dL (7.6-11.0); Carbon Dioxide 21.3 mmol/L (21.0-32.0); Chloride 104 mmol/L (98-108); Globulin 2.7 g/dL (2.2-4.2); Glucose 78 mg/dL (70-99); Iron 104 ug/dL (50-170); Iron Binding Capacity,Total 310 ug/dL (250-450); Iron Binding Capacity,Unsat 206 ug/dL (228-428); Potassium 3.7 mmol/L (3.3-5.1); Vitamin B12 448 pg/mL (180-914); Vitamin D,25 Hydroxy 51.1 ng/mL (30-100)
[2025-02-10 13:32] LABS: Cholesterol 201 mg/dL (<=200); Low Density Lipoprotein Calc. 110 mg/dL; Triglycerides 43 mg/dL; Very Low Density Lipoprotein 9 mg/dL (5-40); cholesterol:hdl ratio screen 2.42
== END | disposition home or self-care (01) ==
LOC: LAB 11:57
PROVIDERS: PCP Student in an Organized Health Care Education/Training Program; Referring Provider Student in an Organized Health Care Education/Training Program; Visit Provider Student in an Organized Health Care Education/Training Program
DX: Z00.00 Encounter for general adult medical examination without abnormal findings (principal)
CPT/HCPCS: 36415; 80053; 80061; 82306; 82607; 83036; 83540; 83550; 84439; 84443; 85025